=== PATIENT | female | born 1955 | race Caucasian/White ===

== ENCOUNTER 2016-05-07 02:03 | Inpatient (IN) | payer OTHER ==
[2016-05-04 09:15] VITALS: BP 140/80
[2016-05-04 10:01] LABS: BASO # 0.1 10*3/uL (0.0-0.1); BASO % 0.5 % (0.0-1.0); EOS # 0.1 10*3/uL (0.0-0.4); EOS % 0.9 % (1.0-4.0); HEMATOCRIT 38.7 % (37.0-47.0); HEMOGLOBIN 12.4 g/dl (12.0-16.0); IG # 0.1 10*3/uL (0.0-0.1); LYMPH # 1.6 10*3/uL (1.3-4.4); LYMPH % 13.3 % (27.0-41.0); MEAN CELL VOLUME 77.7 fl (81.0-99.0); MEAN CORPUSCULAR HGB 24.9 pg (27.0-31.0); MONO # 0.6 10*3/uL (0.1-1.0); NEUT # 9.4 10*3/uL (2.3-7.9); NEUT % 79.9 % (47.0-73.0); PLATELET COUNT AUTOMATED 378 10*3/uL (130-400); RED BLOOD COUNT 4.98 10*6/uL (4.10-5.10); RED CELL DISTRI WIDTH 17.4 % (0-14.5); WHITE BLOOD COUNT 11.8 10*3/uL (4.8-10.8)
[2016-05-04 10:23] LABS: BILIRUBIN NEGATIVE (NEGATIVE); BLOOD NEGATIVE (NEGATIVE); CLARITY CLOUDY (CLEAR); COLOR YELLOW (YELLOW); GLUCOSE NEGATIVE (NEGATIVE); KETONE NEGATIVE (NEGATIVE); LEUKO ESTERASE 1+ (NEGATIVE); NITRITE NEGATIVE (NEGATIVE); PH 6.5 (5.0-9.0); PROTEIN TRACE (NEGATIVE); SPECIFIC GRAVITY 1.025 (1.005-1.030)
[2016-05-04 10:38] LABS: CHLORIDE 102 mmol/L (98-107); POTASSIUM 4.1 mmol/L (3.5-5.1); SODIUM 135 mmol/L (136-145)
[2016-05-04 10:41] LABS: PROTHROMBIN TIME 10.4 SECONDS (9.0-12.4)
[2016-05-04 11:01] LABS: ALBUMIN 3.5 gm/dl (3.1-4.5); BACTERIA 3+; BILIRUBIN, DIRECT < 0.1 mg/dL (0.0-0.2); BILIRUBIN, TOTAL 0.4 mg/dl (0.2-1.0); BUN 9 mg/dl (7-24); CARBON DIOXIDE 20 mmol/L (21-32); EPITHELIAL CELLS 15-20; EST GLOM FILT AFRICAN AMERICAN > 60 ml/min; GLUCOSE 107 mg/dL (65-99); SGOT/AST 25 IU/L (3-35); SGPT/ALT 17 U/L (12-78); TOTAL PROTEIN 7.7 gm/dL (6.4-8.2)
[2016-05-04 11:02] LABS: CALCIUM OXALATE CRYSTALS TRACE
[2016-05-04 11:03] LABS: ALKALINE PHOSPHATASE 73 U/L (45-117)
[2016-05-07] VITALS (14 sets, daily range): BP systolic 125–181; BP diastolic 70–97
[~2016-05-07] VITALS: Ht 154.9 cm; Wt 62.4 kg
--- NOTE | ~2016-05-07 | CON ---
[place], [place] REPORT OF CONSULTATION NAME: ADITHYA WILLIS [facility] WITH [facility] #: [id number] UNIT #: [id number] ROOM: [facility] DOCTOR: DALILA MELENDREZ MD BIRTHDATE: [birth year] DOS: 05/09/2016 PULMONARY CONSULTATION EVALUATION AND MANAGEMENT CONSULTATION REQUESTED BY: Dr. Saucedo. REASON FOR CONSULTATION: To assess the patient for acute respiratory failure. HISTORY OF PRESENT ILLNESS: This is a 61-year-old white female who has been hospitalized since 05/07/2016. The patient has been admitted under the care of Dr. Saucedo for management of hiatal hernia. The patient had hiatal hernia surgery done with James fundoplication on 05/07/2016. The patient has been admitted to the hospital. The patient has been noted with progressive increased respiratory failure with hypoxia. The patient has been getting oxygen supplementation at this time with a venturi mask. The patient has been noted with coughing, which has not been noted with any sputum expectoration. The patient denies any symptoms of hemoptysis. The coughing has been noted without any sputum expectoration, shortness of breath was noted with wheezing as well. The patient has been complaining of some pain in the abdomen, most likely postsurgery which had been treated with IV pain medications. The patient has already had a CT scan of the chest, abdomen and pelvis done as well as a V/Q scan, which had been ordered by the primary care attending. The patient denies any symptoms of hemoptysis. REVIEW OF SYSTEMS: CONSTITUTIONAL: She does complain of symptoms of fatigue and tiredness without any fever or chills. EYES: Denies any burning, redness or tenderness. EARS, NOSE, THROAT SYMPTOMS: No sore throat, hoarseness, otalgia or postnasal drainage. CARDIOVASCULAR SYSTEM: Denies anginal pain, edema or pain of the lower extremities. GASTROINTESTINAL SYMPTOMS: Some abdominal pain was noted for this patient, but denies any nausea, vomiting, diarrhea, hematemesis, melena or hematochezia. GENITOURINARY: Denies dysuria, suprapubic pain or hematuria. SKIN: Denies any lesions or rashes. CENTRAL NERVOUS SYSTEM: Generalized weakness without symptoms of seizures, migraine headache or tingling sensations. Remaining systems were reviewed with the patient, they were noted all negative. The past medical history for the patient was noted with recent hospitalization as the patient had been treated in this hospital in April 2014. The patient remained in the hospital from ____ for the medical management of intractable vomiting, also noted with lactic acidosis at that time. PAST MEDICAL HISTORY: 1. History of hiatal hernia. 2. Anxiety and depression. 3. Chronic nicotine dependency. [place], [place] REPORT OF CONSULTATION NAME: ADITHYA WILLIS UNIT #: [id number] ROOM: [facility] DOCTOR: CINDY MELENDREZ MDM BIRTHDATE: [birth year] 4. Diverticulosis. 5. Peptic ulcer disease. 6. Arthritis. 7. Nonspecific colitis also described. PAST SURGICAL HISTORY: 1. Gastric surgery for this patient for removal of the bezoar. 2. Carpal tunnel repair. 3. Past EGD and colonoscopy. 4. Left rotator cuff surgery. 5. Tonsillectomy. 6. Teeth extraction. SOCIAL HISTORY: The patient stated that she is currently . She denies any history of alcohol use. Denies any illicit drugs use. She has 1 child. The smoking for the patient started as a teenager, was smoking 1 pack of cigarettes per day and stated that she was not smoking cigarettes a few days prior to admission to the hospital. FAMILY HISTORY: Mother 80 years old without any illnesses. The father is living, 80 years old with history of diabetes and parkinsonism. HOME MEDICATIONS: Listed prior to admission is use of Prozac, Neurontin, Prilosec, Zantac and Restoril. DRUG ALLERGIES: No known drug allergies. PHYSICAL EXAMINATION: GENERAL: This is a 61-year-old white female who has been noted currently with some distress at this time with tachypnea at rest, getting oxygen supplementation with the nasal cannula. Height for the patient recorded by the nursing staff at the time of admission was a height of 5 feet 1 inch, weight of 137 pounds, BMI 26.8. VITAL SIGNS: For the patient, which has been reviewed for this patient shows the temperature noted as normal, respiratory rate of 18-22, heart rate 91-112, blood pressure 137/62 to 140/76. Intake for the patient 900, output 1525 mL. Pulse oxygen saturation of the patient noted on venturi mask at this time as 91-92% saturation. HEENT: Examination of head was atraumatic. Eyes nonicterus. NECK: Supple. Oral mucosa was mildly dry. CARDIOVASCULAR SYSTEM: S1, S2 is audible. LUNGS: Noted crackles in the lungs, more on the left than the right side with moderate expiratory wheezing noted in the lungs bilaterally. ABDOMEN: Noted with some superficial tenderness. Bowel sounds present. EXTREMITIES: Show no edema, clubbing, or cyanosis. NEUROLOGIC: Cranial nerves 2-12 intact. No focal deficits. SKIN: No lesions or rashes. MUSCULOSKELETAL: No acute deformities. LABORATORY DATA: CBC that was done for the patient on 05/04/2016 as an [place], [place] REPORT OF CONSULTATION NAME: ADITHYA WILLIS UNIT #: [id number] ROOM: [facility] [birth year] outpatient, WBC count 11.8, hemoglobin, hematocrit and platelet count were normal. Outpatient chest x-ray of the patient on 05/07/2016, was noted without any acute pulmonary abnormalities. INR for patient on 05/04/2016 as an outpatient normal. BMP of the patient as an outpatient on 05/04/2016 was noted as sodium 135, CO2 of 20, remaining CMP was normal. CBC on 05/08/2016 for this patient, hemoglobin 10.6, hematocrit 34.0, platelet count was normal. CMP of the patient on 05/08/2016, glucose 107, remaining CMP was normal except albumin mildly decreased at 2.6 and total protein was also noted to be mildly decreased. CMP of the patient that was done today shows glucose of 122, BUN and creatinine was normal, albumin 2.7, AST 85. CBC this morning, WBC count of 16.1, hemoglobin 10.4, hematocrit 34.8, platelet count 257,000. Chest x-ray which was done on 05/07/2016 for the patient was with pulmonary venous congestion noted with evidence of infiltration with some atelectasis in the left lower lobe as well with possibility of pneumonia would be considered. CT scan of the chest which was done for the patient without contrast shows infiltration, which has been noted involving almost all of the subsegments of the left lung. Small right lower lobe infiltration of the patient was also noted with associated infiltration. Sequelae of the upper abdominal surgery of the patient was described as [id number] haziness described surrounding the proximal stomach within the lesser sac favored reflecting the mesenteric edema. There was no focal collection for this patient noted. The abdominal organ vascularity cannot be assessed correctly because of the lack of the IV contrast use. The V/Q scan for the patient was also completed today, which shows low probability of pulmonary embolism. Another chest x-ray of the patient which was done on 05/09/2016 shows increased infiltration for the patient, which is noted to be progressive for this patient in the left lung. I had also ordered the blood gases of the patient, as assessed for the patient shows pH of 7.30, pCO2 of 61, pO2 of 66.8 on 40% oxygen supplementation. IMPRESSION: 1. The patient with acute hypoxic respiratory failure after recent surgery for this patient with possibility of aspiration to be considered and interval development of pneumonia with areas of atelectasis with acute exacerbation of chronic obstructive pulmonary disease concomitantly as well as a result. The aspiration organism to be considered for community-acquired infection is the patient's Gram-positive organism in the differential diagnosis. 2. Status post James fundoplication for the patient as well noted with repair of the hiatal hernia. PLAN OF TREATMENT: The patient has been ordered BiPAP with setting of 16/10 for this patient for the next 3 hours with reassessment of the arterial blood gases to make further changes in the medical management. She was also started on IV Solu-Medrol. The bronchodilators have been started for this patient previously q.6 hours by the primary care attending were changed every 4 hours. She was also started on antibiotics orally and intravenously for coverage of the Gram-positive organisms. Monitor respiratory status closely in case of further worsening of the respiratory status and in spite of the current treatment, the patient might require intubation and mechanical ventilation if the respiratory failure progresses. The respiratory failure noted is acute hypercapnic and hypoxic in nature. The other previous pain medications are to be continued [place], [place] REPORT OF CONSULTATION NAME: ADITHYA WILLIS Cathryn UNIT #: [id number] ROOM: [facility] DOCTOR: DALILA MELENDREZ MD BIRTHDATE: [birth year] including continuation of DVT prophylaxis. The diagnosis of pulmonary embolism was noted low in the clinical assessment and is already sufficiently excluded with the V/Q scan for this patient, no further assessment will be necessary. Thank you for allowing me to participate in the care of this patient. DALILA ROCA MD CM:CONSTR:REPORT OF CONSULTATION 1516 05/11/16 0931 interface
--- NOTE | ~2016-05-07 | O ---
[place], [place] OPERATIVE NOTE NAME: ADITHYA WILLIS [facility] #: [id number] UNIT #: [id number] ROOM: 412 DOCTOR: DANE CHRISTIE MD BIRTHDATE: [birth year] DOS: 05/07/2016 PREOPERATIVE DIAGNOSIS: Hiatal hernia. POSTOPERATIVE DIAGNOSIS: Hiatal hernia. PROCEDURE: Hiatal hernia repair with James fundoplication. SURGEON: Dane Christie MD FURNITURE ASSEMBLY SUPERVISOR: MS3. ANESTHESIA: GET. INDICATIONS: This is a 61-year-old lady with a history of a symptomatic hiatal hernia with gastroesophageal reflux disease, who is here for the above-mentioned procedure. The procedure and its complications were explained to the patient in detail. Complications that were discussed included but were not limited to bleeding, infection, hematoma/seroma/abscess formation, prolonged postoperative pain, damage to the underlying vital structures, recurrence, and incisional hernia formation. She agreed to proceed. DESCRIPTION OF PROCEDURE: After identifying the patient, the patient was brought to the operating suite and laid in the supine position. After induction of general anesthesia, a Valente catheter was placed and the parts were then painted and draped in the usual sterile fashion. A time-out procedure was called. An incision in the upper abdomen was made in the midline. The skin and the subcutaneous tissue were incised in the line of the incision. The fascia was incised and the peritoneum was opened. A Bookwalter retractor was placed after the left triangular ligament was incised. The hernia was reduced in its entirety and the hernial sac itself was dissected away from the gastroesophageal region. The retroesophageal space was cleared and a [place] drain was passed in order to get good retraction. The remnants of the hernial sac were then excised and a good segment of the esophagus was obtained intraabdominally and it was ensured that the entire stomach was now in the abdominal cavity. At this point, two edges of the crura were approximated with the help of 0 silk in an interrupted fashion until adequate closure was obtained. Thereafter, the short gastric vessels were taken down with the help of LigaSure device and the fundus of the stomach was then passed under the esophagus and a fundoplication was performed with the help of 0 silk in an interrupted fashion as well. This was all done after a 50-Indonesian bougie was placed in order to get an adequate approximation and an approximation which was not too tight. Thereafter, the NG-tube was passed and it was confirmed to be placed in the stomach. Hemostasis was achieved and confirmed. Saline was used for irrigation. Thereafter, the fascia was approximated with the help of looped PDS in a running fashion. The skin edges were approximated with the help of susannah. Thereafter, the edges were approximated after the edges were infiltrated with 1% plain lidocaine. A dressing was placed. The patient tolerated the procedure well. An EGD was performed postoperatively by me and it showed that there was no obvious injury, ulceration, bleeding in this lumen of the stomach and lumen of the esophagus was [place], [place] OPERATIVE NOTE NAME: ADITHYA WILLIS UNIT #: [id number] ROOM: [facility] DOCTOR: DANE CHRISTIE MD BIRTHDATE: [birth year] not compromised. The patient was extubated uneventfully and brought back to the recovery room in a stable fashion. Dr. Dane Christie, the attending surgeon, was present throughout the operating case. Dane Christie MD CM:OPRECORD:OPERATIVE NOTE [id number] DANE CHRISTIE MD 05/07/16 1123 interface
--- NOTE | ~2016-05-07 | PR ---
[place], [place] PROGRESS NOTE NAME: ADITHYA WILLIS [facility] #: [id number] UNIT #: [id number] ROOM: [facility] DOCTOR: ABELINO HAINES MD,DALILA BIRTHDATE: [birth year] DOS: 05/10/2016 SUBJECTIVE: The patient was seen and examined on 05/10/2016. She has been noted to be quite comfortable at this time. Transferred to intensive care unit for further medical management including chronic severe hypercapnia and hypoxic respiratory failure. The patient has been responding to current treatment. She has expectorated a moderate amount of sputum this morning as well. The culture of the sputum for this patient has been sent to the lab. She had not been noted with symptoms of chest pain or any abdominal pain. Shortness of breath has been noted, better. OBJECTIVE: VITAL SIGNS: Normal temperature 99 degrees Fahrenheit, respiratory rate 24-21, heart rate 88-89, blood pressure 150/80 to 154/76. Intake is 150, output 2100 mL, negative mL. Pulse oxygen saturation is 3 liters, nasal cannula 93% saturation recorded. HEENT: Showed no new change. NECK: Supple. CARDIOVASCULAR: S1, S2 audible. LUNGS: Examination of the lungs for this patient noted with crackles of the lungs, noted mostly in the left side. There was no wheezing. ABDOMEN: Soft, nontender. EXTREMITIES: Show no edema. LABORATORY DATA: Arterial blood gas this morning for the patient showed a pH of 7.38, PCO2 of 47.9, PO2 of 114, on oxygen supplementation, nasal cannula. The arterial blood gas of the patient that was done yesterday for this patient after use of the BiPAP, the patient had 40% pH of 7.29, PCO2 of 63, PO2 of 82.6. Chest x-ray that was done this morning for the patient was reviewed as well, it shows infiltration for the patient noted to be decreased; however, significant infiltration is still noted in the left lingula and the left lower lobe. IMPRESSION: The patient with acute hypercapnic and hypoxic respiratory failure with chronic obstructive pulmonary disease exacerbation as well as the possibility of aspiration pneumonia for the patient with gram-positive organism, currently responding to treatment effectively. Reduction of pulmonary infiltration noted. Overall, the patient has been noted with improvement in the respiratory status. The wheezing was also noted to be much better. PLAN OF TREATMENT: Continue the current plan of management, antibiotics, bronchodilators, oxygen supplementation. Monitor respiratory status including culture results. Use of the BiPAP intermittently during the daytime and continuing at nighttime is still advised. Start reduction of the Solu-Medrol for the patient from tomorrow morning. Other supportive plan and management to be continued. Usual care. [place], [place] PROGRESS NOTE [id number] #: [id number] ROOM: [facility] DOCTOR: DALILA MELENDREZ MD BIRTHDATE: [birth year] DALILA ROCA MD CM:PNTRANS [id number] DALILA HAINES MD 05/11/16 0244 interface
--- NOTE | ~2016-05-07 | PR ---
[place], [place] PROGRESS NOTE NAME: ADITHYA WILLIS UNIT #: [id number] ROOM: 502 DOCTOR: ABELINO HAINES MD,DALILA BIRTHDATE: [birth year] DOS: 05/11/2016 PULMONARY PROGRESS NOTE SUBJECTIVE: She has been showing progressive reduction of the respiratory complaints at this time. This morning she has been using oxygen supplementation nasal cannula. She has not been noted with symptoms of chest pain, nausea, vomiting. BiPAP has been also used the patient intermittently. She has been resting, eating her food which has been advanced to a normal diet this morning with the breakfast. OBJECTIVE: VITAL SIGNS: Shows a normal temperature, respiratory rate of 14, heart rate of 73, blood pressure 124/67 this morning recorded, pulse oxygen saturation 98% saturation noted on nasal cannula and 97% to 99 on 35% oxygen with the BiPAP. HEENT: Showed no new change. NECK: Supple. CARDIOVASCULAR SYSTEM: S1, S2 audible. LUNGS: Noted scattered crackles of the lungs was noted. ABDOMEN: Soft and nontender. EXTREMITIES: Shows no edema. LABORATORY DATA: Culture of the sputum of yesterday of the patient was still pending at this time. Final results were not available as yet. The chest x-ray of the patient shows PICC line noted in place. The patient was noted with pulmonary infiltration with evidence of superimposed pulmonary venous congestion. IMPRESSION: 1. Resolving acute aspiration pneumonia, gram-positive organisms with improving acute hypoxic respiratory failure and hypercapnic respiratory failure as well. 2. Acute exacerbation of chronic obstructive pulmonary disease, improving as well. PLAN OF TREATMENT: Dose of Solu-Medrol has been decreased to 40 mg today. The patient could be transferred to another floor. Continue current antibiotic. The patient is on doxycycline oral use. One dose of Lasix will be given intravenously. Supportive care, other therapy, plan of management as well. Potential discharge in the morning would be considered for the patient based on the improvement in the cardiorespiratory status. BMP will be done in the morning to assess the BUN and creatinine and the potassium because of the use of Lasix. Another chest x-ray will be repeated in the morning as well. [place], [place] PROGRESS NOTE NAME: ADITHYA WILLIS UNIT #: [id number] ROOM: [facility] DOCTOR: DALILA MELENDREZ MD BIRTHDATE: [birth year] DALILA ROCA MD CM:PNTRANS [id number] DALILA HAINES MD 05/11/16 2328 interface
--- NOTE | ~2016-05-07 | PR ---
[place], [place] PROGRESS NOTE NAME: ADITHYA WILLIS UNIT #: [id number] ROOM: 502 DOCTOR: DALILA MELENDREZ MD BIRTHDATE: [birth year] DOS: 05/12/2016 PULMONARY FOLLOWUP SUBJECTIVE: She has been noted with much further improvement in the respiratory symptom. Denies symptoms of chest pain or any abdominal pain. The coughing has been improving. OBJECTIVE: VITAL SIGNS: The patient, which have been recorded, shows a normal temperature, respiratory rate 18, heart rate of 64. Blood pressure 126/82. Intake is 1000, output was not clearly documented, pulse oxygen 94% on room air at rest. HEENT: Showed no acute change. NECK: Supple. CARDIOVASCULAR: S1, S2 audible. LUNGS: Noted without any crackles or wheezing on the right side, basilar crackles noted in the left lower lung. ABDOMEN: Soft and nontender. LABORATORY DATA: The potassium level noted as 2.8 today. IMPRESSION: 1. The patient with progressive resolution of acute exacerbation of chronic obstructive pulmonary disease with resolving acute pneumonia. The chest x-ray also noted reduction of pulmonary infiltration. 2. Hypokalemia secondary to diuretics. PLAN OF TREATMENT: Supplementation of potassium has been ordered for the patient orally. Other previous treatment plan and management as well. Usual care. All other supportive plan of therapy and management. Three doses of potassium will be given orally for this patient today with repeat potassium level will be done later part of the afternoon. Potential discharge for patient could be considered for this patient after the potassium if it is noted normal. [place], [place] PROGRESS NOTE NAME: ADITHYA WILLIS UNIT #: [id number] ROOM: [facility] DOCTOR: DALILA MELENDREZ MD BIRTHDATE: [birth year] DALILA ROCA MD CM:PNTRANS [phone] DALILA HAINES MD 05/12/16 1109 interface
[~2016-05-07 02:03] MED LIST: ACETAMINOPHEN-H1 TA2 PO; ALBUTEROL0.09 MG/A2 IH; ALPRAZOLAM0.25 M2 PO; ATARAX,VISTARIL50 MG PO; ATIVAN1 MG PO; BENTYL10 MG PO; CELEXA40 MG PO; CIPRO500 MG PO; CITALOPRAM HYDR40 MG PO; CORDROL20 MG PO; Carafate1 GM PO; D-1000 185 MG-11 TAB PO; FLAGYL500 MG PO; FLEXERIL10 MG PO; GOOD NEIGHBOR100 M6 PO; HYDROCODONE BIT1 T11 PO; K-Dur 20MEQ20 MEQ PO; LEVAQUIN750 MG PO; LOMOTIL 0.025 M1 TA1 PO; METRONIDAZOLE500 M1 PO; MOTRIN800 MG PO; NAPROSYN500 MG PO; NATURE'S BLEND F1 MG PO; NEURONTIN300 MG PO; NEURONTIN600 MG PO; NICOTINE T21 MG/24 H T; OXYCODONE5 M1 PO; PANTOPRAZOLE SO40 MG PO; PERCOCET 325 MG1 TA2 PO; PHENERGAN25 M3 PO; PRILOSEC20 M1 PO; PRILOSEC40 MG PO; PROZAC20 MG PO; Percocet 325 MG1 TAB PO; Phenergan25 MG PO; RESTORIL15 MG PO; RESTORIL30 M1 PO; ROBAXIN750 MG PO; THERA1 TAB PO; TYLENOL WITH CO1 TAB PO; VISTARIL25 M1 PO; VISTARIL25 MG PO; XANAX0.25 MG PO; XANAX2 M1 PO; ZANTAC 150150 MG PO; ZOFRAN ODT4 MG SL; ZOFRAN4 MG PO
[2016-05-08] VITALS: BP 143/69
[2016-05-08 06:32] LABS: BASO % 0.2 % (0.0-1.0); EOS # 0.1 10*3/uL (0.0-0.4); EOS % 0.9 % (1.0-4.0); HEMOGLOBIN 10.6 g/dl (12.0-16.0); LYMPH # 1.9 10*3/uL (1.3-4.4); LYMPH % 18.1 % (27.0-41.0); MEAN CELL VOLUME 81.1 fl (81.0-99.0); MEAN CORPUSCULAR HGB 25.3 pg (27.0-31.0); MEAN CORPUSCULAR HGB CONC 31.2 g/dl (33.0-37.0); MEAN PLATELET VOLUME 9.4 fl (9.6-12.3); MONO # 0.6 10*3/uL (0.1-1.0); MONO % 6.1 % (3.0-9.0); NEUT # 7.7 10*3/uL (2.3-7.9); NEUT % 74.3 % (47.0-73.0); PLATELET COUNT AUTOMATED 285 10*3/uL (130-400); RED BLOOD COUNT 4.19 10*6/uL (4.10-5.10); RED CELL DISTRI WIDTH 18.1 % (0-14.5); WHITE BLOOD COUNT 10.4 10*3/uL (4.8-10.8)
[2016-05-08 06:46] LABS: ALBUMIN 2.6 gm/dl (3.1-4.5); ALKALINE PHOSPHATASE 63 U/L (45-117); BILIRUBIN, TOTAL 0.3 mg/dl (0.2-1.0); BUN 10 mg/dl (7-24); CARBON DIOXIDE 24 mmol/L (21-32); CHLORIDE 108 mmol/L (98-107); EST GLOM FILT AFRICAN AMERICAN > 60 ml/min; GLUCOSE 107 mg/dL (65-99); POTASSIUM 3.9 mmol/L (3.5-5.1); SGOT/AST 66 IU/L (3-35); SGPT/ALT 36 U/L (12-78); SODIUM 142 mmol/L (136-145); TOTAL PROTEIN 6.1 gm/dL (6.4-8.2)
[2016-05-08 08:00] VITALS: BP 140/80
[2016-05-08 12:00] VITALS: BP 128/72
[2016-05-08 16:00] VITALS: BP 135/64
[2016-05-08 20:00] VITALS: BP 140/60
[2016-05-09] VITALS: BP 137/62
[2016-05-09 07:27] LABS: CHLORIDE 107 mmol/L (98-107); POTASSIUM 3.9 mmol/L (3.5-5.1); SODIUM 142 mmol/L (136-145)
[2016-05-09 07:34] LABS: BASO % 0.2 % (0.0-1.0); EOS % 0.1 % (1.0-4.0); HEMATOCRIT 34.8 % (37.0-47.0); HEMOGLOBIN 10.4 g/dl (12.0-16.0); IG # 0.1 10*3/uL (0.0-0.1); LYMPH # 0.8 10*3/uL (1.3-4.4); LYMPH % 4.7 % (27.0-41.0); MEAN CORPUSCULAR HGB 25.4 pg (27.0-31.0); MEAN CORPUSCULAR HGB CONC 29.9 g/dl (33.0-37.0); MEAN PLATELET VOLUME 9.5 fl (9.6-12.3); MONO # 0.8 10*3/uL (0.1-1.0); MONO % 4.7 % (3.0-9.0); NEUT # 14.5 10*3/uL (2.3-7.9); NEUT % 89.7 % (47.0-73.0); PLATELET COUNT AUTOMATED 257 10*3/uL (130-400); RED BLOOD COUNT 4.09 10*6/uL (4.10-5.10); WHITE BLOOD COUNT 16.1 10*3/uL (4.8-10.8)
[2016-05-09 07:36] LABS: ALBUMIN 2.7 gm/dl (3.1-4.5); ALKALINE PHOSPHATASE 68 U/L (45-117); BILIRUBIN, TOTAL 0.3 mg/dl (0.2-1.0); BUN 10 mg/dl (7-24); CARBON DIOXIDE 24 mmol/L (21-32); EST GLOM FILT AFRICAN AMERICAN > 60 ml/min; GLUCOSE 122 mg/dL (65-99); SGOT/AST 85 IU/L (3-35); SGPT/ALT 34 U/L (12-78); TOTAL PROTEIN 6.8 gm/dL (6.4-8.2)
[2016-05-09 07:38] LABS: MEAN CELL VOLUME 85.1 fl (81.0-99.0)
[2016-05-09 08:00] VITALS: BP 140/76
[2016-05-09 12:00] VITALS: BP 149/80
[2016-05-09 14:05] LABS: ABG BASE EXCESS 2.5 mmol/L (-2.0-2.0); ABG CO2 CONTENT 31.5 mmol/L (23-27); ABG HCO3 29.6 mmol/l (22-26); ABG TEMPERATURE 98.2 F (98.0-99.0); ARTERIAL BLOOD GAS PH 7.301 (7.35-7.45); ARTERIAL BLOOD GAS PO2 66.8 mmHg (80-90)
[2016-05-09 16:00] VITALS: BP 111/62
[2016-05-09 18:40] LABS: ABG BASE EXCESS 2.9 mmol/L (-2.0-2.0); ABG CO2 CONTENT 32.1 mmol/L (23-27); ABG HCO3 30.2 mmol/l (22-26); ABG TEMPERATURE 97.9 F (98.0-99.0); ARTERIAL BLOOD GAS PH 7.298 (7.35-7.45); ARTERIAL BLOOD GAS PO2 82.6 mmHg (80-90)
[2016-05-09 20:00] VITALS: BP 124/68
[2016-05-10] VITALS (7 sets, daily range): BP systolic 123–158; BP diastolic 71–82
[2016-05-10 06:00] LABS: HEMATOCRIT 33.1 % (37.0-47.0); MEAN CORPUSCULAR HGB 25.1 pg (27.0-31.0); MEAN CORPUSCULAR HGB CONC 30.2 g/dl (33.0-37.0); MEAN PLATELET VOLUME 9.8 fl (9.6-12.3); PLATELET COUNT AUTOMATED 261 10*3/uL (130-400); RED BLOOD COUNT 3.99 10*6/uL (4.10-5.10); RED CELL DISTRI WIDTH 17.9 % (0-14.5); WHITE BLOOD COUNT 8.6 10*3/uL (4.8-10.8)
[2016-05-10 06:20] LABS: ALBUMIN 2.8 gm/dl (3.1-4.5); ALKALINE PHOSPHATASE 65 U/L (45-117); BILIRUBIN, TOTAL 0.3 mg/dl (0.2-1.0); BUN 19 mg/dl (7-24); CARBON DIOXIDE 29 mmol/L (21-32); CHLORIDE 103 mmol/L (98-107); EST GLOM FILT AFRICAN AMERICAN > 60 ml/min; GLUCOSE 161 mg/dL (65-99); POTASSIUM 3.9 mmol/L (3.5-5.1); SGOT/AST 63 IU/L (3-35); SGPT/ALT 32 U/L (12-78); SODIUM 142 mmol/L (136-145); TOTAL PROTEIN 7.6 gm/dL (6.4-8.2)
[2016-05-10 07:00] LABS: LYMPHOCYTE # 0.6 10*3/uL (1.3-4.4); MONOCYTE # 0.1 10*3/uL (0.1-1.0); NEUTROPHIL # 7.9 10*3/uL (2.3-7.9); NEUTROPHILS 92 % (47-73); PLATELET SUFFICIENCY NORMAL (NORMAL); TOTAL CELLS COUNTED 100 #CELLS
[2016-05-10 10:05] LABS: ABG BASE EXCESS 3.1 mmol/L (-2.0-2.0); ABG CO2 CONTENT 29.7 mmol/L (23-27); ABG HCO3 28.3 mmol/l (22-26); ARTERIAL BLOOD GAS PH 7.387 (7.35-7.45)
[2016-05-11] VITALS: BP 135/71
[2016-05-11 04:00] VITALS: BP 124/67
[2016-05-11 06:57] LABS: BASO % 0.1 % (0.0-1.0); HEMATOCRIT 28.9 % (37.0-47.0); IG # 0.1 10*3/uL (0.0-0.1); LYMPH # 0.7 10*3/uL (1.3-4.4); MEAN CELL VOLUME 81.4 fl (81.0-99.0); MEAN CORPUSCULAR HGB 25.4 pg (27.0-31.0); MEAN CORPUSCULAR HGB CONC 31.1 g/dl (33.0-37.0); MEAN PLATELET VOLUME 9.4 fl (9.6-12.3); MONO # 0.5 10*3/uL (0.1-1.0); MONO % 4.3 % (3.0-9.0); NEUT # 9.9 10*3/uL (2.3-7.9); NEUT % 88.6 % (47.0-73.0); PLATELET COUNT AUTOMATED 253 10*3/uL (130-400); RED BLOOD COUNT 3.55 10*6/uL (4.10-5.10); RED CELL DISTRI WIDTH 17.9 % (0-14.5); WHITE BLOOD COUNT 11.2 10*3/uL (4.8-10.8)
[2016-05-11 07:13] LABS: ALBUMIN 2.5 gm/dl (3.1-4.5); ALKALINE PHOSPHATASE 55 U/L (45-117); BILIRUBIN, TOTAL 0.3 mg/dl (0.2-1.0); BUN 20 mg/dl (7-24); CARBON DIOXIDE 30 mmol/L (21-32); CHLORIDE 102 mmol/L (98-107); EST GLOM FILT AFRICAN AMERICAN > 60 ml/min; GLUCOSE 149 mg/dL (65-99); POTASSIUM 3.6 mmol/L (3.5-5.1); SGOT/AST 31 IU/L (3-35); SGPT/ALT 29 U/L (12-78); SODIUM 142 mmol/L (136-145)
[2016-05-11 08:00] VITALS: BP 126/58
[2016-05-11 16:00] VITALS: BP 111/53
[2016-05-11 20:49] VITALS: BP 116/60
[2016-05-12 07:14] LABS: BUN 19 mg/dl (7-24); CARBON DIOXIDE 28 mmol/L (21-32); CHLORIDE 104 mmol/L (98-107); EST GLOM FILT AFRICAN AMERICAN > 60 ml/min; GLUCOSE 94 mg/dL (65-99); POTASSIUM 2.8 mmol/L (3.5-5.1); SODIUM 142 mmol/L (136-145)
[2016-05-12 08:00] VITALS: BP 126/82
[2016-05-12] MEDS ORDERED: Percocet 325 MG1 TAB PO (13:40)
[2016-05-12] MEDS ORDERED: DOXYCYCLINE MO100 M1 PO (13:40)
[2016-05-12] MEDS ORDERED: PREDNISONE10 MG PO (13:42)
== END 2016-05-12 15:53 | disposition home or self-care (01) | DRG 326 ==
LOC: SDC 02:03 → 4E 07:02 → SDC 07:30 → 4E 08:15 → 5E 08:15 → ICCU 08:15 → SDC 09:30 → ICCU 05-09 18:52 → 5E 05-11 14:37
PROVIDERS: Internal Medicine Critical Care Medicine; Surgery
DX: K44.9 Diaphragmatic hernia without obstruction or gangrene (principal); J69.0 Pneumonitis due to inhalation of food and vomit; J96.21 Acute and chronic respiratory failure with hypoxia; J96.22 Acute and chronic respiratory failure with hypercapnia; J44.1 Chronic obstructive pulmonary disease with (acute) exacerbation; J44.0 Chronic obstructive pulmonary disease with (acute) lower respiratory infection; E44.0 Moderate protein-calorie malnutrition; K29.70 Gastritis, unspecified, without bleeding; K21.9 Gastro-esophageal reflux disease without esophagitis; F41.9 Anxiety disorder, unspecified; E87.6 Hypokalemia; T50.2X5A Adverse effect of carbonic-anhydrase inhibitors, benzothiadiazides and other diuretics, initial encounter; F32.9 Major depressive disorder, single episode, unspecified; M19.90 Unspecified osteoarthritis, unspecified site; F17.210 Nicotine dependence, cigarettes, uncomplicated; Z83.3 Family history of diabetes mellitus; Z82.0 Family history of epilepsy and other diseases of the nervous system; Z79.899 Other long term (current) drug therapy; Z68.26 Body mass index [BMI] 26.0-26.9, adult

== ENCOUNTER 2016-05-15 13:31 | Inpatient (IN) | payer OTHER ==
[~2016-05-15] VITALS: Ht 154.9 cm; Wt 55.1 kg
[2016-05-15] VITALS (12 sets, daily range): BP systolic 125–168; BP diastolic 66–91
--- NOTE | ~2016-05-15 | CON ---
[place], [place] REPORT OF CONSULTATION NAME: ADITHYA WILLIS UNIT #: [id number] ROOM: 526 DOCTOR: PAXTON STOCKTON MD BIRTHDATE: [birth year] DOS: 05/17/2016 GASTROENDOSCOPIC REPORT HISTORY OF PRESENT ILLNESS: The patient a 61-year-old who has presented status post hiatal hernia repair, status post and addressed operative gomez. She has been on clear liquid and she has been tolerating clear liquid. She had bowel movements. REVIEW OF SYSTEMS: No hematemesis, no hematochezia, no shortness of breath, no chest pain today postop. Pain of the abdomen with retention sutures. PHYSICAL EXAMINATION: VITAL SIGNS: Stable. HEENT: Benign. NECK: Supple, no thyromegaly. CHEST: Symmetric anatomy, decreased air entry in general. HEART: Normal sinus rhythm. ABDOMEN: sutures are in place. No leaking, no seroma is noticed. Bowel sounds present. EXTREMITIES: No cyanosis. No pedal edema. NEUROLOGIC: Alert, oriented to time, place and person. LABORATORY DATA: Labs and records reviewed. CBC: H and H of 9 and 31. White blood cell of 10, platelet count is 295. Chest x-ray poorly positioned right cephalic PICC otherwise normal single image of the chest without acute findings. IMPRESSION: Postop hiatal hernia repair, recovery in progress, antibiotics, clear liquid, supportive management. PAXTON STOCKTON MD CM:CONSTR:REPORT OF CONSULTATION 1046 05/17/16 4055 interface
--- NOTE | ~2016-05-15 | PROC NOTE ---
[place], [place] PROCEDURE NOTE NAME: ADITHYA WILLIS [facility] #: [id number] UNIT #: [id number] ROOM: 526 DOCTOR: FLAQUITA AHUJA BIRTHDATE: [birth year] DOS: 05/20/2016 MODIFIED BARIUM SWALLOW LOCATION: [facility], room 526, bed #1. DOCTOR: Dr. Saucedo. RADIOLOGIST: Dr. John. BACKGROUND INFORMATION: The patient, a 61-year-old female was seen for modified barium swallow. This patient is status post fundoplication and hiatal hernia repair with dysphagia. Further medical history includes hiatal hernia, anxiety, depression, pancreatitis, GERD, and ethanol abuse. The patient reports that since her surgery in early April, she has been having difficulty swallowing solids, especially bread with a feeling that it is sticking. She states that at times she tries to take a drink, which has not been helpful, but she said eventually with time, the foods seems to go down. She currently receives a soft diet and thin liquids. For today's assessment, she was alert and able to follow all commands. Respiratory status was within normal limits. Oral peripheral examination revealed presence of several bottom teeth only. Lingual, labial, and buccal skills were within normal limits in terms of strength, range of motion, and coordination. The patient was able to volitionally swallow, volitional cough was weak. METHODS AND MATERIALS USED FOR THE EXAM: The patient was positioned in the lateral plane and examination was viewed under fluoroscopy. The patient was presented with a variety of consistencies to assess swallowing skills including applesauce mixed with barium presented in half teaspoon amounts, barium-coated bread presented in bite size piece and thin liquid barium taken by cup. The patient was given the cup and instructed to swallow in her normal sip size amount. ORAL PHASE: The oral phase was unremarkable with all consistencies given. The patient achieved adequate labial seal around cup and spoon with no anterior loss. Bolus formation and transit were adequate. Mastication was slow, but functional with solid consistency. Tongue to palate contact within normal limits. Tongue retraction within normal limits. Velar functioning was within normal limits with no nasal regurgitation displayed. PHARYNGEAL PHASE: The pharyngeal swallow occurred within a timely manner. During the swallow, laryngeal elevation and epiglottic function were within normal limits with no penetration or aspiration occurring with any consistency. There was no residue in the vallecula or pyriform post swallow. ESOPHAGEAL PHASE: This phase of the swallow was not formally assessed during this examination. [place], [place] PROCEDURE NOTE NAME: ADITHYA WILLIS UNIT #: [id number] ROOM: 526 DOCTOR: FLAQUITA AHUJA BIRTHDATE: [birth year] IMPRESSIONS AND RECOMMENDATIONS: Based upon assessment results, this 61-year-old patient displayed safe oral and pharyngeal swallowing skills for puree, solid and thin liquid consistencies. The patient reported that bread has been difficult due to a feeling of globus post swallow. She was assessed with bread and demonstrated no oral or pharyngeal difficulty. Following the exam, she stated that she felt like the bread was stuck and pointed to her upper sternal area; due to this, she may benefit from a barium swallow to further assess the esophageal phase. No diet changes are recommended at this time. Recommended that the patient use safe swallow strategies with meals, such as small bites and sips, chewing thoroughly and alternating liquids and solids. The patient verbalized understanding of all information provided. No followup treatment is recommended at this time. The patient's nurse was also educated on results and recommendations and verbalized understanding. Thank you very much for this referral. Should you have any questions regarding this patient, please contact the speech pathologist at [phone]. FLAQUITA AHUJA CM:PROCNOTE:PROCEDURE NOTE [id number] FLAQUITA AHUJA
--- NOTE | ~2016-05-15 | DS ---
[place], [place] DISCHARGE SUMMARY NAME: ADITHYA WILLIS [facility] #: [id number] UNIT #: [id number] ROOM: 526 DOCTOR: PAXTON STOCKTON MD BIRTHDATE: [birth year] DOS: 05/15/2016 The 61-year-old patient who was presented with status post James fundoplication, apparently the patient has proceeded with regular diet and sensation of a protrusion of the fundoplication epigastrium after Dr. Saucedo has assessed her. PAST MEDICAL HISTORY: Associated back pain, hiatal hernia, diverticulosis, degenerative joint disease, renal insufficiency, peptic ulcer disease. PAST SURGICAL HISTORY: Carpal tunnel, gastric surgery, rotator cuff, tonsillectomy. SOCIAL HISTORY: Alcohol consumption. FAMILY HISTORY: Noncontributory. ALLERGIES: No known medication. MEDICATIONS: Medication list has been reviewed. REVIEW OF SYSTEMS: Cannot be obtained from her, relied on old record. PHYSICAL EXAMINATION: GENERAL: Intubated patient. HEENT: Intubated device in place. RESPIRATORY: Under respirator assisted breath. HEART: On monitor, appears normal sinus rhythm. ABDOMEN: Open by Dr. Saucedo. IMPRESSION: Intraoperative endoscopy. PLAN: As commented on the operative report. [place], [place] DISCHARGE SUMMARY NAME: ADITHYA WILLIS UNIT #: [id number] ROOM: 526 DOCTOR: PAXTON STOCKTON MD BIRTHDATE: [birth year] PAXTON STOCKTON MD CM:DISCHARG 1630 [id number] PAXTON STOCKTON MD 05/15/16 2200 interface
--- NOTE | ~2016-05-15 | O ---
[place], [place] OPERATIVE NOTE [id number] UN[facility] #: [id number] ROOM: 526 DOCTOR: MAHIN PRUITT,PAXTON BIRTHDATE: [birth year] DOS: 05/15/2016 HISTORY OF PRESENT ILLNESS: This is a 61-year-old patient who was presented with chief complaint of concerns about the adhesion of James fundoplication. She has come to the Emergency Room. Apparently, Dr. Saucedo has the patient in the operating room. I have been asked for endoscopic comment during the intraoperative event for assessment of adhesion fundoplication. PROCEDURE: Today's procedure part of investigation is panendoscopy. PREMEDICATION: By Anesthesia. SCOPE: Olympus XQ10 video. REPORT: After putting the patient in the left lateral position and after application of lubricant to the scope, the scope was introduced; thereafter, under direct visualization, I advanced through the length of esophagus into gastric pouch. Small hiatal hernia was noticed, evidence of wrap was noticed; however, there is sufficient food and debris in the gastric pouch to prevent detail assessment of the stomach. However, we were able to negotiate the scope in the duodenum and GI reflection of the scope was performed, cardia was identified. Debris and food was noticed. The patient extubated, tolerated the procedure well. IMPRESSION: Status post James fundoplication, retained food and debris in the gastric pouch, patent duodenum. PLAN AND DISCUSSION: Case has been discussed intraoperatively with Dr. Saucedo, and they are planning to close the abdomen since no acute distress was identified. Thank you very much indeed. PAXTON STOCKTON MD CM:OPRECORD:OPERATIVE NOTE 1630 24 PAXTON STOCKTON MD 05/15/161925 interface
--- NOTE | ~2016-05-15 | PR ---
[place], [place] PROGRESS NOTE NAME: ADITHYA WILLIS UNIT #: [id number] ROOM: 526 DOCTOR: NARCISO POTTS MD BIRTHDATE: [birth year] DOS: 05/18/2016 REASON FOR VISIT: Ventricular tachycardia, nonsustained. HISTORY OF PRESENT ILLNESS: The patient is feeling better. No further arrhythmias. Denies any chest pain, palpitations, dizziness. Her abdominal discomfort is much better. She had fundoplication in the earlier part of the April and then had a wound dehiscence, underwent surgery for wound dehiscence. Denies any fever and chills. No palpitations. No PND, no orthopnea. REVIEW OF SYSTEMS: Review of the 8 systems negative except as mentioned above. PHYSICAL EXAMINATION: VITAL SIGNS: Blood pressure 100/50, pulse 81, respiratory rate 20. GENERAL: Alert, comfortable, in no acute distress. HEENT: Pupils are round and equal. No jaundice. Tongue was moist and pharynx was clear. NECK: Supple. No distended neck veins. No carotid bruit. CHEST: Nontender. LUNGS: Clear to auscultation bilaterally. HEART: Regular rhythm. No S3. ABDOMEN: Bowel sounds normal. EXTREMITIES: Showed no edema. Distal pulses are palpable. SKIN: Warm and dry. No cyanosis, no clubbing. NEUROLOGIC: The patient is alert, oriented. No focal neurologic deficit. IMPRESSION: 1. Nonsustained ventricular tachycardia, asymptomatic, no recurrence. Her potassium and magnesium levels are normal. 2. Postoperative anemia. 3. History of tobacco use. 4. History of peptic ulcer disease. 5. Status post surgery of abdominal wound dehiscence with history of recent fundoplication. RECOMMENDATIONS: 1. ____We will check a 2D echo for LV function. 2. Continue current medications. 3. Possible discharge in the next 24-48 hours and we will see her as an outpatient in our office and consider outpatient stress test. 4. Risk factor modification to quit smoking was discussed. [place], [place] PROGRESS NOTE NAME: ADITHYA WILLIS UNIT #: [id number] ROOM: 526 DOCTOR: NARCISO POTTS MD BIRTHDATE: [birth year] NARCISO POTTS MD CM:PNTRANS 1135 36 NARCISO POTTS MD 05/19/161636 interface
--- NOTE | ~2016-05-15 | CON ---
[place], [place] REPORT OF CONSULTATION NAME: ADITHYA WILLIS UNIT #: [id number] ROOM: 526 DOCTOR: NARCISO POTTS MD BIRTHDATE: [birth year] DOS: 05/17/2016 CARDIOLOGY CONSULTATION REASON FOR CONSULTATION: Nonsustained ventricular tachycardia. CLINICAL HISTORY: The patient is a 61-year-old patient who was admitted for abdominal wound dehiscence and underwent surgical repair and she noted to have a 10 beat nonsustained V-tach last night and she was asymptomatic and Cardiology consult for further recommendations. She has no prior history of CAD, hypertension, diabetes. She had a fundoplication on 05/07/2016 and she was admitted for wound dehiscence and underwent surgery by Dr. Saucedo. She denies any chest pressure palpitation, no edema, no orthopnea, no fever and chills. Her abdominal pain is much better. At home, she has no palpitations, dizziness. No edema, no orthopnea, no fever, no cough, no hemoptysis. REVIEW OF SYSTEMS: Review of the 8 systems negative except as mentioned above. PAST MEDICAL HISTORY: 1. History of hiatal hernia, status post surgery. 2. Chronic back pain. 3. Colitis. 4. Depression. 5. Peptic ulcer disease. 6. Vitamin D deficiency. PAST SURGICAL HISTORY: 1. Status post fundoplication 05/07/2016. 2. History of carpal tunnel surgery. 3. Multiple endoscopies. 4. Rotator cuff surgery. 5. Tonsillectomy. ALLERGIES: The patient has no known drug allergies. SOCIAL HISTORY: The patient does smoke and use occasional alcohol, but denies any illicit drug abuse. FAMILY HISTORY: Father living, has diabetes and Parkinson's. Mother is living and no significant coronary artery disease. CURRENT MEDICATIONS: Reviewed. PHYSICAL EXAMINATION: VITAL SIGNS: Blood pressure 106/52, pulse 72, respirations 16. GENERAL: Alert, comfortable, in no acute distress. HEAD AND NECK: Pupils are round and equal. No jaundice. Tongue was moist and pharynx was clear. NECK: Supple, no distended neck veins, no carotid bruit. CHEST: Symmetrical, nontender. [place], [place] REPORT OF CONSULTATION NAME: ADITHYA WILLIS UNIT #: [id number] ROOM: 526 DOCTOR: DELROY PRUITT,NARCISO BIRTHDATE: [birth year] LUNGS: Clear to auscultation bilaterally. HEART: Regular rhythm, no S3, no palpable thrills. ABDOMEN: Bowel sounds normal. EXTREMITIES: Showed no edema. Distal pulses are palpable. SKIN: Warm and dry. No cyanosis, no clubbing. NEUROLOGIC: The patient is alert, oriented. No focal neurologic deficit. RECTAL: Deferred. GENITOURINARY: Deferred. REVIEW OF THE DIAGNOSTIC TESTS: Her labs and rhythm strips reviewed. Potassium is 4.2, magnesium 2.2. IMPRESSION: 1. Nonsustained ventricular tachycardia, asymptomatic. 2. Status post abdominal wound dehiscence status post surgery with history of recent fundoplication. 3. Anemia, postoperative hemoglobin 9.6. 4. History of tobacco use. 5. History of peptic ulcer disease. RECOMMENDATIONS: 1. She is currently asymptomatic and her potassium and mag levels are normal. Check 2D echo for LV function and valvular function. Continue to monitor heart rate and blood pressures. 2. If the 2D echo is unremarkable, then we will schedule for outpatient stress test when she is clinically more stable. Further recommendations based on her echo findings. 3. The patient was counseled to quit smoking. Thank you, Dr. Gar for asking us to evaluate this patient and we will follow the case along with you. CHACHAVEZ POTTS MD CM:CONSTR:REPORT OF CONSULTATION 1452 05/18/16 0302 interface
--- NOTE | ~2016-05-15 | CON ---
[place], [place] REPORT OF CONSULTATION [id number] UN[facility] #: [id number] ROOM: 526 DOCTOR: EDDA QUIJANO MD BIRTHDATE: [birth year] DOS: REQUESTING PHYSICIAN: Dr. Gar. INDICATION: V-tach occurred on the . ASSESSMENT: 1. Current admission for wound dehiscence. 2. Recent hernia surgery. 3. Short 2 runs of nonsustained VT that appears to be asymptomatic. 4. Active tobacco abuse. 5. Depression. 6. Severe hypokalemia. 7. Anxiety. 8. Vitamin D deficiency. 9. Anemia. 10. Elevated cardiac enzymes. 11. Severe bilateral lung infiltrate on CT scan of the chest. 12. Hypoxia on O2. PLAN: 1. Cycle cardiac enzymes. 2. Proceed with echocardiogram. 3. Enteric coated aspirin 81 mg if okay with Surgery. 4. Lopressor 12.5 mg b.i.d. 5. Ischemic workup will be considered later on. 6. Transfer patient to a monitor bed. 7. Check ABG and I will consider transferring to Intensive Care Unit pending the results. 8. Blood culture and antibiotic per primary team. 9. Keep potassium over 4 and magnesium over 2 (both labs were sent). HISTORY AND PHYSICAL: The patient is a pleasant 61-year-old female unknown to our practice, was referred by Dr. Gar for further evaluation, a short run of nonsustained VT that occurred on the . The patient from the cardiac point of view completely asymptomatic, she never had any complaint of chest pain, chest pressure, heaviness or tightness. Never had any symptomatic palpitation or associated dizziness, lightheadedness, or near syncope. She is reporting significant hypoxemia and currently on 40% facial mask. CT scan of the chest was done today, which was showing extensive infiltrates, bilateral. ABG was ordered and still pending. Prior to this presentation, the patient had been quite active, functional and never had any cardiac complaint or cardiac history. No PND, orthopnea or pedal edema. Never had any racing heartbeats or dizziness, lightheadedness or near syncope. No fever, no chills, no night sweats prior to this presentation. This is a readmission for a wound dehiscence. There is a significant noncompliance history on patient behalf in terms of sitting up or mobilization. [place], [place] REPORT OF CONSULTATION NAME: [facility] WILLIS [facility] [id number] UNIT #: [id number] ROOM: 526 DOCTOR: EDDA QUIJANO MD BIRTHDATE: [birth year] The patient denies any current fever, chills or night sweats; there is significant decrease in appetite. The patient during exam did exhibit significant tendency for chills. PAST MEDICAL HISTORY: As detailed in my assessment. SOCIAL HISTORY: The patient continued to smoke, has been doing since her adulthood. No heavy alcohol or illicit drug abuse. FAMILY HISTORY: There is no early family history of heart disease. CURRENT MEDICATIONS: Ioversol, heparin, Levaquin, potassium, oxycodone, doxycycline, fentanyl, vitamin D, Neurontin, , Prozac, Zofran, Tylenol. ALLERGIES: The patient has no known drug allergies. REVIEW OF SYSTEMS: Currently, the patient denies any headache, diplopia, or blurry vision. The patient admits to chills, but no fever, no night sweats. Significant decrease in appetite. Significant abdominal pain at the site of surgery. No reported bright blood per rectum. Admits to joint pain and muscular pain. Admits to generalized anxiety and depression. No polyuria, no polydipsia, no skin rash. Review of all other systems has been negative. PHYSICAL EXAMINATION: GENERAL: The patient is alert and oriented x 3. She is in moderate distress due to the pain on facial mask slightly short of breath. VITAL SIGNS: Blood pressure 136/64, heart rate 87, respiratory rate of 20, temperature 98, a T-max of 99.3. HEENT: Extraocular muscles intact. Pupils equal, round, reactive to light. Conjunctivae: No pallor. Throat: No petechiae. NECK: Good upstroke, no bruit. HEART: S1, S2 with holosystolic murmur in the left upper sternal border. CHEST AND BACK: Not examined. LUNGS: Decreased air movement, fine rhonchi could be heard throughout the lungs, especially at the base. No madison wheezing. ABDOMEN: Distended, tender. Very limited exam. EXTREMITIES: Lower extremities: There is no edema. Faint distal pulses. NEUROLOGIC: Grossly nonfocal. SKIN: No significant rash. LABORATORY DATA: White count 17.9, hemoglobin 9.4. There is a left shift, 89%. Potassium was 3.3, currently 3.5. Creatinine 0.5, GFR more than 60%. AST 36, alkaline phosphatase 122, albumin 2.4. [place], [place] REPORT OF CONSULTATION NAME: ADITHYA WILLIS UNIT #: [id number] ROOM: 526 DOCTOR: EDDA QUIJANO MD BIRTHDATE: [birth year] EDDA QUIJANO MD CM:CONSTR:REPORT OF CONSULTATION 1155 05/24/16 1714 interface
--- NOTE | ~2016-05-15 | PR ---
[place], [place] PROGRESS NOTE NAME: ADITHYA WILLIS [facility] #: [id number] UNIT #: [id number] ROOM: 526 DOCTOR: SARAVANAN DEL RIO MD BIRTHDATE: [birth year] DOS: 05/25/2016 CARDIOLOGY FOLLOWUP SUBJECTIVE: The patient was seen at her bedside for wide complex tachycardia. The patient is a 61-year-old woman who presented to the hospital initially, status post James fundoplication. She did have an abdominal fascial wound dehiscence, which required repair. She remains in the hospital for management of that. We were asked to see her because she had short runs of nonsustained ventricular tachycardia. Cardiac biomarkers were negative; however, she was noted to have hypokalemia. She has required replacement on several occasions. An echocardiogram was done by Dr. Mariano on May 18, 2016, this demonstrated normal left ventricular size and function with an ejection fraction between 65 and 70%. She had trace TR and trace MR. No other abnormalities were noted. Her current problems include worsening respiratory failure. A chest x-ray done on May 23, showed new bibasilar infiltrates consistent with pneumonia. This is confirmed by a CT scan done of the chest on May 24, 2016. The patient's white count remains elevated at 11,900; however, she is afebrile. PHYSICAL EXAMINATION: GENERAL: When I entered the room, the patient was lying flat in bed. She is breathing with a venti mask and does appear to be somewhat uncomfortable. VITAL SIGNS: Pulse is 65 and regular, blood pressure is 124/62. She is afebrile. She weighs 55.1 kilograms with a body mass index of 22.9. NECK: Supple. She has no jugular distention. CHEST: Has decreased breath sounds bilaterally. HEART: Has a regular rhythm with an S4 gallop. EXTREMITIES: Showed no edema. LABORATORY DATA: Electrolytes this morning show sodium 137, potassium 3.3, chloride 102, CO2 23, BUN 50, creatinine 0.61. Potassium is being replaced. She has normal left ventricular function and no complaints of chest pain. Review of monitor strips do not show any prolonged arrhythmias. For now, we will continue to observe her intermittently. Once she has recovered, we could consider an ischemia workup, but there is no hurry for us to complete that at this time. We will continue to follow her intermittently and we thank the hospitalist physicians for asking our advice regarding her care. [place], [place] PROGRESS NOTE NAME: ADITHYA WILLIS UNIT #: [id number] ROOM: 526 DOCTOR: SARAVANAN DEL RIO MD BIRTHDATE: [birth year] SARAVANAN DEL RIO MD CM:PNTRANS 1159 08 SARAVANAN DEL RIO MD 05/25/162308 interface
--- NOTE | ~2016-05-15 | CON ---
[place], [place] REPORT OF CONSULTATION [id number] UNIT #: [id number] ROOM: 526 DOCTOR: PAXTON STOCKTON MD BIRTHDATE: [birth year] DOS: 05/16/2016 HISTORY OF PRESENT ILLNESS: A 61-year-old patient who has presented with chief complaint of initially with what was considered to be dehiscence of her fundoplication what she describes that she noticed a ____ of the site and emesis and unableness to swallow, apparently. She contacts Dr. Friedman of General Surgery and patient was explored and during the operation I was asked for endoscopic assessment of the gastric pouch, which was found to have a hiatal sac as well as retained food. Postoperatively, she is doing well today her white blood cell was 16, H and H of 11 and 36. Her INR is 1.0. Urinalysis is unremarkable. Comprehensive metabolic panel, electrolytes balanced, magnesium 2.2. TSH of 5.6 elevated, troponin was normal. REVIEW OF SYSTEMS: No hematemesis, no hematochezia. No chest pain, no shortness of breath, still postop pain. PHYSICAL EXAMINATION: VITAL SIGNS: Stable. HEENT: Within normal limits. NECK: Supple, no thyromegaly. CHEST: Symmetric anatomy, equal expansion. HEART: Normal sinus rhythm, no gallop, no murmur. ABDOMEN: Soft. No hepato-organomegaly postop. EXTREMITIES: No cyanosis. No pedal edema. NEUROLOGIC: Alert, oriented to time, place and person. IMPRESSION: Repair abdominal fascial wound dehiscence status post James fundoplication. PLAN AND DISCUSSION: I recommend the patient to remain on liquid diet, so she gets adjusted to new status of her repair and follow up with Dr. Saucedo in the office as far as the wound management is concerned and clinical reassessment. PAXTON STOCKTON MD CM:CONSTR:REPORT OF CONSULTATION 1648 05/18/16 1057 interface
--- NOTE | ~2016-05-15 | O ---
[place], [place] OPERATIVE NOTE NAME: ADITHYA WILLIS [facility] #: [id number] UNIT #: [id number] ROOM: 526 DOCTOR: DANE CHRISTIE MD BIRTHDATE: [birth year] DOS: 05/15/2016 PREOPERATIVE DIAGNOSIS: Abdominal fascial wound dehiscence. POSTOPERATIVE DIAGNOSIS: Abdominal fascial wound dehiscence. PROCEDURE: Repair of abdominal fascial wound dehiscence. SURGEON: Dane Christie M.D. OIL WELL CABLE TOOL DRILLER: MS3. ANESTHESIA: General with endotracheal intubation. INDICATIONS: This is a 61-year-old lady who underwent open hiatal hernia repair with a James fundoplication on 05/07/2016, who came into Emergency Room with signs and symptoms of abdominal fascial dehiscence. She was taken emergently to the operating room for repair. The procedure and its complications were explained to the patient in detail preoperatively. Complications that were discussed included but were not limited to, bleeding, infection, damage to underlying vital structures and recurrence. She agreed to proceed. DESCRIPTION OF PROCEDURE: After identifying the patient, the patient was brought to the operating suite and laid in the supine position. After induction of general anesthesia, the parts were painted and draped in the usual sterile fashion. A time-out procedure was called. The susannah were removed and there was found to be a complete disruption of the fascial approximation because of a break in the suture (looped PDS) and there was omentum which was sticking out in lower aspect of the wound. The entire suture line was removed and the fascial edges were freshened. At this point, the stomach and the gastroesophageal junction as well as the repair site was visualized and it was found to be intact. The entire stomach was in the abdominal cavity and there was no evidence of recurrence of the hiatal hernia. The wrap was intact as well. At this point, I requested Dr. Camargo from Gastroenterology to step in to do an EGD, which was performed by him and this was within normal and this note will be dictated by him in a separate note. After his procedure was done, saline was used for irrigation and 4 retention sutures were placed to the fascia and the skin and this was taken with the help of #5 Ethibond. At this point, the fascial edges were approximated with the help of looped PDS in a running fashion and the skin was then approximated with the help of susannah. Over the staple closure, the Ethibond was tied together with intervening red rubber catheter bridges. Dressing was placed. The patient tolerated the procedure well and was extubated and brought back to the recovery room in stable fashion. There were no complications. Dr. Dane Christie, the attending surgeon, was present throughout the operating case. [place], [place] OPERATIVE NOTE NAME: ADITHYA WILLIS [facility] [id number] UNIT #: [id number] ROOM: 526 DOCTOR: DANE CHRISTIE MD BIRTHDATE: [birth year] Dane Christie MD CM:OPRECORD:OPERATIVE NOTE [id number] DANE CHRISTIE MD 05/15/161924 interface
[~2016-05-15 13:31] MED LIST changes: +DOXYCYCLINE MO100 M1 PO; +PREDNISONE10 MG PO
[2016-05-15 14:40] LABS: HEMATOCRIT 37.4 % (37.0-47.0); HEMOGLOBIN 11.9 g/dl (12.0-16.0); MEAN CELL VOLUME 79.2 fl (81.0-99.0); MEAN CORPUSCULAR HGB 25.2 pg (27.0-31.0); MEAN CORPUSCULAR HGB CONC 31.8 g/dl (33.0-37.0); PLATELET COUNT AUTOMATED 395 10*3/uL (130-400); RED BLOOD COUNT 4.72 10*6/uL (4.10-5.10); RED CELL DISTRI WIDTH 18.4 % (0-14.5); WHITE BLOOD COUNT 13.1 10*3/uL (4.8-10.8)
[2016-05-15 14:48] LABS: PROTHROMBIN TIME 10.9 SECONDS (9.0-12.4)
[2016-05-15 14:56] LABS: ALBUMIN 3.2 gm/dl (3.1-4.5); ALKALINE PHOSPHATASE 57 U/L (45-117); BILIRUBIN, TOTAL 0.2 mg/dl (0.2-1.0); BUN 27 mg/dl (7-24); CARBON DIOXIDE 18 mmol/L (21-32); CHLORIDE 106 mmol/L (98-107); EST GLOM FILT AFRICAN AMERICAN > 60 ml/min; GLUCOSE 163 mg/dL (65-99); POTASSIUM 4.1 mmol/L (3.5-5.1); SGOT/AST 16 IU/L (3-35); SGPT/ALT 26 U/L (12-78); SODIUM 138 mmol/L (136-145); TOTAL PROTEIN 7.2 gm/dL (6.4-8.2)
[2016-05-15 14:57] LABS: C-REACTIVE PROTEIN < 0.29 MG/DL (0-0.3)
[2016-05-15 14:59] LABS: EOSINOPHIL # 0.1 10*3/uL (0-0.4); EOSINOPHILS 1 % (1-4); LYMPHOCYTE # 1.6 10*3/uL (1.3-4.4); METAMYELOCYTES 1 % (0-0); MONOCYTE # 0.3 10*3/uL (0.1-1.0); NEUTROPHILS 84 % (47-73); TOTAL CELLS COUNTED 100 #CELLS
[2016-05-15 15:00] LABS: PLATELET SUFFICIENCY NORMAL (NORMAL); POLYCHROMASIA SLIGHT
[2016-05-15 15:01] LABS: MICROCYTOSIS SLIGHT; OVALOCYTES FEW
[2016-05-15] MEDS ORDERED: VISTARIL50 MG PO (15:38)
[2016-05-15] MEDS ORDERED: PERCOCET 325 MG1 TA5 PO (15:39)
[2016-05-16] VITALS: BP 159/77
[2016-05-16 06:49] LABS: HEMATOCRIT 36.9 % (37.0-47.0); HEMOGLOBIN 11.3 g/dl (12.0-16.0); MEAN CORPUSCULAR HGB 25.4 pg (27.0-31.0); MEAN CORPUSCULAR HGB CONC 30.6 g/dl (33.0-37.0); MEAN PLATELET VOLUME 9.4 fl (9.6-12.3); PLATELET COUNT AUTOMATED 436 10*3/uL (130-400); RED BLOOD COUNT 4.45 10*6/uL (4.10-5.10); RED CELL DISTRI WIDTH 18.5 % (0-14.5); WHITE BLOOD COUNT 16.2 10*3/uL (4.8-10.8)
[2016-05-16 06:53] LABS: MEAN CELL VOLUME 82.9 fl (81.0-99.0)
[2016-05-16 07:10] LABS: ALBUMIN 3.1 gm/dl (3.1-4.5); BILIRUBIN, TOTAL 0.4 mg/dl (0.2-1.0); BUN 19 mg/dl (7-24); CARBON DIOXIDE 22 mmol/L (21-32); CHLORIDE 110 mmol/L (98-107); EST GLOM FILT AFRICAN AMERICAN > 60 ml/min; GLUCOSE 95 mg/dL (65-99); MAGNESIUM 2.2 mg/dL (1.5-2.1); PHOSPHOROUS 3.6 mg/dL (2.5-4.9); POTASSIUM 4.2 mmol/L (3.5-5.1); SGPT/ALT 24 U/L (12-78); SODIUM 143 mmol/L (136-145)
[2016-05-16 07:14] LABS: BILIRUBIN NEGATIVE (NEGATIVE); BLOOD NEGATIVE (NEGATIVE); CLARITY CLEAR (CLEAR); COLOR YELLOW (YELLOW); GLUCOSE NEGATIVE (NEGATIVE); KETONE NEGATIVE (NEGATIVE); LEUKO ESTERASE NEGATIVE (NEGATIVE); NITRITE NEGATIVE (NEGATIVE); PH 5.5 (5.0-9.0); PROTEIN TRACE (NEGATIVE); SPECIFIC GRAVITY 1.025 (1.005-1.030); UROBILINOGEN 0.2 E.U./dl (0.2-1.0)
[2016-05-16 07:15] LABS: PROTHROMBIN TIME 10.6 SECONDS (9.0-12.4)
[2016-05-16 07:16] LABS: ALKALINE PHOSPHATASE 54 U/L (45-117); EOSINOPHIL # 0.2 10*3/uL (0-0.4); EOSINOPHILS 1 % (1-4); LYMPHOCYTE # 4.2 10*3/uL (1.3-4.4); MONOCYTE # 0.6 10*3/uL (0.1-1.0); MYELOCYTES 1 % (0-0); NEUTROPHILS 68 % (47-73); POLYCHROMASIA SLIGHT; SGOT/AST 21 IU/L (3-35); TOTAL CELLS COUNTED 100 #CELLS; TOTAL PROTEIN 6.9 gm/dL (6.4-8.2)
[2016-05-16 07:17] LABS: PLATELET SUFFICIENCY HIGH (NORMAL); TOXIC GRANULATION SLIGHT
[2016-05-16 07:21] LABS: BACTERIA TRACE; URINE REFLEX COMMENT NO (NO)
[2016-05-16 08:00] VITALS: BP 130/64
[2016-05-16 12:00] VITALS: BP 127/67
[2016-05-16 16:00] VITALS: BP 126/60
[2016-05-16 20:00] VITALS: BP 127/51
[2016-05-17] VITALS: BP 126/61
[2016-05-17 06:46] LABS: BASO % 0.1 % (0.0-1.0); EOS # 0.1 10*3/uL (0.0-0.4); EOS % 0.9 % (1.0-4.0); HEMATOCRIT 31.8 % (37.0-47.0); HEMOGLOBIN 9.6 g/dl (12.0-16.0); IG # 0.1 10*3/uL (0.0-0.1); LYMPH # 1.5 10*3/uL (1.3-4.4); LYMPH % 13.9 % (27.0-41.0); MEAN CORPUSCULAR HGB 25.1 pg (27.0-31.0); MEAN CORPUSCULAR HGB CONC 30.2 g/dl (33.0-37.0); MEAN PLATELET VOLUME 9.1 fl (9.6-12.3); MONO # 0.8 10*3/uL (0.1-1.0); MONO % 7.2 % (3.0-9.0); NEUT % 76.6 % (47.0-73.0); PLATELET COUNT AUTOMATED 294 10*3/uL (130-400); RED BLOOD COUNT 3.83 10*6/uL (4.10-5.10); RED CELL DISTRI WIDTH 18.2 % (0-14.5); WHITE BLOOD COUNT 10.4 10*3/uL (4.8-10.8)
[2016-05-17 08:00] VITALS: BP 129/74
[2016-05-17 12:00] VITALS: BP 144/88
[2016-05-17 16:00] VITALS: BP 122/70
[2016-05-17 20:00] VITALS: BP 103/90; BP 118/72
[2016-05-18] VITALS: BP 114/65
[2016-05-18 08:00] VITALS: BP 127/65
[2016-05-18 12:00] VITALS: BP 100/50
[2016-05-18 16:00] VITALS: BP 120/60
[2016-05-18 20:00] VITALS: BP 118/63
[2016-05-19] VITALS: BP 117/73
[2016-05-19 08:00] VITALS: BP 124/54
[2016-05-19 12:00] VITALS: BP 124/80
[2016-05-19 16:00] VITALS: BP 125/64
[2016-05-19 20:00] VITALS: BP 128/76
[2016-05-20] VITALS: BP 117/55
[2016-05-20 08:00] VITALS: BP 126/71
[2016-05-20 12:00] VITALS: BP 111/56
[2016-05-20 16:00] VITALS: BP 123/46
[2016-05-20 20:00] VITALS: BP 128/62
[2016-05-21] VITALS: BP 109/48
[2016-05-21 08:00] VITALS: BP 108/50
[2016-05-21 12:00] VITALS: BP 124/61
[2016-05-21 16:00] VITALS: BP 111/71
[2016-05-21 20:00] VITALS: BP 117/58
[2016-05-22] VITALS: BP 113/67
[2016-05-22 08:00] VITALS: BP 108/50
[2016-05-22 12:00] VITALS: BP 130/60
[2016-05-22 16:00] VITALS: BP 122/59
[2016-05-22 20:00] VITALS: BP 120/61
[2016-05-23] VITALS: BP 118/52
[2016-05-23 05:00] VITALS: BP 112/56
[2016-05-23 05:56] LABS: BASO % 0.2 % (0.0-1.0); EOS # 0.1 10*3/uL (0.0-0.4); EOS % 0.4 % (1.0-4.0); HEMATOCRIT 29.7 % (37.0-47.0); HEMOGLOBIN 9.4 g/dl (12.0-16.0); IG # 0.1 10*3/uL (0.0-0.1); LYMPH # 0.9 10*3/uL (1.3-4.4); LYMPH % 4.7 % (27.0-41.0); MEAN CELL VOLUME 81.8 fl (81.0-99.0); MEAN CORPUSCULAR HGB 25.9 pg (27.0-31.0); MEAN CORPUSCULAR HGB CONC 31.6 g/dl (33.0-37.0); MEAN PLATELET VOLUME 9.6 fl (9.6-12.3); MONO # 0.8 10*3/uL (0.1-1.0); MONO % 4.3 % (3.0-9.0); NEUT # 16.5 10*3/uL (2.3-7.9); NEUT % 89.7 % (47.0-73.0); PLATELET COUNT AUTOMATED 334 10*3/uL (130-400); RED BLOOD COUNT 3.63 10*6/uL (4.10-5.10); WHITE BLOOD COUNT 18.4 10*3/uL (4.8-10.8)
[2016-05-23 05:59] LABS: ALBUMIN 2.8 gm/dl (3.1-4.5); ALKALINE PHOSPHATASE 96 U/L (45-117); BILIRUBIN, TOTAL 0.6 mg/dl (0.2-1.0); BUN 7 mg/dl (7-24); CARBON DIOXIDE 25 mmol/L (21-32); CHLORIDE 96 mmol/L (98-107); EST GLOM FILT AFRICAN AMERICAN > 60 ml/min; GLUCOSE 132 mg/dL (65-99); POTASSIUM 3.3 mmol/L (3.5-5.1); SGOT/AST 41 IU/L (3-35); SGPT/ALT 19 U/L (12-78); SODIUM 133 mmol/L (136-145)
[2016-05-23 08:00] VITALS: BP 118/56
[2016-05-23 12:00] VITALS: BP 126/89
[2016-05-23 16:00] VITALS: BP 126/67
[2016-05-23 20:00] VITALS: BP 118/72
[2016-05-24] VITALS: BP 120/63
[2016-05-24 06:46] LABS: HEMATOCRIT 29.9 % (37.0-47.0); HEMOGLOBIN 9.4 g/dl (12.0-16.0); MEAN CORPUSCULAR HGB 25.5 pg (27.0-31.0); MEAN CORPUSCULAR HGB CONC 31.4 g/dl (33.0-37.0); MEAN PLATELET VOLUME 9.6 fl (9.6-12.3); PLATELET COUNT AUTOMATED 331 10*3/uL (130-400); RED BLOOD COUNT 3.69 10*6/uL (4.10-5.10); RED CELL DISTRI WIDTH 17.9 % (0-14.5); WHITE BLOOD COUNT 17.9 10*3/uL (4.8-10.8)
[2016-05-24 07:04] LABS: ALBUMIN 2.4 gm/dl (3.1-4.5); ALKALINE PHOSPHATASE 122 U/L (45-117); BILIRUBIN, TOTAL 0.6 mg/dl (0.2-1.0); BUN 10 mg/dl (7-24); CARBON DIOXIDE 24 mmol/L (21-32); CHLORIDE 99 mmol/L (98-107); EST GLOM FILT AFRICAN AMERICAN > 60 ml/min; GLUCOSE 122 mg/dL (65-99); POTASSIUM 3.5 mmol/L (3.5-5.1); SGOT/AST 36 IU/L (3-35); SGPT/ALT 17 U/L (12-78); SODIUM 136 mmol/L (136-145)
[2016-05-24 07:07] LABS: BASOPHIL # 0.2 10*3/uL (0-0.1); BASOPHILS 1 % (0-1); LYMPHOCYTE # 0.4 10*3/uL (1.3-4.4); METAMYELOCYTES 1 % (0-0); MONOCYTE # 0.5 10*3/uL (0.1-1.0); NEUTROPHIL # 16.6 10*3/uL (2.3-7.9); NEUTROPHILS 93 % (47-73); TOTAL CELLS COUNTED 100 #CELLS
[2016-05-24 07:08] LABS: PLATELET SUFFICIENCY NORMAL (NORMAL)
[2016-05-24 08:00] VITALS: BP 136/64
[2016-05-24 12:00] VITALS: BP 104/66
[2016-05-24 12:19] LABS: ABG BASE EXCESS -0.1 mmol/L (-2.0-2.0); ABG CO2 CONTENT 23.6 mmol/L (23-27); ABG HCO3 22.7 mmol/l (22-26); ABG TEMPERATURE 97.9 F (98.0-99.0); ARTERIAL BLOOD GAS PH 7.477 (7.35-7.45)
[2016-05-24 13:22] LABS: CKMB 1.1 ng/ml (0.5-3.6); CPK 38 U/L (26-192); MAGNESIUM 1.9 mg/dL (1.5-2.1)
[2016-05-24 13:26] LABS: TROPONIN I < 0.015 ng/ml (<0.045)
[2016-05-24 16:00] VITALS: BP 107/50
[2016-05-24 20:00] VITALS: BP 120/63
[2016-05-25] VITALS: BP 103/56
[2016-05-25 07:09] LABS: BASO % 0.2 % (0.0-1.0); EOS # 0.1 10*3/uL (0.0-0.4); EOS % 0.9 % (1.0-4.0); HEMATOCRIT 29.5 % (37.0-47.0); HEMOGLOBIN 9.2 g/dl (12.0-16.0); IG # 0.1 10*3/uL (0.0-0.1); LYMPH # 0.7 10*3/uL (1.3-4.4); LYMPH % 5.5 % (27.0-41.0); MEAN CELL VOLUME 80.2 fl (81.0-99.0); MEAN CORPUSCULAR HGB CONC 31.2 g/dl (33.0-37.0); MONO # 0.6 10*3/uL (0.1-1.0); MONO % 5.3 % (3.0-9.0); NEUT # 10.5 10*3/uL (2.3-7.9); NEUT % 87.7 % (47.0-73.0); PLATELET COUNT AUTOMATED 350 10*3/uL (130-400); RED BLOOD COUNT 3.68 10*6/uL (4.10-5.10); RED CELL DISTRI WIDTH 18.2 % (0-14.5); WHITE BLOOD COUNT 11.9 10*3/uL (4.8-10.8)
[2016-05-25 07:23] LABS: BUN 15 mg/dl (7-24); CARBON DIOXIDE 23 mmol/L (21-32); CHLORIDE 102 mmol/L (98-107); EST GLOM FILT AFRICAN AMERICAN > 60 ml/min; GLUCOSE 135 mg/dL (65-99); POTASSIUM 3.3 mmol/L (3.5-5.1); SODIUM 137 mmol/L (136-145)
[2016-05-25 08:00] VITALS: BP 124/62
[2016-05-25 12:00] VITALS: BP 118/60; BP 144/50
[2016-05-25 16:00] VITALS: BP 106/48
[2016-05-25 20:00] VITALS: BP 121/55
[2016-05-26] VITALS: BP 117/58
[2016-05-26 08:00] VITALS: BP 152/76
[2016-05-26 09:52] LABS: ALBUMIN 2.3 gm/dl (3.1-4.5); ALKALINE PHOSPHATASE 88 U/L (45-117); BILIRUBIN, TOTAL 0.4 mg/dl (0.2-1.0); BUN 18 mg/dl (7-24); CARBON DIOXIDE 24 mmol/L (21-32); CHLORIDE 101 mmol/L (98-107); EST GLOM FILT AFRICAN AMERICAN > 60 ml/min; GLUCOSE 124 mg/dL (65-99); POTASSIUM 3.6 mmol/L (3.5-5.1); SGOT/AST 37 IU/L (3-35); SGPT/ALT 24 U/L (12-78); SODIUM 136 mmol/L (136-145); TOTAL PROTEIN 6.9 gm/dL (6.4-8.2)
[2016-05-26 12:00] VITALS: BP 159/69
[2016-05-26 16:00] VITALS: BP 146/76
[2016-05-26 20:00] VITALS: BP 150/65
[2016-05-27] VITALS: BP 143/73
[2016-05-27 07:23] LABS: BASO % 0.4 % (0.0-1.0); EOS # 0.3 10*3/uL (0.0-0.4); EOS % 3.2 % (1.0-4.0); HEMATOCRIT 30.6 % (37.0-47.0); HEMOGLOBIN 9.8 g/dl (12.0-16.0); LYMPH # 0.9 10*3/uL (1.3-4.4); LYMPH % 12.1 % (27.0-41.0); MEAN CELL VOLUME 78.1 fl (81.0-99.0); MEAN PLATELET VOLUME 9.4 fl (9.6-12.3); MONO # 0.6 10*3/uL (0.1-1.0); NEUT # 5.9 10*3/uL (2.3-7.9); NEUT % 75.9 % (47.0-73.0); PLATELET COUNT AUTOMATED 333 10*3/uL (130-400); RED BLOOD COUNT 3.92 10*6/uL (4.10-5.10); RED CELL DISTRI WIDTH 17.9 % (0-14.5); WHITE BLOOD COUNT 7.8 10*3/uL (4.8-10.8)
[2016-05-27 07:34] LABS: BUN 9 mg/dl (7-24); CARBON DIOXIDE 23 mmol/L (21-32); CHLORIDE 96 mmol/L (98-107); EST GLOM FILT AFRICAN AMERICAN > 60 ml/min; GLUCOSE 101 mg/dL (65-99); POTASSIUM 3.3 mmol/L (3.5-5.1); SODIUM 132 mmol/L (136-145)
[2016-05-27 08:00] VITALS: BP 156/80
[2016-05-27 12:00] VITALS: BP 129/87
[2016-05-27 16:00] VITALS: BP 138/73
[2016-05-27 20:00] VITALS: BP 134/74
[2016-05-28] VITALS: BP 114/80
[2016-05-28 06:02] LABS: HEMATOCRIT 35.6 % (37.0-47.0); HEMOGLOBIN 11.3 g/dl (12.0-16.0); MEAN CELL VOLUME 76.9 fl (81.0-99.0); MEAN CORPUSCULAR HGB 24.4 pg (27.0-31.0); MEAN CORPUSCULAR HGB CONC 31.7 g/dl (33.0-37.0); MEAN PLATELET VOLUME 8.8 fl (9.6-12.3); PLATELET COUNT AUTOMATED 401 10*3/uL (130-400); RED BLOOD COUNT 4.63 10*6/uL (4.10-5.10); RED CELL DISTRI WIDTH 17.6 % (0-14.5); WHITE BLOOD COUNT 8.5 10*3/uL (4.8-10.8)
[2016-05-28 06:36] LABS: BUN 13 mg/dl (7-24); CARBON DIOXIDE 23 mmol/L (21-32); CHLORIDE 94 mmol/L (98-107); EST GLOM FILT AFRICAN AMERICAN > 60 ml/min; GLUCOSE 179 mg/dL (65-99); POTASSIUM 3.3 mmol/L (3.5-5.1); SODIUM 129 mmol/L (136-145)
[2016-05-28 06:41] LABS: BASOPHIL # 0.2 10*3/uL (0-0.1); BASOPHILS 2 % (0-1); EOSINOPHIL # 0.2 10*3/uL (0-0.4); EOSINOPHILS 2 % (1-4); LYMPHOCYTE # 1.5 10*3/uL (1.3-4.4); METAMYELOCYTES 1 % (0-0); MONOCYTE # 0.9 10*3/uL (0.1-1.0); NEUTROPHIL # 5.7 10*3/uL (2.3-7.9); NEUTROPHILS 67 % (47-73); TOTAL CELLS COUNTED 100 #CELLS
[2016-05-28 06:42] LABS: HYPOCHROMIA SLIGHT; PLATELET SUFFICIENCY NORMAL (NORMAL)
[2016-05-28 08:00] VITALS: BP 134/78
[2016-05-28 12:00] VITALS: BP 112/63
[2016-05-28] MEDS ORDERED: OXYCODONE HCL5 MG PO (12:02)
[2016-05-28] MEDS ORDERED: LOPRESSOR25 MG PO (12:02)
[2016-05-28] MEDS ORDERED: DOCUSATE S100 MG/10 PO (12:02)
[2016-05-28] MEDS ORDERED: LEVOFLOXAC750 MG/150 IV (13:45)
== END 2016-05-28 15:09 | disposition other institution (70) | DRG 907 ==
LOC: ED 13:31 → 5E 14:22 → EDHOLD 14:22 → 5E 14:41
PROVIDERS: Emergency Medicine; Internal Medicine; Internal Medicine Cardiovascular Disease; Internal Medicine Hospice and Palliative Medicine; Surgery
PROC: 0WQF0ZZ Repair Abdominal Wall, Open Approach (ICD-10-PCS; principal; 2016-05-15)
PROC: 0DJ08ZZ Inspection of Upper Intestinal Tract, Via Natural or Artificial Opening Endoscopic (ICD-10-PCS; 2016-05-15)
PROC: BD11YZZ Fluoroscopy of Esophagus using Other Contrast (ICD-10-PCS; 2016-05-20)
DX: T81.31XA Disruption of external operation (surgical) wound, not elsewhere classified, initial encounter (principal); R65.11 Systemic inflammatory response syndrome (SIRS) of non-infectious origin with acute organ dysfunction; J96.01 Acute respiratory failure with hypoxia; I47.2 Ventricular tachycardia; J18.9 Pneumonia, unspecified organism; E43 Unspecified severe protein-calorie malnutrition; G89.18 Other acute postprocedural pain; E83.41 Hypermagnesemia; F32.9 Major depressive disorder, single episode, unspecified; D47.3 Essential (hemorrhagic) thrombocythemia; M54.9 Dorsalgia, unspecified; F41.1 Generalized anxiety disorder; F17.210 Nicotine dependence, cigarettes, uncomplicated; D64.9 Anemia, unspecified; E55.9 Vitamin D deficiency, unspecified; R25.1 Tremor, unspecified; G89.29 Other chronic pain; M54.2 Cervicalgia; K57.90 Diverticulosis of intestine, part unspecified, without perforation or abscess without bleeding; Y83.8 Other surgical procedures as the cause of abnormal reaction of the patient, or of later complication, without mention of misadventure at the time of the procedure; K44.9 Diaphragmatic hernia without obstruction or gangrene; E87.6 Hypokalemia; Z87.11 Personal history of peptic ulcer disease; Z71.6 Tobacco abuse counseling; Z68.22 Body mass index [BMI] 22.0-22.9, adult; Y92.89 Other specified places as the place of occurrence of the external cause; Z83.3 Family history of diabetes mellitus; Z82.0 Family history of epilepsy and other diseases of the nervous system

== ENCOUNTER 2016-10-16 11:25 | Emergency (ER) | payer OTHER ==
[~2016-10-16] VITALS: Ht 154.9 cm; Wt 54.4 kg
[2016-10-16 11:25] VITALS: BP 110/75
[~2016-10-16 11:25] MED LIST changes: +DOCUSATE S100 MG/10 PO; +LEVOFLOXAC750 MG/150 IV; +LOPRESSOR25 MG PO; +OXYCODONE HCL5 MG PO; +PERCOCET 325 MG1 TA5 PO; +VISTARIL50 MG PO
[2016-10-16 12:07] VITALS: BP 108/64
[2016-10-16 12:10] LABS: BASO # 0.1 10*3/uL (0.0-0.1); BASO % 0.4 % (0.0-1.0); EOS # 0.1 10*3/uL (0.0-0.4); EOS % 0.8 % (1.0-4.0); HEMATOCRIT 40.4 % (37.0-47.0); HEMOGLOBIN 13.1 g/dl (12.0-16.0); IG # 0.1 10*3/uL (0.0-0.1); LYMPH # 1.8 10*3/uL (1.3-4.4); LYMPH % 12.5 % (27.0-41.0); MEAN CELL VOLUME 86.3 fl (81.0-99.0); MEAN CORPUSCULAR HGB CONC 32.4 g/dl (33.0-37.0); MEAN PLATELET VOLUME 9.7 fl (9.6-12.3); MONO # 1.1 10*3/uL (0.1-1.0); MONO % 7.8 % (3.0-9.0); NEUT # 11.3 10*3/uL (2.3-7.9); PLATELET COUNT AUTOMATED 377 10*3/uL (130-400); RED BLOOD COUNT 4.68 10*6/uL (4.10-5.10); RED CELL DISTRI WIDTH 17.4 % (0-14.5); WHITE BLOOD COUNT 14.4 10*3/uL (4.8-10.8)
[2016-10-16 12:24] LABS: ALBUMIN 3.6 gm/dl (3.1-4.5); ALKALINE PHOSPHATASE 99 U/L (45-117); BILIRUBIN, TOTAL 0.5 mg/dl (0.2-1.0); BUN 18 mg/dl (7-24); CARBON DIOXIDE 26 mmol/L (21-32); CHLORIDE 95 mmol/L (98-107); EST GLOM FILT AFRICAN AMERICAN > 60 ml/min; GLUCOSE 102 mg/dL (65-99); POTASSIUM 3.2 mmol/L (3.5-5.1); SGOT/AST 70 IU/L (3-35); SGPT/ALT 21 U/L (12-78); SODIUM 133 mmol/L (136-145); TOTAL PROTEIN 7.8 gm/dL (6.4-8.2)
[2016-10-16 13:25] VITALS: BP 100/64
[2016-10-16 15:04] LABS: BILIRUBIN NEGATIVE (NEGATIVE); BLOOD NEGATIVE (NEGATIVE); CLARITY CLEAR (CLEAR); COLOR YELLOW (YELLOW); GLUCOSE NEGATIVE (NEGATIVE); KETONE NEGATIVE (NEGATIVE); LEUKO ESTERASE NEGATIVE (NEGATIVE); NITRITE NEGATIVE (NEGATIVE); PH 6.5 (5.0-9.0); PROTEIN TRACE (NEGATIVE); SPECIFIC GRAVITY <= 1.005 (1.005-1.030); UROBILINOGEN 0.2 E.U./dl (0.2-1.0)
[2016-10-16 15:16] LABS: URINE REFLEX COMMENT NO (NO); WBC 0-2 wbc/hpf (0-5)
== END 2016-10-16 23:33 | disposition admitted as inpatient to this hospital (09) ==
LOC: ED 11:25 → EDHOLD 15:38 → ED 15:38 → 5E 15:52 → EDHOLD 15:52 → 5E 15:52 → ED 23:33
PROVIDERS: Nurse Practitioner Family
DX: R10.31 Right lower quadrant pain (principal); R10.32 Left lower quadrant pain; E87.6 Hypokalemia; E87.1 Hypo-osmolality and hyponatremia; D47.3 Essential (hemorrhagic) thrombocythemia; F17.200 Nicotine dependence, unspecified, uncomplicated

== ENCOUNTER → 2016-12-10 | Outpatient (CLI) | payer OTHER ==
[2016-12-11 14:10] LABS: t-TRANSGLUTAMINASE (tTG) IGA <2 U/mL (0-3); t-TRANSGLUTAMINASE (tTG) IgG <2 U/mL (0-5)
[2016-12-11 16:08] LABS: ENDOMYSIAL ANTIBODY IgA Negative (Negative)
== END | disposition home or self-care (01) ==
LOC: LAB 11:38
PROVIDERS: Internal Medicine Gastroenterology
DX: R19.7 Diarrhea, unspecified (principal)

== ENCOUNTER 2017-03-02 08:20 | Emergency (ER) | payer MEDICARE, MEDICAID ==
[~2017-03-02] VITALS: Ht 154.9 cm; Wt 57.2 kg
[2017-03-02] MEDS ORDERED: NEURONTIN300 MG PO (10:25)
== END 2017-03-02 10:38 | disposition home or self-care (01) ==
LOC: ED 08:20
DX: S40.011A Contusion of right shoulder, initial encounter (principal); F17.200 Nicotine dependence, unspecified, uncomplicated; Z79.899 Other long term (current) drug therapy; X58.XXXA Exposure to other specified factors, initial encounter; Y93.89 Activity, other specified; Y92.89 Other specified places as the place of occurrence of the external cause; Y99.8 Other external cause status

== ENCOUNTER 2017-07-05 19:28 | Emergency (ER) | payer MEDICARE, MEDICAID ==
[~2017-07-05] VITALS: Ht 154.9 cm; Wt 56.2 kg
[2017-07-05] MEDS ORDERED: DICYCLOMINE HCL10 MG PO (19:35)
[2017-07-05] MEDS ORDERED: SERTRALINE HYD100 MG PO (19:35)
[2017-07-05] MEDS ORDERED: BUPROPION HCL150 M1 PO (19:36)
[2017-07-05 21:32] LABS: BASO # 0.1 10*3/uL (0.0-0.1); BASO % 0.4 % (0.0-1.0); EOS # 0.1 10*3/uL (0.0-0.4); EOS % 0.5 % (1.0-4.0); HEMATOCRIT 44.4 % (37.0-47.0); HEMOGLOBIN 15.1 g/dl (12.0-16.0); LYMPH # 2.5 10*3/uL (1.3-4.4); LYMPH % 16.7 % (27.0-41.0); MEAN CELL VOLUME 83.5 fl (81.0-99.0); MEAN CORPUSCULAR HGB 28.4 pg (27.0-31.0); MEAN PLATELET VOLUME 9.6 fl (9.6-12.3); MONO # 0.9 10*3/uL (0.1-1.0); MONO % 6.3 % (3.0-9.0); NEUT # 11.2 10*3/uL (2.3-7.9); NEUT % 75.2 % (47.0-73.0); PLATELET COUNT AUTOMATED 312 10*3/uL (130-400); RED BLOOD COUNT 5.32 10*6/uL (4.10-5.10); WHITE BLOOD COUNT 14.9 10*3/uL (4.8-10.8)
[2017-07-05 21:46] LABS: ALBUMIN 4.2 gm/dl (3.1-4.5); ALKALINE PHOSPHATASE 79 U/L (45-117); BUN 24 mg/dl (7-24); CHLORIDE 94 mmol/L (98-107); CREATININE 0.99 mg/dL (0.55-1.02); LIPASE 108 U/L (73-393); POTASSIUM 2.9 mmol/L (3.5-5.1); SGOT/AST 281 IU/L (3-35); SGPT/ALT 55 U/L (12-78); SODIUM 132 mmol/L (136-145); TOTAL PROTEIN 8.9 gm/dL (6.4-8.2)
[2017-07-05 21:48] LABS: TROPONIN I < 0.015 ng/ml (<0.045)
[2017-07-05 22:16] LABS: BILIRUBIN 1+ (NEGATIVE); BLOOD 2+ (NEGATIVE); CLARITY SL CLOUDY (CLEAR); COLOR YELLOW (YELLOW); GLUCOSE NEGATIVE (NEGATIVE); KETONE 1+ (NEGATIVE); LEUKO ESTERASE TRACE (NEGATIVE); NITRITE NEGATIVE (NEGATIVE); UROBILINOGEN 0.2 E.U./dl (0.2-1.0)
[2017-07-05 22:22] LABS: BACTERIA 2+
[2017-07-05] MEDS ORDERED: CIPRO500 MG PO (23:28)
[2017-07-05] MEDS ORDERED: ZOFRAN ODT4 MG SL (23:28)
== END 2017-07-05 23:48 | disposition home or self-care (01) ==
LOC: ED 19:28
PROVIDERS: Physician Assistant
DX: R11.2 Nausea with vomiting, unspecified (principal); R42 Dizziness and giddiness; R10.31 Right lower quadrant pain; R10.32 Left lower quadrant pain; F17.200 Nicotine dependence, unspecified, uncomplicated; Z79.899 Other long term (current) drug therapy

== ENCOUNTER → 2017-08-25 | Outpatient (CLI) | payer MEDICARE, MEDICAID ==
[~2017-08-25] MED LIST changes: +BUPROPION HCL150 M1 PO; +DICYCLOMINE HCL10 MG PO; +HYOSCYAMINE0.125 M2 PO; +K-TAB10 MEQ PO; +SERTRALINE HYD100 MG PO
== END | disposition home or self-care (01) ==
LOC: MAMMO 09:38
DX: Z12.31 Encounter for screening mammogram for malignant neoplasm of breast (principal); R10.2 Pelvic and perineal pain

== ENCOUNTER 2017-09-03 13:19 | Inpatient (IN) | payer MEDICARE, MEDICAID ==
[~2017-09-03] VITALS: Ht 154.9 cm; Wt 59.1 kg
--- NOTE | ~2017-09-03 | WRIGHTHP ---
[place], [place] PATIENT HISTORY AND PHYSICAL EXAM NAME: ADITHYA WILLIS [facility] #: [id number] UNIT #: [id number] ROOM: 407 DOCTOR: SKYLAR WANG MD BIRTHDATE: [birth year] DOS: 09/03/2017 HISTORY OF PRESENT ILLNESS: The patient is 62 years old, not known to me. The patient was admitted yesterday by Dr. Jay. The patient of Dr. Tabor, who presents with complaints of abdominal pain, which is chronic. The patient states that she has been treated with Bentyl, had an endoscopy about a year ago, sees Dr. Camargo. Denies having any chest pains or palpitations, not have any fever or chills, has chronic nausea, but does not have any diarrhea. The patient, because of abdominal pain and nausea, was not eating very well. When she arrived at the Emergency Room, she was found to have acute kidney injury and hypokalemia and was admitted. The patient denies having any fever, any chills, any chest pains or palpitations. PAST MEDICAL HISTORY: Significant for: 1. Last hospitalization in 04/2016 for abdominal pain, thought to be related to following wound dehiscence after James fundoplication. 2. Moderate cigarette smoker. 3. Chronic pain. 4. Major depression. MEDICATIONS: Medications, she is on, are gabapentin 600 t.i.d., omeprazole 40 daily, Bentyl 10 b.i.d., Wellbutrin 150 b.i.d., Zoloft 150 at bedtime, Restoril 15 at bedtime, gabapentin 600 q.i.d. SOCIAL HISTORY: Smoker of about half a pack of cigarettes a day. Denies using any alcohol. PHYSICAL EXAMINATION: GENERAL: She is awake and alert and oriented. VITAL SIGNS: Graphic trend shows that she is afebrile, blood pressure is 112/46, pulse of 70, respirations 18, temperature 98.3. LUNGS: Clear. HEART: Regular. ABDOMEN: Soft, some diffuse tenderness present. EXTREMITIES: Without any edema. ASSESSMENT AND PLAN: 1. Abdominal pain. We will rule out gallbladder dysfunction with a HIDA scan and ultrasound of the abdomen. 2. Chronic gastritis, already on proton pump inhibitors. Dr. Camargo has been consulted. 3. Hypokalemia with acute kidney injury. IV fluids were given. Potassium supplementation was given in the ER. Routine labs are pending today. 4. Chronic pain, already on multiple meds, are being continued. [place], [place] PATIENT HISTORY AND PHYSICAL EXAM [facility]: [facility] [id number] UNIT #: [id number] ROOM: [facility] DOCTOR: SKYLAR WANG MD BIRTHDATE: [birth year] SKYLAR WANG MD CM:HISPHYS:PATIENT HISTORY AND PHYSICAL EXAMINATION 9 01 SKYLAR WANG MD 09/04/17 1700 interface
--- NOTE | ~2017-09-03 | PR ---
[place], [place] PROGRESS NOTE [id number] UNIT #: [id number] ROOM: 407 DOCTOR: SKYLAR WANG MD BIRTHDATE: [birth year] DOS: SUBJECTIVE: The patient feels much better, does not have any new complaints. OBJECTIVE EXAMINATION: GENERAL: The patient is awake and alert and oriented. VITAL SIGNS: Graphic trend shows a pressure of 98/66, pulse of 18, respirations, 73, temperature 98.2. LUNGS: Clear. HEART: Regular. ABDOMEN: Soft, nontender. EXTREMITIES: Without any edema. ASSESSMENT AND PLAN: 1. Acute kidney injury, resolved. 2. Hypokalemia. Supplementation given and the labs are normal. 3. Chronic abdominal pain. Ultrasound of the gallbladder was negative. Liver enzymes, amylase, lipase were all normal. The patient was placed on antispasmodic Levsin and seems to be working. I suggested a HIDA scan as an outpatient. SKYLAR WANG MD CM:PNTRANS [id number] SKYLAR WANG MD 09/06/17 0119 interface
--- NOTE | ~2017-09-03 | DS ---
[place], [place] DISCHARGE SUMMARY NAME: ADITHYA WILLIS [facility] #: [id number] UNIT #: [id number] ROOM: 407 DOCTOR: SKYLAR WANG MD BIRTHDATE: [birth year] DOS: 09/05/2017 HOSPITAL COURSE: The patient is 62 years old, patient of Dr. Tipton, comes in with complaints of abdominal pain. The patient states that she has had abdominal pain for quite some time. Endoscopy was done a year ago by Dr. Camargo and has been on Bentyl. Because of continued pain, nausea and inability to eat, she came into the ER and she was found to have acute kidney injury and significant hypokalemia with a potassium of 3.1 and a GFR of 35. The patient was admitted. IV fluids were ordered. The patient was started on IV Protonix, Bentyl and potassium supplementation and the rest of the home meds were continued. The patient improved after Levsin was started. Amylase and lipase was normal. Liver enzymes are normal. Ultrasound of the gallbladder was negative. The patient is to have a HIDA scan, but unfortunately we were unable to do that during the weekend here, so she is advised to get it done as an outpatient. The patient this morning is stable and is not having any complaints at all. She ate a good meal and is not having any nausea and abdominal pain, so the plan is to discharge and follow with Dr. Tipton. Her medications remain the same as in admission. The only new prescription given was potassium 10 mEq daily for 10 days and Levsin 0.125 twice a day. SKYLAR WANG MD CM:DISCHARG [id number] SKYLAR WANG MD 09/05/17 1511 interface
[~2017-09-03 13:19] MED LIST changes: -HYOSCYAMINE0.125 M2 PO; -K-TAB10 MEQ PO
[2017-09-03 13:26] VITALS: BP 98/77
[2017-09-03 13:40] LABS: BASO # 0.1 10*3/uL (0.0-0.1); BASO % 0.4 % (0.0-1.0); EOS % 0.2 % (1.0-4.0); HEMATOCRIT 43.7 % (37.0-47.0); HEMOGLOBIN 14.5 g/dl (12.0-16.0); LYMPH # 1.6 10*3/uL (1.3-4.4); LYMPH % 12.5 % (27.0-41.0); MEAN CELL VOLUME 85.4 fl (81.0-99.0); MEAN CORPUSCULAR HGB 28.3 pg (27.0-31.0); MEAN CORPUSCULAR HGB CONC 33.2 g/dl (33.0-37.0); MEAN PLATELET VOLUME 9.3 fl (9.6-12.3); MONO # 0.9 10*3/uL (0.1-1.0); MONO % 7.4 % (3.0-9.0); NEUT # 9.8 10*3/uL (2.3-7.9); NEUT % 79.2 % (47.0-73.0); PLATELET COUNT AUTOMATED 282 10*3/uL (130-400); RED BLOOD COUNT 5.12 10*6/uL (4.10-5.10); RED CELL DISTRI WIDTH 15.5 % (0-14.5); WHITE BLOOD COUNT 12.4 10*3/uL (4.8-10.8)
[2017-09-03 13:55] LABS: ALBUMIN 4.2 gm/dl (3.1-4.5); CREATININE 1.51 mg/dL (0.55-1.02); POTASSIUM 3.1 mmol/L (3.5-5.1); TOTAL PROTEIN 8.8 gm/dL (6.4-8.2)
[2017-09-03 17:06] LABS: BILIRUBIN NEGATIVE (NEGATIVE); BLOOD 3+ (NEGATIVE); CLARITY CLEAR (CLEAR); COLOR YELLOW (YELLOW); GLUCOSE NEGATIVE (NEGATIVE); KETONE NEGATIVE (NEGATIVE); LEUKO ESTERASE NEGATIVE (NEGATIVE); NITRITE NEGATIVE (NEGATIVE); SPECIFIC GRAVITY 1.025 (1.005-1.030)
[2017-09-03 17:15] LABS: MUCOUS TRACE
[2017-09-03 17:40] VITALS: BP 123/84
[2017-09-03 18:00] VITALS: BP 123/84
[2017-09-03 20:00] VITALS: BP 111/53
[2017-09-04] VITALS: BP 112/46; BP 99/55
[2017-09-04 07:13] LABS: BASO # 0.1 10*3/uL (0.0-0.1); BASO % 0.7 % (0.0-1.0); EOS # 0.1 10*3/uL (0.0-0.4); EOS % 1.7 % (1.0-4.0); LYMPH # 1.9 10*3/uL (1.3-4.4); LYMPH % 26.9 % (27.0-41.0); MEAN CORPUSCULAR HGB 28.3 pg (27.0-31.0); MEAN CORPUSCULAR HGB CONC 31.5 g/dl (33.0-37.0); MEAN PLATELET VOLUME 9.7 fl (9.6-12.3); MONO # 0.6 10*3/uL (0.1-1.0); MONO % 9.2 % (3.0-9.0); NEUT # 4.2 10*3/uL (2.3-7.9); NEUT % 61.1 % (47.0-73.0); RED BLOOD COUNT 4.07 10*6/uL (4.10-5.10); RED CELL DISTRI WIDTH 15.5 % (0-14.5); WHITE BLOOD COUNT 6.9 10*3/uL (4.8-10.8)
[2017-09-04 07:18] LABS: HEMATOCRIT 36.5 % (37.0-47.0); HEMOGLOBIN 11.5 g/dl (12.0-16.0); MEAN CELL VOLUME 89.7 fl (81.0-99.0); PLATELET COUNT AUTOMATED 171 10*3/uL (130-400)
[2017-09-04 07:23] LABS: BUN 20 mg/dl (7-24); CHLORIDE 104 mmol/L (98-107); CREATININE 0.96 mg/dL (0.55-1.02); POTASSIUM 3.2 mmol/L (3.5-5.1); SODIUM 140 mmol/L (136-145)
[2017-09-04 08:00] VITALS: BP 106/64; BP 138/82
[2017-09-04 08:07] LABS: ALBUMIN 3.1 gm/dl (3.1-4.5); TOTAL PROTEIN 6.7 gm/dL (6.4-8.2)
[2017-09-04 08:09] LABS: BILIRUBIN, DIRECT 0.2 mg/dL (0.0-0.2)
[2017-09-04 12:00] VITALS: BP 102/60
[2017-09-04 14:00] VITALS: BP 102/60
[2017-09-04 20:00] VITALS: BP 99/55
[2017-09-05] VITALS: BP 130/61; BP 98/66
[2017-09-05 06:42] LABS: BASO % 0.6 % (0.0-1.0); EOS # 0.1 10*3/uL (0.0-0.4); EOS % 1.8 % (1.0-4.0); HEMATOCRIT 34.3 % (37.0-47.0); HEMOGLOBIN 10.5 g/dl (12.0-16.0); LYMPH # 1.3 10*3/uL (1.3-4.4); LYMPH % 19.7 % (27.0-41.0); MEAN CELL VOLUME 91.7 fl (81.0-99.0); MEAN CORPUSCULAR HGB 28.1 pg (27.0-31.0); MEAN CORPUSCULAR HGB CONC 30.6 g/dl (33.0-37.0); MEAN PLATELET VOLUME 9.9 fl (9.6-12.3); MONO # 0.5 10*3/uL (0.1-1.0); MONO % 7.2 % (3.0-9.0); NEUT # 4.7 10*3/uL (2.3-7.9); NEUT % 70.4 % (47.0-73.0); PLATELET COUNT AUTOMATED 150 10*3/uL (130-400); RED BLOOD COUNT 3.74 10*6/uL (4.10-5.10); RED CELL DISTRI WIDTH 15.1 % (0-14.5); WHITE BLOOD COUNT 6.7 10*3/uL (4.8-10.8)
[2017-09-05 06:55] LABS: BUN 21 mg/dl (7-24); CHLORIDE 115 mmol/L (98-107); CREATININE 0.94 mg/dL (0.55-1.02); POTASSIUM 3.9 mmol/L (3.5-5.1); SODIUM 147 mmol/L (136-145)
[2017-09-05] MEDS ORDERED: HYOSCYAMINE0.125 M2 PO (07:25)
[2017-09-05] MEDS ORDERED: K-TAB10 MEQ PO (07:25)
== END 2017-09-05 08:45 | disposition home or self-care (01) | DRG 640 ==
LOC: ED 13:19 → EDHOLD 17:22 → 4E 17:22
PROVIDERS: Internal Medicine; Internal Medicine Gastroenterology; Nurse Practitioner Family
DX: E87.6 Hypokalemia (principal); N17.0 Acute kidney failure with tubular necrosis; R65.10 Systemic inflammatory response syndrome (SIRS) of non-infectious origin without acute organ dysfunction; G89.29 Other chronic pain; M54.9 Dorsalgia, unspecified; M54.2 Cervicalgia; K29.50 Unspecified chronic gastritis without bleeding; R10.9 Unspecified abdominal pain; Z66 Do not resuscitate; F17.210 Nicotine dependence, cigarettes, uncomplicated; F32.9 Major depressive disorder, single episode, unspecified; Z51.5 Encounter for palliative care; F41.1 Generalized anxiety disorder; Z87.11 Personal history of peptic ulcer disease; Z83.3 Family history of diabetes mellitus; Z82.0 Family history of epilepsy and other diseases of the nervous system; Z82.3 Family history of stroke; Z82.49 Family history of ischemic heart disease and other diseases of the circulatory system

== ENCOUNTER 2018-02-01 08:57 | Inpatient (IN) | payer MEDICARE, MEDICAID ==
[2018-02-01] VITALS (7 sets, daily range): BP systolic 165–188; BP diastolic 84–116
[~2018-02-01] VITALS: Ht 154.9 cm; Wt 61.0 kg
--- NOTE | ~2018-02-01 | O ---
[place], [place] OPERATIVE NOTE [id number] UNIT #: [id number] ROOM: 515 DOCTOR: MAHIN PRUITTPAXTON BIRTHDATE: [birth year] DOS: 02/02/2018 HISTORY OF PRESENT ILLNESS: This is a 62-year-old patient who presented with chief complaint of epigastric distress, nausea, vomiting and eventually she had hematemesis and apparently she is carrying a history of nicotine and alcohol dependency and she is reluctant about presenting the history. She has been, however, on omeprazole 40 mg daily and still she has been symptomatic. PROCEDURE: Today's procedure part of investigation is panendoscopy plus biopsy. PREMEDICATION: Propofol. SCOPE: Olympus forward-viewing gastroscope Q10 video. REPORT: After putting the patient in left lateral position and application of lubricant to the scope, the scope was introduced. Thereafter, under direct visualization, I advanced the length of esophagus without difficulty. Esophagus cervicothoracic distally carefully examined. There is distal esophageal ulceration secondary to reflux, there is a small ulceration at distal esophagus at 3 o'clock position signifying presence of Leslie-Mars insult. Gastric pouch was entered. A 5 cm hiatal hernia with incomplete James fundoplication repair was noticed. Gastric pouch was entered. Gastritis seen along the mid antrum area, there is evidence of previous ulcerations and healing or suturing in this area, which has formation at the previous scar or ulceration or bleeding site. Antrum was approached. Gastritis was seen. Pyloric , which is a little bit angulated was entered and patency of duodenal bulb, second and third part was assured. There was no obstruction. The patient extubated after antral biopsy and after GI reflexion of the scope to confirm large hiatal hernia as well as incomplete James fundoplication. Distal esophageal ulcers were photographed. There was no evidence of esophageal varicosity. The patient extubated, tolerated the procedure well. IMPRESSION: Distal esophageal ulceration, small bowel Leslie-Mars tear evidenced, hiatal hernia, incomplete James fundoplication repair, gastritis. PLAN AND DISCUSSION: The etiology for her nausea, vomiting could be multifactorial and among which is Nicotine and alcohol and the other hand, she is at the present time of active UTI with greater than 100,000 bacteria on board As far as abdominal pain is concerned abdominal pain is concerned. The patient with a history of diverticulosis and her pain is chronic in that area and I have reviewed her CT scan, there is no evidence of pathology reported in liver and spleen and pancreas, gallbladder was reported to be benign. PLAN AND DISCUSSION: We are going to be going to continue with PPI 40 mg as well as sucralfate 1 gram 2 hours before meals and at bedtime antireflux measures with elevation of the head of the bed about 10 inches. Gaviscon as antacid of choice that she can use 1 at bedtime and 1 p.r.n. for breakthrough dyspepsia to stop smoking to abstain from alcoholic beverages and to have followup routinely with GI office and with us and antibiotic management for UTI and if she continues with her dyspepsia and reflux issues, I would consider [place], [place] OPERATIVE NOTE NAME: ADITHYA WILLIS UNIT #: [id number] ROOM: [facility] DOCTOR: PAXTON STOCKTON MD BIRTHDATE: [birth year] prokinetic in her case of 5 mg Reglan daily to be instituted an hour before her dinner at times and clinical reassessment. Her LFTs were reviewed, which is benign. Her lipase was benign and her urine was heavy gram-negative bacilli. Cultures are pending. Clinical reassessment. PAXTON STOCKTON MD CM:OPRECORD:OPERATIVE NOTE [phone] PAXTON STOCKTON MD 02/02/18 1834 interface
--- NOTE | ~2018-02-01 | PR ---
[place], [place] PROGRESS NOTE NAME: ADITHYA WILLIS [facility] #: [id number] UNIT #: [id number] ROOM: 515 DOCTOR: SKYLAR WANG MD BIRTHDATE: [birth year] DOS: SUBJECTIVE: The patient is doing better, does not have any new complaints. She still has some minimal abdominal discomfort. OBJECTIVE: VITAL SIGNS: Graphic trend shows a pressure 98/59, pulse of 67, respirations 18, temperature 98.4. LUNGS: Clear. HEART: Regular. ABDOMEN: Soft, some diffuse tenderness. EXTREMITIES: Without any edema. LABORATORY DATA: Potassium is 2.8. White cell count is normal at 6.5, hemoglobin 11.8. ASSESSMENT AND PLAN: 1. The patient with coffee-ground emesis. Endoscopy showing Leslie-Mars tear and gastritis. The patient is placed on medications. Appreciate Dr. Camargo's input. 2. Hypokalemia. Supplementation will be ordered. 3. Urine culture showing heavy gram-negative bacteria. Awaiting sensitivities. We will add Rocephin. SKYLAR WANG MD CM:PNTRANS [id number] SKYLAR WANG MD 02/03/18 1444 interface
--- NOTE | ~2018-02-01 | PR ---
[place], [place] PROGRESS NOTE NAME: ADITHYA WILLIS [facility] #: [id number] UNIT #: [id number] ROOM: 515 DOCTOR: SKYLAR WANG MD BIRTHDATE: [birth year] DOS: SUBJECTIVE: The patient is doing fine without any complaints. Her nausea and emesis and abdominal pain are much improved. OBJECTIVE: VITAL SIGNS: Graphic trend shows a pressure of 115/61, pulse of 85, respirations 18, temperature 97.4. LUNGS: Clear. HEART: Regular. ABDOMEN: Soft, nontender. EXTREMITIES: Without any edema. ASSESSMENT AND PLAN: 1. Severe hypokalemia, supplemented, this morning levels were normal. 2. Acute gastritis, alcoholic with coffee-ground emesis, status post endoscopy, stable. The plan is to discharge her to home today. Followup with the PCP. SKYLAR WANG MD CM:PNTRANS [id number] SKYLAR WANG MD 02/04/18 1745 interface
--- NOTE | ~2018-02-01 | DS ---
[place], [place] DISCHARGE SUMMARY NAME: ADITHYA WILLIS [facility] #: [id number] UNIT #: [id number] ROOM: 515 DOCTOR: SKYLAR WANG MD BIRTHDATE: [birth year] DOS: 02/04/2018 DIAGNOSES: 1. Alcoholic gastritis. 2. Chronic pain. 3. Chronic diverticulosis without any evidence of acute infection. 4. Major depression. 5. History of alcoholism, has been dry for 20 years and then she had a beer before the admission when she came in with coffee-ground emesis. 6. Moderate cigarette smoker. 7. History of James fundoplication. MEDICATIONS: She is going to be on are the same as home meds. The only change made was Protonix, was started 40 mg twice a day. Ceftin 250 twice a day for 5 days. HOSPITAL COURSE: This patient is 62 years old, known to me from a previous admission, comes in with complaints of abdominal pain and coffee-ground emesis. She had some beer before she got admitted. After admission, the patient was started on IV fluids. Urine culture was sent and it grew Klebsiella pneumoniae for which she was placed on Ceftin. The patient was taken for endoscopy because of continued pain. Endoscopy showed gastritis. Please review Dr. Camargo's notes for further detail. The patient has continued to improve without any new problems. Potassium level was extremely low at 2.8. IV potassium was given. This morning labs are okay. The patient is stable and the plan is to discharge her to home today to follow up as an outpatient. SKYLAR WANG MD CM:DISCHARG [id number] SKYLAR WANG MD 02/04/18 1353 interface
--- NOTE | ~2018-02-01 | WRIGHTHP ---
[place], [place] PATIENT HISTORY AND PHYSICAL EXAM NAME: ADITHYA WILLIS [facility] #: [id number] UNIT #: [id number] ROOM: 515 DOCTOR: SKYLAR WANG MD BIRTHDATE: [birth year] DOS: HISTORY OF PRESENT ILLNESS: This patient is 62 years old. The patient comes in with nausea and emesis, while in the Emergency Room, she had a large coffee-ground emesis and was admitted. She denies having any fever or chills, does not have any chest pains or palpitations. The patient states that she avoids taking Motrin, but she has had chronic pain and Tylenol has not been working very well, she had occasionally taken some Motrin. She also had a beer 2 days ago, which she has avoided and been dry for about 20 years. She has history of alcoholism. PAST MEDICAL HISTORY: Significant for 1. History of alcoholism. 2. Chronic pain. 3. Moderate cigarette smoker. 4. Major depression. 5. History of wound dehiscence for James fundoplication. MEDICATIONS: That she is currently on are Wellbutrin 150 b.i.d., Bentyl 10 b.i.d., gabapentin 600 q.i.d., omeprazole 40 daily, sertraline 50 at bedtime, temazepam 15 at bedtime. SOCIAL HISTORY: Smoker. She has avoided alcohol for 20 years, but had a beer 2 days ago because of pain. PHYSICAL EXAMINATION: VITAL SIGNS: Graphic trend shows a pressure of 113/68, pulse of 102, respirations 18, temperature 98.9. LUNGS: Clear. HEART: Regular. ABDOMEN: Obese, soft, some diffuse tenderness present. EXTREMITIES: Without any edema. LABORATORY DATA: Amylase and lipase were normal. CT of the abdomen and pelvis was unremarkable. ASSESSMENT AND PLAN: 1. The patient with most likely alcoholic gastritis causing coffee-ground emesis. Dr. Camargo has been consulted. IV Protonix ordered and IV fluids have been ordered. Keep n.p.o. and should have an endoscopy today. 2. Chronic abdominal pain of unknown etiology. The patient is on multiple medications from her PCP, which are being continued. 3. Elevated white cell count, possibly stress effect. We will repeat a CBC. Urinalysis showed 4+ bacteria. Urine culture will be sent. [place], [place] PATIENT HISTORY AND PHYSICAL EXAM NAME: ADITHYA WILLIS UNIT #: [id number] ROOM: [facility] DOCTOR: SKYLAR WANG MD BIRTHDATE: [birth year] SKYLAR WANG MD CM:HISPHYS:PATIENT HISTORY AND PHYSICAL EXAMINATION 1 7 SKYLAR WANG MD 02/02/18926 interface
--- NOTE | ~2018-02-01 | CON ---
[place], [place] REPORT OF CONSULTATION NAME: ADITHYA WILLIS [facility] #: [id number] UNIT #: [id number] ROOM: 515 DOCTOR: MAHIN PRUITTBRANDINAMAYA BIRTHDATE: [birth year] DOS: 02/02/2018 GASTROENDOSCOPIC CONSULTATION REPORT HISTORY OF PRESENT ILLNESS: This is a 62-year-old patient, who has presented with multiple medical problems, among which has nausea, vomiting, and eventually hematemesis and that is why ____ involved. The patient also has been complaining of nonspecific abdominal pain that had to be investigated. Initially, her white blood cell was 18,000 with H and H of 15 and 46, neutrophils of 89. INR was 1.0. Comprehensive metabolic panel: BUN and creatinine are 14 and 1.48. GFR was 44. Potassium was 3.1. Electrolytes otherwise balanced. Lipase was normal. Alcohol level was normal. Urinalysis showed cloudy urine, 4+ bacteria. CT scan of the abdomen and pelvis was done, no acute process, no obstruction, herniated bowel loops or any inflammatory process, non-colonic diverticulosis without diverticulitis on board. Amylase and lipase was reassessed, which was unremarkable. PAST MEDICAL HISTORY: Nicotine dependency, history of alcoholism; however, she tries to deny chronic pain syndrome, major depression. PAST SURGICAL HISTORY: Status post James fundoplication, carpal tunnel repair, history of gastric bezoar removal, rotator cuff repair, tonsillectomy, and teeth extractions. MEDICATIONS: Medication list reviewed. Devoid of antiplatelets and anticoagulants. ALLERGIES: No known medication. SOCIAL HISTORY: She is a smoker and alcohol consumer. FAMILY HISTORY: Noncontributory except diabetes and parkinsonism in family members. REVIEW OF SYSTEMS: HEENT: In general, she denies double vision, blurred vision. RESPIRATORY: She denies acute shortness of breath. CARDIOVASCULAR: She denies acute chest pain except subxiphoid distress and nausea. DIGESTIVE SYSTEM: No hematochezia, hematemesis finally after numerous emesis. PHYSICAL EXAMINATION: VITAL SIGNS: Stable and nontoxic patient otherwise physically. HEENT: Within normal limits. NECK: Supple. No thyromegaly. No cervical lymphadenopathy. CHEST: Symmetric anatomy, equal expansion, and COPD pattern. No wheezes anteriorly. HEART: Normal sinus rhythm. No gallop. No murmur. ABDOMEN: Nonspecific tenderness in lower abdomen bilaterally. Bowel sounds present. [place], [place] REPORT OF CONSULTATION NAME: ADITHYA WILLIS UNIT #: [id number] ROOM: [facility] DOCTOR: PAXTON STOCKTON MD BIRTHDATE: [birth year] EXTREMITIES: There is no evidence of pedal edema or ulcerations. NEUROLOGIC: She is fully alert, oriented to time, place, and person. IMPRESSION: Nausea and vomiting, most likely secondary to urinary tract infection as underlying problem. Leukocytosis of 18,000, multifactorial, ____ only sepsis also could be secondary to recurrent emesis, which is a stimulating; white blood cell elevation and other adjunctive diagnoses are diverticulosis chronically is known and other issues that there has been a history of gastric bezoar and concern is if she has gastroparesis as a result leading to nausea with delayed gastric emptying. PLAN AND DISCUSSION: Other adjunctive diagnoses as outlined above. She is status post James fundoplication. As far as surgeries on the stomach concerned, on the other hand, I see that in her medication list she is on dicyclomine twice a day. She is carrying some element of irregular bowel habits with dominance on episodes of diarrhea most often. The patient is already on omeprazole 40 mg daily, which is reducing the chance of her having peptic ulcer disease and otherwise as dictated in past medical and surgical history, we are going to proceed with panendoscopy. Thank you very much indeed. PAXTON STOCKTON MD CM:CONSTR:REPORT OF CONSULTATION 1703 02/03/18 0433 interface
[~2018-02-01 08:57] MED LIST changes: +HYOSCYAMINE0.125 M2 PO; +K-TAB10 MEQ PO
[2018-02-01 09:42] LABS: BASO # 0.1 10*3/uL (0.0-0.1); BASO % 0.4 % (0.0-1.0); EOS % 0.1 % (1.0-4.0); HEMATOCRIT 46.8 % (37.0-47.0); HEMOGLOBIN 15.6 g/dl (12.0-16.0); LYMPH # 1.1 10*3/uL (1.3-4.4); LYMPH % 5.9 % (27.0-41.0); MEAN CELL VOLUME 86.8 fl (81.0-99.0); MEAN CORPUSCULAR HGB 28.9 pg (27.0-31.0); MEAN CORPUSCULAR HGB CONC 33.3 g/dl (33.0-37.0); MEAN PLATELET VOLUME 9.8 fl (9.6-12.3); MONO # 0.6 10*3/uL (0.1-1.0); MONO % 3.4 % (3.0-9.0); NEUT # 16.9 10*3/uL (2.3-7.9); NEUT % 89.7 % (47.0-73.0); PLATELET COUNT AUTOMATED 332 10*3/uL (130-400); RED BLOOD COUNT 5.39 10*6/uL (4.10-5.10); RED CELL DISTRI WIDTH 14.5 % (0-14.5); WHITE BLOOD COUNT 18.8 10*3/uL (4.8-10.8)
[2018-02-01 09:48] LABS: INTERNATIONAL NORM RATIO 1.1 (2.0-3.5)
[2018-02-01 09:59] LABS: ALBUMIN 4.4 gm/dl (3.1-4.5); ALKALINE PHOSPHATASE 82 U/L (45-117); BUN 14 mg/dl (7-24); CHLORIDE 98 mmol/L (98-107); CREATININE 1.48 mg/dL (0.55-1.02); LIPASE 53 U/L (73-393); POTASSIUM 3.1 mmol/L (3.5-5.1); SGOT/AST 16 IU/L (3-35); SGPT/ALT 18 U/L (12-78); SODIUM 139 mmol/L (136-145); TOTAL PROTEIN 8.6 gm/dL (6.4-8.2)
[2018-02-01 10:00] LABS: ETHYL ALCOHOL < 3.0 mg/dl (<3)
[2018-02-01 11:17] LABS: BILIRUBIN NEGATIVE (NEGATIVE); BLOOD NEGATIVE (NEGATIVE); CLARITY CLOUDY (CLEAR); COLOR YELLOW (YELLOW); GLUCOSE NEGATIVE (NEGATIVE); KETONE 1+ (NEGATIVE); LEUKO ESTERASE TRACE (NEGATIVE); NITRITE NEGATIVE (NEGATIVE); UROBILINOGEN 0.2 E.U./dl (0.2-1.0)
[2018-02-01 11:25] LABS: BACTERIA 4+; WBC 16-20 wbc/hpf (0-5)
--- NOTE | 2018-02-01 13:45 | NUR ---
PATIENT NOTED TO HAVE TRES RED STOOL IN BED [place], UNABLE TO COLLECT SAMPLE BECAUSE SPECIMEN WAS CONTAMINATED WITH URINE. DR YOST CALLED AND MADE AWARE. WILL CONINUE TO MONITOR.
[2018-02-01] MEDS ORDERED: NICODERM CQ1 EAC1 T (13:57)
--- NOTE | 2018-02-01 15:04 | NUR ---
PATIENT REQUESTING MEDICATION FOR NAUSEA. ZOFRAN ADMINISTERED PRESCRIBED. WILL MONITOR FOR EFFECTIVENESS.
[2018-02-01 15:06] LABS: LIPASE 74 U/L (73-393)
--- NOTE | 2018-02-01 15:37 | NUR ---
DR STOCKTON CALLED FOR NEW CONSULT- NEW ORDERS RECEIVED- NPO AFTER MIDNIGHT FOR EGD TOMORROW.
--- NOTE | 2018-02-01 16:04 | NUR ---
PATIENT STATES THAT NAUSEA IS A LITTLE BETTER AFTER RECEIVING ZOFRAN BUT SHE STILL DOES NOT WANT TO EAT OR DRINK ANYTHING AT THIS TIME. WILL CONTINUE TO MONITOR.
--- NOTE | 2018-02-01 17:30 | NUR ---
PATIENT REQUESTING MEDICATION FOR NAUSEA. PROTONIX ADMINISTERED PRESCRIBED. WILL MONITOR FOR EFFECTIVENESS.
--- NOTE | 2018-02-01 18:00 | NUR ---
PATIENT STATES THAT NAUSEA IS SOMEWHAT BETTER AFTER RECEIVING THE PROTONIX. WILL CONTINUE TO MONITOR.
--- NOTE | 2018-02-01 20:16 | NUR ---
DR WANG CALLED WITH PATIENT INCREASED BP 180/100- NEW ORDERS RECEIVED- CLONIDINE 0.3 MG PATCH Q WEEK. WILL CONTINUE TO MONITOR.
--- NOTE | 2018-02-01 23:57 | NUR ---
PATIENT IS SLEEPING WITH EASY AND REGULAR RESPERS ON ROOM AIR. AROUSES EASILY FOR ASSESSMENT. ASSESSMENT IS COMPLETE WITH NO C/O OR S/S OF DISTRESS NOTED. BED IS LOW AND LOCKED WITH CALL LIGHT IN REACH. SEE SHIFT ASSESSMENT.
[2018-02-02] VITALS (9 sets, daily range): BP systolic 106–180; BP diastolic 68–94
--- NOTE | 2018-02-02 09:00 | NUR ---
[employer] Worker in to talk to patient. Patient states lives at home alone with her family checking in on her. There are 20 steps in the home. Physician: Dr. Jorge Tipton Pharmacy: [facility] Home health services: none Patient's level of ADLs: INDEPENDENT Patient has working utilities: yes DME: none Follow-up physician's appointment after d/c: she prefers to make her own follow up appt after discharge Does patient want to access PORTAL?: no Discharge plan discussed with patient. She lives at home alone with her family checking in on her. She is independent in her ADLs and ambulation. Discussed home health care services and she denies any home needs at this time. When medically stable she will be discharged to home. JAGJIT DURON
--- NOTE | 2018-02-02 17:41 | NUR ---
PATIENT CURRENTLY OFF FLOOR FOR SURGERY.
--- NOTE | 2018-02-02 19:24 | NUR ---
CALLED DR WANG ABOUT PATIENT'S BLOOD PRESSURE. ORDERED CLONIDINE 0.1MG.
--- NOTE | 2018-02-02 19:56 | NUR ---
PATIENT IS AAOX3 RESTING IN BED WITH EASY AND REGULAR RESPERS ON ROOM AIR. ASSESSMENT IS COMPLETE PATIENT IS C/O ABDOMINAL PAIN AND NAUSEA AT THIS TIME. BED IS LOW AND LOCKED WITH CALL LIGHT IN REACH. SEE SHIFT ASSESSMENT.
--- NOTE | 2018-02-02 21:52 | NUR ---
2200 MEDICATIONS GIVEN AT THIS TIME, WHILE ADMINISTERING MEDICATIONS PATIENT DROPPED MED CUP ON FLOOR AFTER TAKING BENTYL AND RESTORIL. ZOLOFT, NEURONTIN, AND CARAFTE WASTED IN PIXIS AND PATIENT PROVIDED MEDS. PATIENT TOLERATED WELL, CALL LIGHT IS WITHIN REACH.
[2018-02-03] VITALS: BP 150/76
[2018-02-03 07:03] LABS: BASO % 0.6 % (0.0-1.0); EOS # 0.1 10*3/uL (0.0-0.4); EOS % 1.1 % (1.0-4.0); LYMPH # 1.5 10*3/uL (1.3-4.4); LYMPH % 23.6 % (27.0-41.0); MEAN CORPUSCULAR HGB 28.7 pg (27.0-31.0); MEAN CORPUSCULAR HGB CONC 31.9 g/dl (33.0-37.0); MONO # 0.5 10*3/uL (0.1-1.0); MONO % 6.9 % (3.0-9.0); NEUT # 4.4 10*3/uL (2.3-7.9); NEUT % 67.6 % (47.0-73.0); RED BLOOD COUNT 4.11 10*6/uL (4.10-5.10); RED CELL DISTRI WIDTH 13.8 % (0-14.5); WHITE BLOOD COUNT 6.5 10*3/uL (4.8-10.8)
[2018-02-03 07:04] LABS: HEMOGLOBIN 11.8 g/dl (12.0-16.0); PLATELET COUNT AUTOMATED 183 10*3/uL (130-400)
[2018-02-03 07:34] LABS: BUN 16 mg/dl (7-24); CHLORIDE 105 mmol/L (98-107); CREATININE 0.86 mg/dL (0.55-1.02); POTASSIUM 2.8 mmol/L (3.5-5.1); SODIUM 138 mmol/L (136-145)
[2018-02-03 08:00] VITALS: BP 98/59
--- NOTE | 2018-02-03 09:00 | NUR ---
Scaffold Erector in to see patient. No new needs or request at this time. She denies any home needs. Dr. Hays would like to keep one more day as her potassium is low and will be supplemented. When medically stable she will be discharged to home.
[2018-02-03 12:00] VITALS: BP 124/71
[2018-02-03 16:00] VITALS: BP 99/53
--- NOTE | 2018-02-03 17:15 | NUR ---
TYLENOL FOR GENERALIZED DISCOMFORTS AND ZOFRAN FOR NAUSEA
--- NOTE | 2018-02-03 18:04 | NUR ---
TYLENOL AND ZOFRAN ARE EFFECTIVE
[2018-02-03 20:00] VITALS: BP 100/57
[2018-02-04] VITALS: BP 109/48
[2018-02-04 06:46] LABS: BUN 13 mg/dl (7-24); CHLORIDE 113 mmol/L (98-107); POTASSIUM 3.6 mmol/L (3.5-5.1); SODIUM 142 mmol/L (136-145)
[2018-02-04 08:00] VITALS: BP 115/61
[2018-02-04] MEDS ORDERED: DICYCLOMINE HCL10 MG PO (09:14)
[2018-02-04] MEDS ORDERED: PROTONIX40 MG PO (09:14)
[2018-02-04] MEDS ORDERED: CEFUROXIME AXE250 MG PO (09:18)
--- NOTE | 2018-02-04 10:18 | NUR ---
Discharge instructions reviewed with patient/family. Patient receptive and verbalizes understanding. Follow-up care arranged WITH PRIMARY CARE PHYSICIAN. Written instructions given PATIENT. HEPLOCK REMOVED, DISCHARGE SUMMARY AND CLOTHING CHECKLIST COMPLETED. PATIENT TAKEN OFF THE FLOOR VIA WHEELCHAIR. TALYA BHANDARI
== END 2018-02-04 10:18 | disposition home or self-care (01) | DRG 689 ==
LOC: ED 08:57 → EDHOLD 12:17 → 5E 12:17
PROVIDERS: Nurse Practitioner Family; ADMIT Internal Medicine
PROC: 0DB68ZX Excision of Stomach, Via Natural or Artificial Opening Endoscopic, Diagnostic (ICD-10-PCS; principal; 2018-02-02)
DX: N39.0 Urinary tract infection, site not specified (principal); K29.21 Alcoholic gastritis with bleeding; K22.6 Gastro-esophageal laceration-hemorrhage syndrome; K22.11 Ulcer of esophagus with bleeding; K57.90 Diverticulosis of intestine, part unspecified, without perforation or abscess without bleeding; K44.9 Diaphragmatic hernia without obstruction or gangrene; B96.1 Klebsiella pneumoniae [K. pneumoniae] as the cause of diseases classified elsewhere; F17.210 Nicotine dependence, cigarettes, uncomplicated; F32.9 Major depressive disorder, single episode, unspecified; F10.20 Alcohol dependence, uncomplicated; G89.29 Other chronic pain; E87.6 Hypokalemia; Z83.3 Family history of diabetes mellitus; Z82.0 Family history of epilepsy and other diseases of the nervous system; Z82.49 Family history of ischemic heart disease and other diseases of the circulatory system; Z86.73 Personal history of transient ischemic attack (TIA), and cerebral infarction without residual deficits; Z79.899 Other long term (current) drug therapy

== ENCOUNTER 2018-10-07 10:23 | Inpatient (IN) | payer MEDICARE, MEDICAID ==
[2018-10-07] VITALS (7 sets, daily range): BP systolic 108–129; BP diastolic 56–74
[~2018-10-07] VITALS: Ht 154.9 cm; Wt 60.8 kg
--- NOTE | ~2018-10-07 | EKG ---
[place], [place] ELECTROCARDIOGRAM REPORT NAME: ADITHYA WILLIS UNIT #: [id number] ROOM: 412 DOCTOR: MARKEL DRAFT REPORT BIRTHDATE: [birth year] [facility] Test Date: 2018-10-07 Test Time: 10:52:38 Pat Name: ADITHYA WILLIS Department: Room: [facility] Gender: F Senior Project Accountant: Cha Vásquez : 1955 Requested By: PANDA FUNEZ Order Number: [id number] Reading MD: Riddhi Peralta MD Measurements Intervals [place] Rate: 86 P: 44 DE: 148 QRS: 27 QRSD: 94 T: 29 QT: 398 QTc: 476 Interpretive Statements Sinus rhythm No previous ECG available for comparison Electronically Signed On 10-07-2018 13:03:16 PDT by Riddhi Peralta MD CM:EKGRPT:ELECTROCARDIOGRAM REPORT [id number] PANDA JEAN BAPTISTE DRAFT REPORT PANDA FUNEZ MD
--- NOTE | ~2018-10-07 | PR ---
[place], [place] PROGRESS NOTE NAME: ADITHYA WILLIS [facility] #: [id number] UNIT #: [id number] ROOM: 412 DOCTOR: EMMA REINOSO MD BIRTHDATE: [birth year] DOS: 10/11/2018 SUBJECTIVE: The patient is chronically sick, pains are somewhat better. OBJECTIVE: VITAL SIGNS: Blood pressure 118/66, heart rate of 83 beats per minute, breathing 16-20 times per minute, temperature 98.2 degrees Fahrenheit. GENERAL APPEARANCE: The patient is alert and oriented x 3, in no visible distress. HEENT AND NECK: Exam within normal limits. CARDIOVASCULAR SYSTEM: Heart rate is regular in rate and rhythm. S1 and S2 normally audible. LUNGS: Clear to auscultation. ABDOMEN: Soft, nontender. No obvious organomegaly. Bowel sounds are present. EXTREMITIES: Without significant cyanosis or edema. IMPRESSION: 1. The patient's Parkinson-like tremors improved with Sinemet and they came back after discontinuing the medication and the improvement is about 50% according to the patient, so I will keep her on Sinemet for Parkinson's disease. 2. Urinary tract infection with Klebsiella pneumoniae, sensitive to ceftriaxone that the patient is getting. 3. Acute kidney failure. BUN and creatinine continues to improve. Creatinine was 1.36 today, getting closer to baseline. The patient had vasomotor type acute kidney failure from vomiting and dehydration. 4. Chronic primary insomnia, treated with temazepam. 5. Acute hyponatremia from nausea and vomiting, resolved. 6. Elevated lipase levels and suspected acute pancreatitis, improved with hydration. Abdominal pains have also resolved. EMMA REINOSO MD CM:PNTRANS [phone] EMMA REINOSO MD 10/12/18 0641 interface
--- NOTE | ~2018-10-07 | DS ---
[place], [place] DISCHARGE SUMMARY NAME: ADITHYA WILLIS [facility] #: [id number] UNIT #: [id number] ROOM: 412 DOCTOR: EMMA REINOSO MD BIRTHDATE: [birth year] DOS: 10/12/2018 DISCHARGE DIAGNOSES: 1. Acute pancreatitis with elevation of lipase, resolved. 2. Parkinson's disease, started on treatment with Sinemet. 3. Urinary tract infection with Klebsiella pneumoniae. 4. Acute kidney failure, vasomotor type. 5. Chronic primary insomnia. 6. Acute hyponatremia. 7. History of alcoholism. 8. History of colonic diverticulosis. 9. Major depression, recurrent, mild. 10. Nicotine smoke dependence, 1 pack of cigarettes a day. 11. James fundoplication. HOSPITAL COURSE: 1. The patient presented with acute diarrhea, nausea and vomiting, dehydration, vasomotor type, acute kidney failure and was treated with hydration and normal saline. The patient was hypokalemic, hyponatremic and her electrolytes returned to normal with treatment. 2. Parkinson's disease with tremors, resolved with Sinemet and they return when Sinemet stopped. The patient is being sent home on Sinemet to follow up with her PCP with this new diagnosis. 3. Acute hyponatremia, resolved with hydration and with resolution of diarrhea. 4. Vasomotor type, acute kidney failure from nausea, dehydration. Serum electrolytes are normal now prior to discharge. 5. Elevated lipase levels, although CAT scan did not show any significant pancreatitis, but the patient was initially kept n.p.o. and they hydrated and her lipase levels were improving and abdominal pains also resolved. 6. Chronic primary insomnia, treated with temazepam. 7. Elevation of BUN and creatinine with acute vasomotor type kidney failure from dehydration from nausea and vomiting. BUN and creatinine were followed and they improved with treatment with hydration. LABORATORY DATA: No leukocytosis. Hemoglobin 11. BUN and creatinine 17 and 1.26. Normal sodium and potassium now. Urine cultures grew Klebsiella pneumoniae, which was appropriately treated with ceftriaxone. DISCHARGE MANAGEMENT: Sinemet 10/100 mg 3 times a day, bupropion 300 mg daily, omeprazole 40 mg a day, Zoloft 150 mg a day, gabapentin 800 mg q.i.d., temazepam 30 mg at bedtime p.r.n. Follow up with PCP within a week of discharge. [place], [place] DISCHARGE SUMMARY NAME: ADITHYA WILLIS UNIT #: [id number] ROOM: 412 DOCTOR: EMMA REINOSO MD BIRTHDATE: [birth year] EMMA REINOSO MD CM:IRA [id number] EMMA REINOSO MD 10/12/18 2253 interface
--- NOTE | ~2018-10-07 | CON ---
[place], [place] REPORT OF CONSULTATION [id number] UNIT #: [id number] ROOM: 412 DOCTOR: PAXTON STOCKTON MD BIRTHDATE: [birth year] DOS: 10/07/2018 GASTROENDOSCOPIC REPORT HISTORY OF PRESENT ILLNESS: This is a 63-year-old patient, who has presented with chief complaint of epigastric pain, loss of coordination in ambulation. The patient has been admitted for definitive evaluation. A panel of blood work shows H and H of 12 and 36 and white blood cell of 8.5. INR is 1.0. Comprehensive metabolic panel: BUN and creatinine is 81 and 5.4. GFR of 10. Lactic acid was normal. CT scan of the abdomen and pelvis was done, no inflammatory process, no acute pathology in the abdomen defined, [id number] diverticulosis without complication, there is no bowel pathology, moderate size hiatal hernia, main organs are otherwise within normal limits. Pancreas normal. Her electrolytes were reviewed. Sodium of 130 and potassium of 3.3. Liver function tests normal, lipase of 850 noticed. PAST MEDICAL HISTORY: Associated with atypical abdominal pain, epigastric pain secondary to hiatal hernia, diverticulosis, depression, electrolyte imbalance, renal failure, and history of peptic ulcer disease. PAST SURGICAL HISTORY: James fundoplication, carpal tunnel, tonsillectomy, teeth extraction, and right rotator cuff repair. MEDICATIONS: Medication list reviewed. SOCIAL HISTORY: Nicotine dependence, history of alcohol abuse. FAMILY HISTORY: Noncontributory. REVIEW OF SYSTEMS: HEENT: In general, denies double vision, blurred vision. RESPIRATORY: Denies shortness of breath. CARDIOVASCULAR: Denies acute chest pain. DIGESTIVE SYSTEM: Epigastric pain, pancreatitis. PHYSICAL EXAMINATION: VITAL SIGNS: Stable. HEENT: Within normal limits. NECK: Supple. No thyromegaly. No cervical lymphadenopathy. CHEST: Symmetric anatomy, equal expansion. No wheeze, no rhonchi. HEART: Normal sinus rhythm, no gallop, and no murmur. ABDOMEN: Soft. No hepato-organomegaly. Bowel sounds present. EXTREMITIES: Benign. NEUROLOGICAL: She is alert and oriented to time, place, and person. IMPRESSION: Epigastric distress, elevated lipase, and no acute evidence of pancreatitis based on CT scan of the abdomen. PLAN AND DISCUSSION: Correction of electrolytes, hypokalemia correction, and renal management. The patient may need Nephrology consult based on improvement [place], [place] REPORT OF CONSULTATION NAME: ADITHYA WILLIS UNIT #: [id number] ROOM: 412 DOCTOR: MAHIN PRUITT,PAXTON BIRTHDATE: [birth year] or correction of BUN and creatinine. As far as lipase, this is not of acute concern, may be contribution of old alcoholism and is going to resolve spontaneously with hydration. PAXTON STOCKTON MD CM:CONSTR:REPORT OF CONSULTATION 08 10/19/18 1559 interface
--- NOTE | ~2018-10-07 | WRIGHTHP ---
[place], [place] PATIENT HISTORY AND PHYSICAL EXAM NAME: ADITHYA WILLIS [facility] #: [id number] UNIT #: [id number] ROOM: 412 DOCTOR: EMMA REINOSO MD BIRTHDATE: [birth year] DOS: HISTORY OF PRESENT ILLNESS: The patient is a 63-year-old female with a past medical history of; 1. Alcoholism. 2. History of alcoholic gastritis. 3. History of colonic diverticulosis. 4. Major depression, recurrent, mild. 5. History of nicotine smoke dependence, 1 pack of cigarettes a day. 6. History of James fundoplication. The patient presented with recurrent nausea and vomiting, some diarrhea for a few days to the Emergency Department, had significant upper abdominal pains with elevated lipase levels. The patient was diagnosed as having acute pancreatitis with nausea, vomiting, dehydration and vasomotor type, acute kidney failure. The patient is very weak and having difficulty in walking, loss of appetite. The patient was also found to be hypokalemic and hyponatremic and recommended for admission for the management. After admission, the patient still has no appetite and I have kept her n.p.o. and her lipase level is still elevated. She is being hydrated with normal saline and BUN and creatinine is improving. No chest pain, some shortness of breath, no other GI or urinary symptoms. REVIEW OF SYSTEMS: RESPIRATORY: The patient smokes cigarettes and is complaining of some shortness of breath. GASTROINTESTINAL: The patient has nausea, vomiting, diarrhea. CARDIOVASCULAR SYSTEM: No chest pains or palpitations. FAMILY HISTORY: Noncontributory. HOME MEDICATIONS: Bupropion, omeprazole, Zoloft, gabapentin, temazepam. LABORATORY DATA: Urine cultures growing heavy gram-negative bacilli. BUN and creatinine elevated to [address] of the abdomen and pelvis without contrast showing no acute abnormality. IMPRESSION: 1. Urinary tract infection with urine cultures growing gram-negative bacilli with recurrent nausea, vomiting, dehydration and is being treated with hydration with normal saline, now being treated with IV ceftriaxone and the patient is starting to improve. 2. Nausea, vomiting and dehydration resulting from urinary tract infection, improving with treatment with antibiotic. 3. Acute vasomotor type kidney failure from nausea, vomiting and dehydration, being treated with hydration and normal saline. 4. Acute hyponatremia and hypokalemia from nausea and vomiting, resolved with hydration and giving her potassium supplements. 5. Ambulatory dysfunction and generalized weakness from acute dehydration and vomiting, improving with treatment. 6. Suspected acute pancreatitis, although no significant finding on CT scan of [place], [place] PATIENT HISTORY AND PHYSICAL EXAM [id number] UNIT #: [id number] ROOM: [facility] DOCTOR: EMMA REINOSO MD BIRTHDATE: [birth year] the abdomen with elevation of lipase, which is being monitored. The patient hydrated and kept n.p.o. I will allow diet as tolerated now. 7. Major depression, recurrent, mild, treated with bupropion. 8. Gastroesophageal reflux disease and esophagitis and history of James fundoplication. The patient is on omeprazole, asymptomatic. 9. Chronic primary insomnia, treated with temazepam. EMMA REINOSO MD CM:HISPHYS:PATIENT HISTORY AND PHYSICAL EXAMINATION 55 13 EMMA REINOSO MD 10/08/18 171 interface
--- NOTE | ~2018-10-07 | PR ---
[place], [place] PROGRESS NOTE NAME: ADITHYA WILLIS UNIT #: [id number] ROOM: 412 DOCTOR: ARLETH PRUITTEMMA Villagomez BIRTHDATE: [birth year] DOS: 10/09/2018 SUBJECTIVE: The patient is starting to feel better, but she is complaining of tremors, which she had for a while and she has not been evaluated for Parkinson's disease, which was in her parents and she would like to be checked. OBJECTIVE: VITAL SIGNS: Blood pressure 118/68, heart rate of 77 beats per minute, breathing 18 times per minute, temperature 98 degrees Fahrenheit. GENERAL APPEARANCE: The patient is alert and oriented x 3, in no visible distress. The patient does have slow tremors of her hands and even her neck. HEENT AND NECK: Exam within normal limits. CARDIOVASCULAR SYSTEM: Heart rate is regular in rate and rhythm. S1 and S2 normally audible. LUNGS: Clear to auscultation. ABDOMEN: Soft, nontender. No obvious organomegaly. Bowel sounds are present. EXTREMITIES: Without significant cyanosis or edema. IMPRESSION AND PLAN: 1. Urinary tract infection with Klebsiella pneumoniae, sensitive to ceftriaxone, which she is taking. 2. Nausea and vomiting from urinary tract infection have resolved with treatment with antibiotic. 3. Acute vasomotor type kidney failure with BUN and creatinine improved to 59 and 2.82 with hydration with normal saline. 4. Suspicion of Parkinson's disease to be checked with few doses of Sinemet. Nursing staff will let me know if her tremors improve with this treatment. 5. Acute hyponatremia from nausea and vomiting has resolved. Sodium levels are normal now at 144. 6. Ambulatory dysfunction and suspicion of Parkinson's disease. The patient to work with Physical Therapy. 7. Suspected acute pancreatitis with elevation of lipase, which I will repeat in the morning. Today's lipase level is improving at 697. No pancreatitis on CT of the abdomen. 8. Major depression, recurrent, mild, treated with bupropion. 9. Gastroesophageal reflux disease and esophagitis with history of James fundoplication. The patient treated with omeprazole, is asymptomatic. 10. Chronic primary insomnia, treated with temazepam. [place], [place] PROGRESS NOTE NAME: ADITHYA WILLIS UNIT #: [id number] ROOM: [facility] DOCTOR: EMMA REINOSO MD BIRTHDATE: [birth year] EMMA REINOSO MD CM:PNTRANS [phone] EMMA REINOSO MD 10/09/18 1821 interface
--- NOTE | ~2018-10-07 | PR ---
[place], [place] PROGRESS NOTE NAME: ADITHYA WILLIS [facility] #: [id number] UNIT #: [id number] ROOM: 412 DOCTOR: EMMA REINOSO MD BIRTHDATE: [birth year] DOS: 10/10/2018 SUBJECTIVE: The patient is feeling much better. She is n.p.o.. Her tremors have improved with Sinemet. OBJECTIVE: GENERAL APPEARANCE: The patient is alert and oriented x 3, in no visible distress. VITAL SIGNS: Blood pressure 150/86, heart rate of 86 beats per minute, breathing 18 times per minute, temperature 98 degrees Fahrenheit. HEENT AND NECK: Exam within normal limits. CARDIOVASCULAR SYSTEM: Heart rate is regular in rate and rhythm. S1 and S2 normally audible. LUNGS: Clear to auscultation. ABDOMEN: Soft, nontender. No obvious organomegaly. Bowel sounds are present. EXTREMITIES: Without significant cyanosis or edema. IMPRESSION: 1. The patient with Parkinson's like tremors, improved with Sinemet. I am discontinuing the medication to see if her symptoms come back. In that case, she is going to need the medication and she will get a diagnosis of Parkinson's. 2. Urinary tract infection with Klebsiella pneumoniae sensitive to ceftriaxone. The patient is getting treated. 3. Acute kidney failure. Creatinine continues to improve to 1.85. 4. Hypokalemia related to hydration. The patient is getting extra potassium supplements today. Nephrology consult obtained. 5. Chronic primary insomnia, treated with temazepam. 6. Major depression, recurrent, mild, treated with bupropion. 7. The patient had elevated lipase levels and suspected acute pancreatitis, improved with hydration. Upper abdominal pains have resolved. 8. Acute hyponatremia with nausea and vomiting has resolved. Sodium levels have been normal. EMMA REINOSO MD CM:PNTRANS [phone] EMMA REINOSO MD 10/11/18 0016 interface
--- NOTE | ~2018-10-07 | PR ---
[place], [place] PROGRESS NOTE NAME: ADITHYA WILLIS [facility] #: [id number] UNIT #: [id number] ROOM: 412 DOCTOR: MAHIN PRUITTPAXTON BIRTHDATE: [birth year] DOS: 10/12/2018 GASTROENDOSCOPIC PROGRESS REPORT HISTORY OF PRESENT ILLNESS: The patient has presented with chief complaint of abdominal pain, suspected for pancreatitis. Her lipase was elevated initially, subsequently hydration, clear liquid, and supportive means has dropped lipase to 360. Her initial lipase level was 850. Her panel of liver function test was done. Her triglyceride level was assessed at about 350 and we were not convinced that her hyperlipidemia to be entirely secondary to pancreatitis; however, this was checked and was doubled normal at 360+. Therefore, we have decided to start a Lopid of 600 mg on her to see if we can control and hyperlipidemia in view of the fact that the patient has not been an alcoholic by history except rare and in social settings. PAST MEDICAL HISTORY: Reviewed. PAST SURGICAL HISTORY: Associated with James fundoplication, rotator cuff, tonsillectomy, teeth extraction. All has been reviewed. The patient; however, history of alcohol and smoking in general has been on board. We understand and recognize contribution of old alcohol history and nicotine history into her pancreatitis and elevation of lipase. REVIEW OF SYSTEMS: HEENT: Denies double vision, blurred vision. RESPIRATORY: Denies acute shortness of breath. CARDIOVASCULAR: Acute chest pain. DIGESTIVE SYSTEM: No hematemesis, no hematochezia still complaining of gross abdominal pain, mild degree. PHYSICAL EXAMINATION: GENERAL: Otherwise, standing up. HEENT: Head normocephalic, nontraumatic. Mouth and buccal mucosa benign. NECK: Supple, no thyromegaly, no cervical lymphadenopathy. CHEST: Symmetric anatomy, equal expansion. LUNGS: No wheeze, no rhonchi. Decreased air entry bilaterally. HEART: Normal sinus rhythm, no gallop, no murmur. ABDOMEN: Soft. No hepato-organomegaly. Bowel sounds present. EXTREMITIES: No cyanosis, no pedal edema. NEUROLOGIC: Alert and oriented. IMPRESSION AND PLAN: Hyperlipidemia, subclinical pancreatitis, elevation of lipase greater than 800 at the time of admission with improvement, hypertriglyceridemia slight with a lipid of greater than 360. The patient with old history of alcohol present and history of smoking until recent for years, multi-contributory factors to hyperlipidemia and subclinical pancreatitis. CT scan of the abdomen and pelvis has been reviewed. The main organs including liver, spleen, pancreas, adrenal glands, all have been suboptimally evaluated with a noncontrasted CT. However, no acute pathology has been report. [place], [place] PROGRESS NOTE [id number] UNIT #: [id number] ROOM: 412 DOCTOR: PAXTON STOCKTON MD BIRTHDATE: [birth year] We will continue with supportive means. The patient advised to continue to abstain from smoking and alcohol and Lopid one a day to reduce hypertriglyceridemia and followup as outpatient. PAXTON STOCKTON MD CM:PNTRANS [id number] PAXTON STOCKTON MD 10/19/18 1546 interface
[~2018-10-07 10:23] MED LIST changes: +CEFUROXIME AXE250 MG PO; +NICODERM CQ1 EAC1 T; +PROTONIX40 MG PO
[2018-10-07 11:20] LABS: BASO % 0.4 % (0.0-1.0); EOS # 0.1 10*3/uL (0.0-0.4); EOS % 1.2 % (1.0-4.0); HEMATOCRIT 36.9 % (37.0-47.0); HEMOGLOBIN 12.2 g/dl (12.0-16.0); LYMPH # 0.7 10*3/uL (1.3-4.4); LYMPH % 7.7 % (27.0-41.0); MEAN CELL VOLUME 86.6 fl (81.0-99.0); MEAN CORPUSCULAR HGB 28.6 pg (27.0-31.0); MEAN CORPUSCULAR HGB CONC 33.1 g/dl (33.0-37.0); MONO # 1.1 10*3/uL (0.1-1.0); MONO % 12.6 % (3.0-9.0); NEUT # 6.6 10*3/uL (2.3-7.9); NEUT % 77.7 % (47.0-73.0); PLATELET COUNT AUTOMATED 199 10*3/uL (130-400); RED BLOOD COUNT 4.26 10*6/uL (4.10-5.10); RED CELL DISTRI WIDTH 14.6 % (0-14.5); WHITE BLOOD COUNT 8.5 10*3/uL (4.8-10.8)
[2018-10-07 11:33] LABS: ACT PARTIAL THROMBO TIME 23.4 SECONDS (20.0-32.1)
[2018-10-07 11:36] LABS: ALBUMIN 3.3 gm/dl (3.1-4.5); ALKALINE PHOSPHATASE 88 U/L (45-117); BUN 81 mg/dl (7-24); CHLORIDE 99 mmol/L (98-107); CREATININE 5.41 mg/dL (0.55-1.02); LIPASE 852 U/L (73-393); SGOT/AST 22 IU/L (3-35); SGPT/ALT 17 U/L (12-78); SODIUM 130 mmol/L (136-145)
[2018-10-07 11:38] LABS: POTASSIUM 3.3 mmol/L (3.5-5.1); TROPONIN I < 0.015 ng/ml (<0.045)
[2018-10-07 12:41] LABS: BILIRUBIN NEGATIVE (NEGATIVE); BLOOD TRACE-INTACT (NEGATIVE); CLARITY SL CLOUDY (CLEAR); COLOR YELLOW (YELLOW); GLUCOSE NEGATIVE (NEGATIVE); KETONE TRACE (NEGATIVE); LEUKO ESTERASE 2+ (NEGATIVE); NITRITE POSITIVE (NEGATIVE); PH 5.5 (5.0-9.0); SPECIFIC GRAVITY <= 1.005 (1.005-1.030); UROBILINOGEN 0.2 E.U./dl (0.2-1.0)
[2018-10-07 12:58] LABS: BACTERIA 4+; WBC 51-100 wbc/hpf (0-5)
--- NOTE | 2018-10-07 14:10 | NUR ---
RECCIEVED ROOM ASSIGNMENT
--- NOTE | 2018-10-07 14:35 | NUR ---
A 63, admitted to 4E, under the services of Dr. ARLETH PRUITT,EMMA Villagomez with a diagnosis of PANCREATITIS, HYPONATREMIA, KERVIN, HYPOKALEMIA. Chief complaint is ABD PAIN X1 WEEK, POOR APPETITE. Patient arrived via ambulatory from ER. Monitor applied. Initial assessment completed. Vital signs taken and recorded. DR. ARLETH PRUITT,EMMA Villagomez notified of admission to the unit. Orders received. See assessment for past medical history, medications and allergies. Patient and/or family oriented to unit. [facility] visitation policy reviewed. Clothing/patient valuable form completed. NETO CARRIZALES
[2018-10-07] MEDS ORDERED: OMEPRAZOLE40 MG PO (14:48)
[2018-10-07] MEDS ORDERED: GABAPENTIN800 MG PO (14:48)
[2018-10-07] MEDS ORDERED: ZANTAC 150150 MG PO (14:50)
--- NOTE | 2018-10-07 15:16 | NUR ---
PHYSICAL THERAPY Nursing screen received and chart reviewed. Patient reports history of falls and recently having more difficulty walking/getting around. Patient may benefit from skilled PT services to address deficits noted. Please order PT evaluation if/when appropriate. Thank you. Ailyn Villalta,PT,DPT.
--- NOTE | 2018-10-07 15:43 | NUR ---
DR STOCKTON MADE AWARE OF NEW CONSULT.
--- NOTE | 2018-10-07 17:11 | NUR ---
MEDICATED WITH DILAUDID PER PRN ORDER FOR COMPLAINTS OF ALL OVER ABD PAIN, RATES PAIN 8/10. WILL MONITOR FOR EFFECTIVENESS.
--- NOTE | 2018-10-07 20:55 | NUR ---
DR. STOCKTON HERE AND EXAMINED PT. ORDERS TO BE RECIEVED.
--- NOTE | 2018-10-07 21:52 | NUR ---
DILAUDID GIVEN PER ORDER FOR RIGHT SIDE ABD PAIN RATED 8/10. SEE MAR
--- NOTE | 2018-10-07 22:50 | NUR ---
DILAUDID EFFECTIVE FOR ABD PAIN PER PT.
[2018-10-08] VITALS: BP 120/77
--- NOTE | 2018-10-08 01:11 | NUR ---
SLEEPING NOT AWAKEND. NO ACUTE DISTRESS NOTED.
--- NOTE | 2018-10-08 03:37 | NUR ---
DILAUDID GIVEN PER ORDER FOR ABD PAIN RATED 9/10 PER PT. SEE MAR.
--- NOTE | 2018-10-08 05:27 | NUR ---
24 HR chart check completed.
[2018-10-08 06:29] LABS: CREATININE 4.04 mg/dL (0.55-1.02)
[2018-10-08 07:05] LABS: POTASSIUM 4.2 mmol/L (3.5-5.1)
--- NOTE | 2018-10-08 08:10 | NUR ---
Medicated with dilaudid iv per prn order for complaints of abdominal pain. States pain is all over abdomen but worse on rt side. Rates pain 8/10 states pain is sharp. States dilaudid is effective for pain.
[2018-10-08 08:41] VITALS: BP 92/60
--- NOTE | 2018-10-08 09:00 | NUR ---
States that dilaudid effective.
[2018-10-08 12:15] VITALS: BP 108/56
--- NOTE | 2018-10-08 12:23 | NUR ---
Medicated with dilaudid iv per prn order for complaints of abdominal pain. States pain is a 7/10. States pain is across entire abdomen but worse on rt upper and lower quads.
--- NOTE | 2018-10-08 13:15 | NUR ---
States that dilaudid effective.
[2018-10-08 14:24] VITALS: BP 104/58
[2018-10-08 16:18] VITALS: BP 102/58
--- NOTE | 2018-10-08 16:46 | NUR ---
Medicated with dilaudid iv per prn order for complaints of abdominal pain. States pain is 7/10. Pain is located same as prior. Denies nausea.
--- NOTE | 2018-10-08 17:21 | NUR ---
States dilaudid effective.
[2018-10-08 20:00] VITALS: BP 121/70
--- NOTE | 2018-10-08 21:55 | NUR ---
DILAUDID GIVEN PER ORDER FOR ABD PAIN RATED 8/10 SEE APR.
--- NOTE | 2018-10-08 22:55 | NUR ---
DILAUDID EFFECTIVE FOR ABD PAIN PER PT.
[2018-10-09] VITALS: BP 124/70
--- NOTE | 2018-10-09 03:01 | NUR ---
DILAUDID GIVEN PER ORDER FOR ABD PAIN RATED 8/10 SEE APR.
--- NOTE | 2018-10-09 03:44 | NUR ---
24 HR chart check completed.
--- NOTE | 2018-10-09 04:00 | NUR ---
DILAUDID EFFECTIVE PT. SLEEPING RESP EASY AND REG.
--- NOTE | 2018-10-09 05:28 | NUR ---
TREMORING OF HANDS AND UNSTEADINESS CONTINUES, PATIENT STATES "THIS IS NOT NORMAL FOR ME".
[2018-10-09 05:56] LABS: CREATININE 2.82 mg/dL (0.55-1.02); POTASSIUM 3.9 mmol/L (3.5-5.1)
[2018-10-09 06:19] LABS: BASO % 0.4 % (0.0-1.0); EOS # 0.1 10*3/uL (0.0-0.4); EOS % 1.9 % (1.0-4.0); HEMATOCRIT 33.8 % (37.0-47.0); HEMOGLOBIN 10.4 g/dl (12.0-16.0); LYMPH # 0.6 10*3/uL (1.3-4.4); LYMPH % 13.4 % (27.0-41.0); MEAN CORPUSCULAR HGB CONC 30.8 g/dl (33.0-37.0); MEAN PLATELET VOLUME 9.8 fl (9.6-12.3); MONO # 0.7 10*3/uL (0.1-1.0); MONO % 14.3 % (3.0-9.0); NEUT # 3.2 10*3/uL (2.3-7.9); NEUT % 67.4 % (47.0-73.0); PLATELET COUNT AUTOMATED 192 10*3/uL (130-400); RED BLOOD COUNT 3.72 10*6/uL (4.10-5.10); RED CELL DISTRI WIDTH 15.2 % (0-14.5); WHITE BLOOD COUNT 4.7 10*3/uL (4.8-10.8)
[2018-10-09 06:59] LABS: MEAN CELL VOLUME 90.9 fl (81.0-99.0)
[2018-10-09 08:00] VITALS: BP 118/68
--- NOTE | 2018-10-09 10:44 | NUR ---
MEDICATED WITH DILAUDID FOR C/O ABD PAIN RATED AT 7 OUT OF 10.
[2018-10-09 12:00] VITALS: BP 119/71
--- NOTE | 2018-10-09 13:25 | NUR ---
DILAUDID EARLIER WAS EFFECTIVE.
--- NOTE | 2018-10-09 13:58 | NUR ---
DR. WHYTE NOT AWARE OF CONSULT OUT OF TOWN TILL 10/10. DR. REINOSO AWARE.
[2018-10-09 16:00] VITALS: BP 122/60
--- NOTE | 2018-10-09 19:30 | NUR ---
ASSUMED CARE OF PATIENT AT THIS TIME. RECEIVED REPORT FROM TARA OLIVA RN. ASSESSMENT OF PATIENT COMPLETED. PATIENT RESTING IN BED ON SIDE. DISPLAYS NO S/S OF DISTRESS. DOES PRESENT WITH CRACKLES IN LUNGS SCATTERED, MORE SO IN HER RLL. DENIES ANY SHORTNESS OF BREATH. NO EDEMA NOTED. CALL LIGHT IS WITHIN REACH.
[2018-10-09 20:00] VITALS: BP 125/69
--- NOTE | 2018-10-09 21:11 | NUR ---
CALLED DR REINOSO ABOUT THE PATIENT HAVING CRACKLES IN HER LUNGS AND FLUIDS RUNNING. REQUESTED TO STOP FLUID INFUSION. RECEIVED ORDER.
--- NOTE | 2018-10-09 21:27 | NUR ---
PATIENT GIVEN MEDICATIONS. TAKEN WITHOUT ISSUE. NO S/S OF DISTRESS. CALL LIGHT WITHIN REACH. IV FLUIDS DISCONTINUED.
--- NOTE | 2018-10-09 23:00 | NUR ---
PT AWAKE IN BED. DENIES ANY NEEDS AT THIS TIME. WILL MONITOR. CALL LIGHT IN REACH. BED ALARM INTACT.
[2018-10-10] VITALS: BP 135/75
--- NOTE | 2018-10-10 00:32 | NUR ---
PO TYLENOL ADMINISTERED AT THIS TIME FOR C/O ABD PAIN RATED 8/10. PT STATES PAIN IS LOCALIZED TO RLQ. PO RESTORIL ALSO ADMINISTERED FOR C/O INSOMNIA. WILL MONITOR. CALL LIGHT LEFT IN REACH.
[2018-10-10 03:00] VITALS: BP 131/75
[2018-10-10 06:16] LABS: BASO % 0.4 % (0.0-1.0); EOS # 0.1 10*3/uL (0.0-0.4); EOS % 2.2 % (1.0-4.0); HEMOGLOBIN 10.2 g/dl (12.0-16.0); LYMPH # 0.8 10*3/uL (1.3-4.4); LYMPH % 16.8 % (27.0-41.0); MEAN CELL VOLUME 89.4 fl (81.0-99.0); MEAN CORPUSCULAR HGB 28.5 pg (27.0-31.0); MEAN CORPUSCULAR HGB CONC 31.9 g/dl (33.0-37.0); MEAN PLATELET VOLUME 9.7 fl (9.6-12.3); MONO # 0.5 10*3/uL (0.1-1.0); MONO % 10.8 % (3.0-9.0); NEUT # 3.1 10*3/uL (2.3-7.9); NEUT % 67.9 % (47.0-73.0); PLATELET COUNT AUTOMATED 189 10*3/uL (130-400); RED BLOOD COUNT 3.58 10*6/uL (4.10-5.10); RED CELL DISTRI WIDTH 14.7 % (0-14.5); WHITE BLOOD COUNT 4.6 10*3/uL (4.8-10.8)
[2018-10-10 06:44] LABS: CREATININE 1.85 mg/dL (0.55-1.02)
--- NOTE | 2018-10-10 07:31 | NUR ---
ATTEMPTED TO REACH REGARDING CONSULT. NO ANSWER. WILL ATTEMPT AGAIN. AM SHIFT RN AWARE CONSULT NEEDS TO BE CALLED.
[2018-10-10 08:00] VITALS: BP 150/86
--- NOTE | 2018-10-10 08:30 | NUR ---
DR. MCKINNEY NOTIFIED OF CONSULT. OBTAINED ORDER FOR 40MEQ K-DUR X 2 DOSES.
--- NOTE | 2018-10-10 09:00 | NUR ---
Assembly Line Machine Operator in to talk to patient. Patient states lives at home alone with her family checking in on her. There are 20 steps in the home. Physician: Dr. Jorge Tipton [facility] Home health services: none Patient's level of ADLs: INDEPENDENT Patient has working utilities: yes DME: none Follow-up physician's appointment after d/c: she prefers to make her own follow up appt after discharge Does patient want to access PORTAL?: no Discharge plan discussed with patient. She lives at home alone with her family checking in on her. She is independent in her ADLs and ambulation. Discussed home health care services and she denies any home needs at this time. When medically stable she will be discharged to home. Ex- will transport on discharge. JAGJIT DURON
--- NOTE | 2018-10-10 09:05 | NUR ---
MEDICATED WITH PRN IV DILAUDID FOR RT SIDE ABDOMINAL PAIN.
--- NOTE | 2018-10-10 09:42 | NUR ---
PHYSICAL THERAPY Physical therapy evaluation complete, 4E. Low complexity evaluation (95461) per chart review and evaluation. PT to progress with gait, LE strength, and balance via POC. Recommend discharge with home health PT at discharge. Thank you. Ailyn Villalta,PT,DPT.
--- NOTE | 2018-10-10 09:45 | NUR ---
PRN IV DILAUDID EFFECTIVE, PER PATIENT.
--- NOTE | 2018-10-10 11:09 | NUR ---
MEDICATED WITH PRN MILK OF MAGNESIA FOR CONSTIPATION.
[2018-10-10 12:00] VITALS: BP 150/86
--- NOTE | 2018-10-10 12:59 | NUR ---
mEDICATED FOR c/o pain to abdomen scale 5/10.
--- NOTE | 2018-10-10 13:47 | NUR ---
PRN IV DILAUDID EFFECTIVE, PER PATIENT.
[2018-10-10 16:00] VITALS: BP 118/81
--- NOTE | 2018-10-10 17:48 | NUR ---
MEDICATED WITH PRN IV DILAUDID FOR RLQ ABDOMINAL PAIN.
--- NOTE | 2018-10-10 18:27 | NUR ---
PRN IV DILAUDID EFFECTIVE, PER PATIENT.
[2018-10-10 20:00] VITALS: BP 136/67
[2018-10-11] VITALS: BP 132/76
[2018-10-11 00:20] LABS: URINE CREATININE RANDOM 48.8 mg/dL
--- NOTE | 2018-10-11 03:35 | NUR ---
PT ASLEEP IN BED. RESPIRATIONS EASY. NO S/S OF DISTRESS NOTED. WILL MONITOR. CALL LIGHT IN REACH.
[2018-10-11 06:57] LABS: BASO % 0.5 % (0.0-1.0); EOS # 0.2 10*3/uL (0.0-0.4); EOS % 2.5 % (1.0-4.0); HEMATOCRIT 34.9 % (37.0-47.0); HEMOGLOBIN 11.1 g/dl (12.0-16.0); LYMPH # 0.9 10*3/uL (1.3-4.4); LYMPH % 14.3 % (27.0-41.0); MEAN CELL VOLUME 88.4 fl (81.0-99.0); MEAN CORPUSCULAR HGB 28.1 pg (27.0-31.0); MEAN CORPUSCULAR HGB CONC 31.8 g/dl (33.0-37.0); MEAN PLATELET VOLUME 9.2 fl (9.6-12.3); MONO # 0.7 10*3/uL (0.1-1.0); MONO % 11.3 % (3.0-9.0); NEUT # 4.3 10*3/uL (2.3-7.9); NEUT % 68.4 % (47.0-73.0); PLATELET COUNT AUTOMATED 227 10*3/uL (130-400); RED BLOOD COUNT 3.95 10*6/uL (4.10-5.10); RED CELL DISTRI WIDTH 14.6 % (0-14.5); WHITE BLOOD COUNT 6.3 10*3/uL (4.8-10.8)
[2018-10-11 07:31] LABS: CHLORIDE 112 mmol/L (98-107); LIPASE 667 U/L (73-393); POTASSIUM 3.6 mmol/L (3.5-5.1); SODIUM 141 mmol/L (136-145)
[2018-10-11 07:39] LABS: ALKALINE PHOSPHATASE 78 U/L (45-117); BILIRUBIN, DIRECT < 0.1 mg/dL (0.0-0.2); CREATININE 1.36 mg/dL (0.55-1.02); SGOT/AST 10 IU/L (3-35); SGPT/ALT 12 U/L (12-78); TOTAL PROTEIN 7.2 gm/dL (6.4-8.2)
[2018-10-11 07:50] LABS: BUN 23 mg/dl (7-24)
[2018-10-11 08:00] VITALS: BP 148/82
--- NOTE | 2018-10-11 09:00 | NUR ---
Customer Insight Analyst in to see patient. No new needs or request at this time. She denies any home needs. When medically stable she will be discharged to home.
--- NOTE | 2018-10-11 09:48 | NUR ---
MEDICATED WITH PRN IV DILAUDID FOR RLQ PAIN AND MILK OF MAGNESIA FOR CONSTIPATION; STATES BM THIS MORNING SMALL/NOT ADEQUATE.
--- NOTE | 2018-10-11 11:28 | NUR ---
PRN IV DILAUDID EFFECTIVE, PER PATIENT.
--- NOTE | 2018-10-11 13:58 | NUR ---
MEDICATED WITH PRN IV DILAUDID FOR RLQ PAIN.
--- NOTE | 2018-10-11 14:18 | NUR ---
PHYSICAL THERAPY Patient presented to therapy in sitting on EOB and no complaints. Patient has IV attached and infusing at this time. Patient was identified by name and . Patient gives informed consent for treatment. Patient performed sit to stand from EOB with SBA. Patient ambulated 220' x 1 with no assistive device and Close Supervision with no LOB or other difficulty. Patient is MOD I in room throughout the day, back and forth from bathroom. Patient was left sitting on EOB with call light within reach. Patient was 1:1 with this CAR HEAD LINER INSTALLER for 15 minutes total. MONTRELL GARCIA CAR HEAD LINER INSTALLER
--- NOTE | 2018-10-11 14:52 | NUR ---
PRN IV DILAUDID EFFECTIVE FOR SHORT TIME, PER PATIENT.
[2018-10-11 16:00] VITALS: BP 118/66
--- NOTE | 2018-10-11 17:50 | NUR ---
PATIENT MEDICATED WITH PRN IV DILAUDID FOR RLQ PAIN.
--- NOTE | 2018-10-11 18:50 | NUR ---
PRN IV DILAUDID EFFECTIVE FOR BRIEF TIME, PER PATIENT.
[2018-10-11 20:00] VITALS: BP 130/86
--- NOTE | 2018-10-11 21:09 | NUR ---
PO RESTORIL ADMINISTERED PER PRN ORDER FOR C/O RESTLESSNESS/INSOMNIA. WILL MONITOR EFFECTIVESS. CALL LIGHT LEFT IN REACH.
--- NOTE | 2018-10-11 23:08 | NUR ---
EARLIER RESTORIL BEGINNING TO WORK PER PT. STATES SHE JUST NEEDS SOMETHING FOR PAIN & SHE THINKS SHE WILL GET TO SLEEP. IV DILAUDID ADMINISTERED AT THIS TIME FOR C/O PAIN IN ABD RATED 8/10. WILL MONITOR. CALL LIGHT IN REACH.
[2018-10-12] VITALS: BP 113/82
--- NOTE | 2018-10-12 00:36 | NUR ---
EARLIER MEDICATION EFFECTIVE PER PT. PT NOW REQUESTING SORBET. VUPBROSI SORBET PROVIDED PER REQUEST. WILL MONITOR. CALL LIGHT IN REACH.
--- NOTE | 2018-10-12 05:15 | NUR ---
IV DILAUDID ADMINISTERED PER REQUEST FOR C/O ABD PAIN (RLQ) RATED 6/10. WILL MONITOR EFFECTIVENESS. CALL LIGHT IN REACH.
--- NOTE | 2018-10-12 05:38 | NUR ---
PO NORCO ADMINISTERED PER PRN ORDER FOR C/O PAIN IN BACK/LEGS RATED 7/10. WILL MONITOR EFFECTIVENESS. PT APPEARS FLUSHED IN THE FACE AFTER RN TURNED HEAT UP IN ROOM. TYMPANIC TEMPERATURE CHECKED-99.8. ROOM TEMPERATURE TURNED BACK DOWN PER REQUEST. WILL MONITOR.
--- NOTE | 2018-10-12 06:32 | NUR ---
EARLIER MEDICATION EFFECTIVE PER PT. WILL CONTINUE TO MONITOR. CALL LIGHT IN REACH.
[2018-10-12 07:07] LABS: CREATININE 1.26 mg/dL (0.55-1.02); POTASSIUM 3.7 mmol/L (3.5-5.1)
[2018-10-12 08:00] VITALS: BP 140/90
--- NOTE | 2018-10-12 09:00 | NUR ---
case management visits with patient, patient states she will be returning home when able and denies any home needs
--- NOTE | 2018-10-12 10:05 | NUR ---
MEDICATED WITH PRN IV DILAUDID FOR RLQ PAIN.
--- NOTE | 2018-10-12 10:38 | NUR ---
PRN IV DILAUDID EFFECTIVE, PER PATIENT.
[2018-10-12 12:00] VITALS: BP 140/78
--- NOTE | 2018-10-12 13:08 | NUR ---
MEDICATED WITH PRN IV DILAUDID FOR RLQ PAIN.
[2018-10-12] MEDS ORDERED: Sinemet 10-100MG PO (14:38)
--- NOTE | 2018-10-12 16:03 | NUR ---
Discharge instructions reviewed with patient. Patient receptive and verbalizes understanding. Follow-up care arranged. Written instructions given to patient. PATIENT DISCHARGED TO [facility], AMBULATORY FOR TRANSPORT HOME BY [facility]. MORGAN RAMOS
--- NOTE | 2018-10-12 16:26 | NUR ---
PHYSICAL THERAPY CO-SIGN I approve of the Physical Therapy notes written above. JAGJIT DE PAZ PT,DPT
== END 2018-10-12 16:04 | disposition home or self-care (01) | DRG 438 ==
LOC: ED 10:23 → 4E 12:52 → EDHOLD 12:52 → 4E 14:09
PROVIDERS: Emergency Medicine; Internal Medicine Nephrology; ADMIT Internal Medicine
DX: K85.90 Acute pancreatitis without necrosis or infection, unspecified (principal); N17.0 Acute kidney failure with tubular necrosis; E87.1 Hypo-osmolality and hyponatremia; N39.0 Urinary tract infection, site not specified; F33.0 Major depressive disorder, recurrent, mild; E87.2 Acidosis; E87.6 Hypokalemia; K21.0 Gastro-esophageal reflux disease with esophagitis; B96.1 Klebsiella pneumoniae [K. pneumoniae] as the cause of diseases classified elsewhere; M54.9 Dorsalgia, unspecified; M54.2 Cervicalgia; G89.29 Other chronic pain; F41.1 Generalized anxiety disorder; K57.30 Diverticulosis of large intestine without perforation or abscess without bleeding; B96.89 Other specified bacterial agents as the cause of diseases classified elsewhere; E86.0 Dehydration; F51.01 Primary insomnia; E78.5 Hyperlipidemia, unspecified; E78.1 Pure hyperglyceridemia; E87.8 Other disorders of electrolyte and fluid balance, not elsewhere classified; R31.9 Hematuria, unspecified; E83.42 Hypomagnesemia; G20 Parkinson's disease; F17.210 Nicotine dependence, cigarettes, uncomplicated; Z66 Do not resuscitate; Z51.5 Encounter for palliative care; Z87.11 Personal history of peptic ulcer disease; Z79.899 Other long term (current) drug therapy; Z90.89 Acquired absence of other organs; Z83.3 Family history of diabetes mellitus; Z82.3 Family history of stroke; Z82.49 Family history of ischemic heart disease and other diseases of the circulatory system; Z82.0 Family history of epilepsy and other diseases of the nervous system

== ENCOUNTER → 2018-10-18 | Outpatient (CLI) | payer MEDICARE, MEDICAID ==
[~2018-10-18] MED LIST changes: +GABAPENTIN800 MG PO; +OMEPRAZOLE40 MG PO; +Sinemet 10-100MG PO
[2018-10-18 13:34] LABS: HEMATOCRIT 38.2 % (37.0-47.0); HEMOGLOBIN 11.9 g/dl (12.0-16.0); MEAN CELL VOLUME 90.5 fl (81.0-99.0); MEAN CORPUSCULAR HGB 28.2 pg (27.0-31.0); MEAN CORPUSCULAR HGB CONC 31.2 g/dl (33.0-37.0); MEAN PLATELET VOLUME 9.5 fl (9.6-12.3); RED BLOOD COUNT 4.22 10*6/uL (4.10-5.10); RED CELL DISTRI WIDTH 15.1 % (0-14.5); WHITE BLOOD COUNT 10.5 10*3/uL (4.8-10.8)
[2018-10-18 13:59] LABS: ALBUMIN 4.1 gm/dl (3.1-4.5); CREATININE 1.33 mg/dL (0.55-1.02); PHOSPHOROUS 3.7 mg/dL (2.5-4.9); POTASSIUM 4.1 mmol/L (3.5-5.1)
== END | disposition home or self-care (01) ==
LOC: LAB 12:50
PROVIDERS: Family Medicine
DX: E87.6 Hypokalemia (principal); E87.1 Hypo-osmolality and hyponatremia; K85.90 Acute pancreatitis without necrosis or infection, unspecified; N17.9 Acute kidney failure, unspecified

== ENCOUNTER → 2018-11-07 | Outpatient (CLI) | payer MEDICARE, MEDICAID ==
[~2018-11-07] MED LIST changes: +CARBIDOPA-LEVO1 EAC5 PO; +VITAMIN D50000 UNIT PO
[2018-11-07 07:51] LABS: BASO # 0.1 10*3/uL (0.0-0.1); BASO % 0.9 % (0.0-1.0); EOS # 0.2 10*3/uL (0.0-0.4); EOS % 2.5 % (1.0-4.0); HEMATOCRIT 37.9 % (37.0-47.0); HEMOGLOBIN 12.2 g/dl (12.0-16.0); LYMPH # 1.5 10*3/uL (1.3-4.4); LYMPH % 24.2 % (27.0-41.0); MEAN CELL VOLUME 90.7 fl (81.0-99.0); MEAN CORPUSCULAR HGB 29.2 pg (27.0-31.0); MEAN CORPUSCULAR HGB CONC 32.2 g/dl (33.0-37.0); MEAN PLATELET VOLUME 9.4 fl (9.6-12.3); MONO # 0.5 10*3/uL (0.1-1.0); MONO % 8.3 % (3.0-9.0); NEUT % 63.3 % (47.0-73.0); PLATELET COUNT AUTOMATED 199 10*3/uL (130-400); RED BLOOD COUNT 4.18 10*6/uL (4.10-5.10); RED CELL DISTRI WIDTH 15.2 % (0-14.5); WHITE BLOOD COUNT 6.4 10*3/uL (4.8-10.8)
[2018-11-07 08:22] LABS: ALBUMIN 3.5 gm/dl (3.1-4.5); ALKALINE PHOSPHATASE 114 U/L (45-117); BUN 20 mg/dl (7-24); CHLORIDE 107 mmol/L (98-107); CREATININE 1.03 mg/dL (0.55-1.02); LIPASE 168 U/L (73-393); POTASSIUM 4.1 mmol/L (3.5-5.1); SGOT/AST 15 IU/L (3-35); SGPT/ALT 8 U/L (12-78); SODIUM 140 mmol/L (136-145); TOTAL PROTEIN 7.3 gm/dL (6.4-8.2)
== END | disposition home or self-care (01) ==
LOC: LAB 06:54
PROVIDERS: Family Medicine
DX: K21.9 Gastro-esophageal reflux disease without esophagitis (principal); K85.90 Acute pancreatitis without necrosis or infection, unspecified; R10.9 Unspecified abdominal pain; E74.00 Glycogen storage disease, unspecified; F41.1 Generalized anxiety disorder

== ENCOUNTER → 2018-11-14 | Outpatient (CLI) | payer MEDICARE, MEDICAID ==
[~2018-11-14] MED LIST changes: -CARBIDOPA-LEVO1 EAC5 PO; -VITAMIN D50000 UNIT PO
== END | disposition home or self-care (01) ==
LOC: US 13:15
DX: N18.3 Chronic kidney disease, stage 3 (moderate) (principal)

== ENCOUNTER 2018-12-07 04:52 | Inpatient (IN) | payer MEDICARE, MEDICAID ==
[2018-12-07] VITALS (10 sets, daily range): BP systolic 97–151; BP diastolic 53–91
[~2018-12-07] VITALS: Ht 154.9 cm; Wt 58.1 kg
[2018-12-07 05:38] LABS: BASO % 0.3 % (0.0-1.0); EOS % 0.1 % (1.0-4.0); HEMATOCRIT 46.1 % (37.0-47.0); HEMOGLOBIN 15.2 g/dl (12.0-16.0); LYMPH # 1.9 10*3/uL (1.3-4.4); LYMPH % 17.6 % (27.0-41.0); MEAN CELL VOLUME 86.3 fl (81.0-99.0); MEAN CORPUSCULAR HGB 28.5 pg (27.0-31.0); MEAN PLATELET VOLUME 9.4 fl (9.6-12.3); MONO # 0.8 10*3/uL (0.1-1.0); MONO % 7.2 % (3.0-9.0); NEUT # 8.1 10*3/uL (2.3-7.9); NEUT % 74.3 % (47.0-73.0); PLATELET COUNT AUTOMATED 272 10*3/uL (130-400); RED BLOOD COUNT 5.34 10*6/uL (4.10-5.10); RED CELL DISTRI WIDTH 14.7 % (0-14.5); WHITE BLOOD COUNT 10.9 10*3/uL (4.8-10.8)
[2018-12-07 05:55] LABS: LIPASE 113 U/L (73-393)
[2018-12-07 05:56] LABS: ALBUMIN 4.3 gm/dl (3.1-4.5); ALKALINE PHOSPHATASE 86 U/L (45-117); BUN 40 mg/dl (7-24); CHLORIDE 99 mmol/L (98-107); CREATININE 1.01 mg/dL (0.55-1.02); POTASSIUM 3.2 mmol/L (3.5-5.1); SGOT/AST 58 IU/L (3-35); SGPT/ALT 40 U/L (12-78); SODIUM 131 mmol/L (136-145)
[2018-12-07 06:00] LABS: TROPONIN I 0.414 ng/ml (<0.045)
[2018-12-07 06:14] LABS: ACT PARTIAL THROMBO TIME 22.2 SECONDS (20.0-32.1)
--- NOTE | 2018-12-07 06:58 | NUR ---
DENIES CHEST PAIN OR SOB AT PRESENT DOES C/O OF RUQ PAIN AND STILL SOME NAUSEA, DR FUENTES NOTIFIED
--- NOTE | 2018-12-07 08:03 | NUR ---
REPORT RECEIVED AT 0715 FROM GEETHA SEGOVIA. THIS PT IS AWAKE AND ALERT. SHE IS COMPLAINING OF MID AND RIGHT SIDED ABDOMINAL PAIN. AREAS ARE TENDER TO PALPATE. SHE IS COMPLAINING OF NAUSEA,NO EMESIS NOTED. DR FLORES IN TO SEE PT. NEW ORDER FOR ZOFRAN OBTAINED AND GIVEN. PT WILL HAVE AN ABDOMINAL CAT SCAN DONE. VS ARE STABLE. MINNIE SEGOVIA
--- NOTE | 2018-12-07 10:27 | NUR ---
PT IS SLEEPING NOW. AWAKENS EASILY AND STATES THAT ABDOMINAL PAIN HAS IMPROVED. RESPIRATIONS ARE NON-LABORED. VS ARE STABLE. MINNIE SEGOVIA
[2018-12-07] MEDS ORDERED: VITAMIN D50000 UNIT PO (11:43)
[2018-12-07] MEDS ORDERED: CARBIDOPA-LEVO1 EAC5 PO (11:47)
--- NOTE | 2018-12-07 12:23 | NUR ---
[facility] 63, admitted to , under the services of SKYLAR Mathur MD with a diagnosis of ABDM. PAIN. Chief complaint is ABDM. PAIN. Patient arrived via bed from ER. Monitor applied. Initial assessment completed. Vital signs taken and recorded. SKYLAR MATHUR MD notified of admission to the unit. Orders received. See assessment for past medical history, medications and allergies. Patient and/or family oriented to unit. [facility] ICCU visitation policy reviewed. Clothing/patient valuable form completed. LORENZO STEPHENSON
--- NOTE | 2018-12-07 12:46 | NUR ---
NOTIFIED DR. QUIÑONEZ'S OFICE OF CONSULT.
--- NOTE | 2018-12-07 13:54 | NUR ---
NOTIFIED DR. QUIÑONEZ'S TEAM OF CRITICAL LAB VALUE.
--- NOTE | 2018-12-07 20:37 | NUR ---
PATIENT MEDICATED WITH PRN RESTORIL ORDERD PER PATIENT REQUEST FOR INSOMNIA.
[2018-12-08] VITALS: BP 133/51
[2018-12-08 08:00] VITALS: BP 144/88
--- NOTE | 2018-12-08 08:15 | NUR ---
MEDICATED WITH ZOFRAN PER ORDER. DR. WANG HERE AND SEEING PATIENT.
--- NOTE | 2018-12-08 08:30 | NUR ---
Supervisor Finish End in to talk to patient. Patient states lives at home alone with her family checking in on her. There are 20 steps in the home. Physician: Dr. Jorge Tipton [facility] Home health services: none Patient's level of ADLs: INDEPENDENT Patient has working utilities: yes DME: none Follow-up physician's appointment after d/c: she prefers to make her own follow up appt after discharge Does patient want to access PORTAL?: no Discharge plan discussed with patient. She lives at home alone with her family checking in on her. She is independent in her ADLs and ambulation. Discussed home health care services and she denies any home needs at this time. When medically stable she will be discharged to home. Ex- will provide transportation or discharge. If he is unavailable she will call a cab. JAGJIT DURON
--- NOTE | 2018-12-08 08:45 | NUR ---
DR. STOCKTON AWARE OF CONSULT.
--- NOTE | 2018-12-08 09:47 | NUR ---
NUCLEAR MED CAME UP TO INJECT PATIENT FOR STRESS TEST AND PATIENT CONFESSED TO TAKING A CAFFIENE PILL. STRESS CANCELLED TILL TOMORROW. EXPLAINED TO PATIENT SHE CANNOT TAKE HER OWN MEDICATIONS. PATIENT DECIDED TO LEAVE AMA. LEFT MESSAGE ON DR. WANG PHONE. DAMAGE ASSESSOR AWARE.
[2018-12-08 10:10] LABS: BUN 32 mg/dl (7-24); CHLORIDE 99 mmol/L (98-107); CREATININE 1.07 mg/dL (0.55-1.02); POTASSIUM 2.9 mmol/L (3.5-5.1); SODIUM 132 mmol/L (136-145)
== END 2018-12-08 09:47 | disposition left against medical advice (07) | DRG 392 ==
LOC: ED 04:52 → 4E 11:36
PROVIDERS: Emergency Medicine; ADMIT Internal Medicine
DX: R10.84 Generalized abdominal pain (principal); R79.89 Other specified abnormal findings of blood chemistry; F32.9 Major depressive disorder, single episode, unspecified; F10.20 Alcohol dependence, uncomplicated; F17.210 Nicotine dependence, cigarettes, uncomplicated; G89.29 Other chronic pain; Z53.29 Procedure and treatment not carried out because of patient's decision for other reasons; R07.89 Other chest pain; F41.0 Panic disorder [episodic paroxysmal anxiety]; M54.2 Cervicalgia; M54.9 Dorsalgia, unspecified; K57.90 Diverticulosis of intestine, part unspecified, without perforation or abscess without bleeding; Z87.11 Personal history of peptic ulcer disease; Z87.440 Personal history of urinary (tract) infections; Z83.3 Family history of diabetes mellitus; Z82.0 Family history of epilepsy and other diseases of the nervous system; Z82.3 Family history of stroke; Z79.899 Other long term (current) drug therapy; Z71.6 Tobacco abuse counseling

== ENCOUNTER → 2018-12-14 | Outpatient (CLI) | payer MEDICARE, MEDICAID ==
[~2018-12-14] MED LIST changes: +CARBIDOPA-LEVO1 EAC5 PO; +VITAMIN D50000 UNIT PO
[2018-12-14 11:48] LABS: CPK 147 U/L (26-192)
[2018-12-14 11:55] LABS: TROPONIN I < 0.015 ng/ml (<0.045)
== END | disposition home or self-care (01) ==
LOC: LAB 11:15
PROVIDERS: Family Medicine
DX: R79.89 Other specified abnormal findings of blood chemistry (principal)

== ENCOUNTER → 2019-01-06 | Outpatient (CLI) | payer MEDICARE, MEDICAID | END | disposition home or self-care (01) | LOC: RAD 12:17 | DX: M47.817 Spondylosis without myelopathy or radiculopathy, lumbosacral region (principal); M51.37 Other intervertebral disc degeneration, lumbosacral region; M25.552 Pain in left hip ==

== ENCOUNTER → 2019-08-01 | Outpatient (CLI) | payer MEDICARE, MEDICAID ==
[~2019-08-01] MED LIST changes: +LEVOFLOXACIN500 MG PO
[2019-08-01 08:09] LABS: LIPASE 1570 U/L (73-393)
== END | disposition home or self-care (01) ==
LOC: LAB 06:56
PROVIDERS: Nurse Practitioner Family
DX: R10.11 Right upper quadrant pain (principal); R06.02 Shortness of breath; R73.9 Hyperglycemia, unspecified; E74.9 Disorder of carbohydrate metabolism, unspecified

== ENCOUNTER 2019-08-02 11:43 | Inpatient (IN) | payer MEDICARE, MEDICAID ==
[~2019-08-02] VITALS: Ht 154.9 cm; Wt 56.9 kg
[~2019-08-02 11:43] MED LIST changes: -LEVOFLOXACIN500 MG PO
[2019-08-02 11:55] VITALS: BP 127/74
[2019-08-02 12:48] LABS: BASO % 0.5 % (0.0-1.0); EOS # 0.1 10*3/uL (0.0-0.4); EOS % 1.7 % (1.0-4.0); HEMATOCRIT 35.3 % (37.0-47.0); LYMPH # 1.6 10*3/uL (1.3-4.4); LYMPH % 23.6 % (27.0-41.0); MEAN CELL VOLUME 89.6 fl (81.0-99.0); MEAN CORPUSCULAR HGB 29.9 pg (27.0-31.0); MEAN CORPUSCULAR HGB CONC 33.4 g/dl (33.0-37.0); MEAN PLATELET VOLUME 9.6 fl (9.6-12.3); MONO # 0.5 10*3/uL (0.1-1.0); MONO % 6.8 % (3.0-9.0); NEUT # 4.4 10*3/uL (2.3-7.9); NEUT % 66.8 % (47.0-73.0); PLATELET COUNT AUTOMATED 148 10*3/uL (130-400); RED BLOOD COUNT 3.94 10*6/uL (4.10-5.10); RED CELL DISTRI WIDTH 14.8 % (0-14.5); WHITE BLOOD COUNT 6.6 10*3/uL (4.8-10.8)
[2019-08-02 12:50] VITALS: BP 122/7
[2019-08-02 12:59] VITALS: BP 108/67; BP 122/71
[2019-08-02 13:16] LABS: ALBUMIN 3.5 gm/dl (3.1-4.5); ALKALINE PHOSPHATASE 56 U/L (45-117); BUN 20 mg/dl (7-24); CHLORIDE 104 mmol/L (98-107); CREATININE 0.68 mg/dL (0.55-1.02); LIPASE 653 U/L (73-393); POTASSIUM 3.3 mmol/L (3.5-5.1); SGOT/AST 124 IU/L (3-35); SGPT/ALT 110 U/L (12-78); SODIUM 133 mmol/L (136-145)
[2019-08-02 13:53] LABS: BILIRUBIN NEGATIVE (NEGATIVE); BLOOD NEGATIVE (NEGATIVE); CLARITY SL CLOUDY (CLEAR); COLOR YELLOW (YELLOW); GLUCOSE NEGATIVE (NEGATIVE); KETONE NEGATIVE (NEGATIVE); LEUKO ESTERASE 2+ (NEGATIVE); NITRITE NEGATIVE (NEGATIVE); SPECIFIC GRAVITY 1.005 (1.005-1.030); UROBILINOGEN 0.2 E.U./dl (0.2-1.0)
[2019-08-02 14:52] LABS: BACTERIA 1+
[2019-08-02 16:27] VITALS: BP 109/69
[2019-08-02 16:50] VITALS: BP 127/74
[2019-08-02] MEDS ORDERED: PRILOSEC20 M1 PO (16:53)
[2019-08-02 20:00] VITALS: BP 121/67
[2019-08-03] VITALS: BP 120/64
[2019-08-03 06:21] LABS: BASO % 0.6 % (0.0-1.0); EOS # 0.1 10*3/uL (0.0-0.4); EOS % 2.6 % (1.0-4.0); HEMATOCRIT 37.8 % (37.0-47.0); LYMPH # 1.5 10*3/uL (1.3-4.4); LYMPH % 28.9 % (27.0-41.0); MEAN CELL VOLUME 91.3 fl (81.0-99.0); MEAN CORPUSCULAR HGB CONC 31.7 g/dl (33.0-37.0); MEAN PLATELET VOLUME 10.1 fl (9.6-12.3); MONO # 0.4 10*3/uL (0.1-1.0); MONO % 6.6 % (3.0-9.0); NEUT # 3.2 10*3/uL (2.3-7.9); NEUT % 60.9 % (47.0-73.0); PLATELET COUNT AUTOMATED 170 10*3/uL (130-400); RED BLOOD COUNT 4.14 10*6/uL (4.10-5.10); WHITE BLOOD COUNT 5.3 10*3/uL (4.8-10.8)
[2019-08-03 06:50] LABS: BUN 14 mg/dl (7-24); CHLORIDE 111 mmol/L (98-107); CREATININE 0.84 mg/dL (0.55-1.02); LIPASE 607 U/L (73-393); POTASSIUM 3.6 mmol/L (3.5-5.1); SODIUM 140 mmol/L (136-145)
[2019-08-03 08:00] VITALS: BP 110/70
[2019-08-03 12:00] VITALS: BP 121/70
[2019-08-03 16:00] VITALS: BP 101/73
[2019-08-03 20:13] VITALS: BP 104/78
[2019-08-04 00:06] VITALS: BP 102/50
[2019-08-04 06:27] LABS: BASO % 0.5 % (0.0-1.0); EOS # 0.1 10*3/uL (0.0-0.4); HEMATOCRIT 32.9 % (37.0-47.0); LYMPH # 1.2 10*3/uL (1.3-4.4); LYMPH % 26.3 % (27.0-41.0); MEAN CELL VOLUME 90.6 fl (81.0-99.0); MEAN CORPUSCULAR HGB 29.2 pg (27.0-31.0); MEAN CORPUSCULAR HGB CONC 32.2 g/dl (33.0-37.0); MEAN PLATELET VOLUME 10.1 fl (9.6-12.3); MONO # 0.5 10*3/uL (0.1-1.0); MONO % 10.8 % (3.0-9.0); NEUT # 2.6 10*3/uL (2.3-7.9); NEUT % 58.7 % (47.0-73.0); PLATELET COUNT AUTOMATED 154 10*3/uL (130-400); RED BLOOD COUNT 3.63 10*6/uL (4.10-5.10); RED CELL DISTRI WIDTH 14.8 % (0-14.5); WHITE BLOOD COUNT 4.4 10*3/uL (4.8-10.8)
[2019-08-04 06:41] LABS: BUN 9 mg/dl (7-24); CHLORIDE 116 mmol/L (98-107); CREATININE 0.72 mg/dL (0.55-1.02); LIPASE 402 U/L (73-393); POTASSIUM 3.6 mmol/L (3.5-5.1); SODIUM 145 mmol/L (136-145)
[2019-08-04 08:00] VITALS: BP 118/75
[2019-08-04] MEDS ORDERED: LEVOFLOXACIN500 MG PO (08:01)
[2019-08-04] MEDS ORDERED: METRONIDAZOLE500 M1 PO (08:01)
== END 2019-08-04 08:30 | disposition home or self-care (01) | DRG 391 ==
LOC: ED 11:43 → 4E 15:40 → EDHOLD 15:40 → 4E 16:04
PROVIDERS: Internal Medicine; Physician Assistant; ADMIT Internal Medicine
DX: K57.32 Diverticulitis of large intestine without perforation or abscess without bleeding (principal); K85.90 Acute pancreatitis without necrosis or infection, unspecified; F33.0 Major depressive disorder, recurrent, mild; K86.0 Alcohol-induced chronic pancreatitis; Z66 Do not resuscitate; Z51.5 Encounter for palliative care; F41.1 Generalized anxiety disorder; F17.210 Nicotine dependence, cigarettes, uncomplicated; K44.9 Diaphragmatic hernia without obstruction or gangrene; K70.0 Alcoholic fatty liver; G89.29 Other chronic pain; F51.01 Primary insomnia; Z83.3 Family history of diabetes mellitus; Z82.0 Family history of epilepsy and other diseases of the nervous system

== ENCOUNTER → 2019-08-09 | Outpatient (CLI) | payer MEDICARE, MEDICAID ==
[~2019-08-09] MED LIST changes: +LEVOFLOXACIN500 MG PO
[2019-08-09 07:30] LABS: HEMATOCRIT 38.8 % (37.0-47.0); MEAN CELL VOLUME 94.9 fl (81.0-99.0); MEAN CORPUSCULAR HGB 30.3 pg (27.0-31.0); MEAN PLATELET VOLUME 9.7 fl (9.6-12.3); RED BLOOD COUNT 4.09 10*6/uL (4.10-5.10); RED CELL DISTRI WIDTH 15.9 % (0-14.5); WHITE BLOOD COUNT 10.6 10*3/uL (4.8-10.8)
[2019-08-09 08:01] LABS: ALBUMIN 3.9 gm/dl (3.1-4.5); ALKALINE PHOSPHATASE 58 U/L (45-117); BUN 13 mg/dl (7-24); CHLORIDE 108 mmol/L (98-107); CREATININE 0.83 mg/dL (0.55-1.02); LIPASE 170 U/L (73-393); POTASSIUM 3.4 mmol/L (3.5-5.1); SGOT/AST 34 IU/L (3-35); SGPT/ALT 65 U/L (12-78); SODIUM 136 mmol/L (136-145); TOTAL PROTEIN 7.7 gm/dL (6.4-8.2)
== END | disposition home or self-care (01) ==
LOC: LAB 07:02
PROVIDERS: Family Medicine
DX: K85.91 Acute pancreatitis with uninfected necrosis, unspecified (principal); E55.9 Vitamin D deficiency, unspecified; F41.1 Generalized anxiety disorder

== ENCOUNTER → 2019-09-11 | Outpatient (CLI) | payer MEDICARE, MEDICAID | END | disposition home or self-care (01) | LOC: MAMMO 07:16 | DX: Z12.31 Encounter for screening mammogram for malignant neoplasm of breast (principal) ==

== ENCOUNTER → 2019-09-19 | Outpatient (CLI) | payer MEDICARE, MEDICAID ==
[~2019-09-19] MED LIST changes: +Motrin,Rufen400 MG PO; +NORCO 5-325 TA1 EACH PO; +VALTREX1000 MG PO
== END | disposition home or self-care (01) ==
LOC: COVID19 02:28
DX: R05 Cough (principal); R50.9 Fever, unspecified; Z20.828 Contact with and (suspected) exposure to other viral communicable diseases

== ENCOUNTER 2019-09-21 11:11 | Emergency (ER) | payer MEDICARE, MEDICAID ==
[~2019-09-21] VITALS: Ht 154.9 cm; Wt 54.0 kg
[~2019-09-21 11:11] MED LIST changes: -Motrin,Rufen400 MG PO; -NORCO 5-325 TA1 EACH PO; -VALTREX1000 MG PO
[2019-09-21] MEDS ORDERED: Motrin,Rufen400 MG PO (11:51)
[2019-09-21] MEDS ORDERED: NORCO 5-325 TA1 EACH PO (11:51)
[2019-09-21] MEDS ORDERED: VALTREX1000 MG PO (11:52)
== END 2019-09-21 11:56 | disposition home or self-care (01) ==
LOC: ED 11:11
DX: B02.9 Zoster without complications (principal); K21.9 Gastro-esophageal reflux disease without esophagitis; F17.200 Nicotine dependence, unspecified, uncomplicated; Z79.899 Other long term (current) drug therapy

== ENCOUNTER 2019-12-13 18:10 | Inpatient (IN) | payer MEDICARE, MEDICAID ==
[~2019-12-13] VITALS: Ht 154.9 cm; Wt 47.8 kg
[~2019-12-13 18:10] MED LIST changes: +Motrin,Rufen400 MG PO; +NORCO 5-325 TA1 EACH PO; +VALTREX1000 MG PO
[2019-12-13 18:15] VITALS: BP 121/67
[2019-12-13 18:34] LABS: BASO % 0.4 % (0.0-1.0); EOS # 0.3 10*3/uL (0.0-0.4); EOS % 3.5 % (1.0-4.0); HEMATOCRIT 42.5 % (37.0-47.0); LYMPH # 0.8 10*3/uL (1.3-4.4); LYMPH % 11.3 % (27.0-41.0); MEAN CELL VOLUME 89.7 fl (81.0-99.0); MEAN CORPUSCULAR HGB 28.7 pg (27.0-31.0); MEAN PLATELET VOLUME 9.1 fl (9.6-12.3); MONO # 0.5 10*3/uL (0.1-1.0); MONO % 6.6 % (3.0-9.0); NEUT # 5.7 10*3/uL (2.3-7.9); NEUT % 77.5 % (47.0-73.0); PLATELET COUNT AUTOMATED 233 10*3/uL (130-400); RED BLOOD COUNT 4.74 10*6/uL (4.10-5.10); RED CELL DISTRI WIDTH 14.9 % (0-14.5); WHITE BLOOD COUNT 7.4 10*3/uL (4.8-10.8)
--- NOTE | 2019-12-13 18:38 | NUR ---
PATIENT DENIES WOUNDS A&OX4.
[2019-12-13 18:48] LABS: ACT PARTIAL THROMBO TIME 27.9 SECONDS (20.0-32.1)
[2019-12-13 18:52] LABS: ALBUMIN 3.5 gm/dl (3.1-4.5); ALKALINE PHOSPHATASE 117 U/L (45-117); BUN 43 mg/dl (7-24); CHLORIDE 104 mmol/L (98-107); CREATININE 1.43 mg/dL (0.55-1.02); POTASSIUM 4.5 mmol/L (3.5-5.1); SGOT/AST 67 IU/L (3-35); SGPT/ALT 39 U/L (12-78); SODIUM 136 mmol/L (136-145); TOTAL PROTEIN 8.2 gm/dL (6.4-8.2)
[2019-12-13 18:58] LABS: TROPONIN I < 0.015 ng/ml (<0.045)
--- NOTE | 2019-12-13 19:05 | NUR ---
PATIENT REPORT TO NIRALI SEGOVIA AT THIS TIME.
--- NOTE | 2019-12-13 19:14 | NUR ---
NURSE TO NURSE REPORT GIVEN TO THIS RN
[2019-12-13 19:37] VITALS: BP 120/63
[2019-12-13 19:45] LABS: ARTERIAL BLOOD GAS PH 7.24 (7.35-7.45)
[2019-12-13 19:46] VITALS: BP 145/75
[2019-12-13 19:46] LABS: ABG BASE EXCESS -17.9 mmol/L (-2.0-2.0)
--- NOTE | 2019-12-13 19:46 | NUR ---
A 64, admitted to ICCU, under the services of SKYLAR Mathur MD with a diagnosis of ALCOHOL ABUSE HIGH ANION GAP METABOLIC ACIDOSIS ELEVATED LACTIC ACID LEVEL. Chief complaint is ETOH WITHDRAWL. Patient arrived via stretcher from ER. Monitor applied. Initial assessment completed. Vital signs taken and recorded. SKYLAR MATHUR MD notified of admission to the unit. Orders received. See assessment for past medical history, medications and allergies. Patient and/or family oriented to unit. [facility] ICCU visitation policy reviewed. Clothing/patient valuable form completed. DELIA ERWIN
[2019-12-13 22:52] LABS: BILIRUBIN Negative (Negative); BLOOD 2+ (Negative); CLARITY Clear (Clear); COLOR Yellow (Yellow); GLUCOSE Negative (Negative); KETONE 3+ (Negative); LEUKO ESTERASE Negative (Negative); NITRITE Negative (Negative); SPECIFIC GRAVITY 1.015 (1.001-1.030); UROBILINOGEN 0.2 E.U./dl (0.0-1.0)
[2019-12-13 22:59] LABS: EPITHELIAL CELLS 16-20; RBC 0-2 rbc/hpf (0-2); WBC 0-2 wbc/hpf (0-5)
[2019-12-13 23:00] LABS: URINE AMPHETAMINES < 1000 (1000ng/ml); URINE BARBITURATES < 200 (200ng/ml); URINE BENZODIAZEPINES < 200 (200ng/ml); URINE CANNABINOIDS (THC) < 50 (50ng/ml); URINE COCAINE < 300 (300ng/ml); URINE METHADONE < 300 (300ng/ml); URINE OPIATES < 300 (300ng/ml)
[2019-12-13 23:04] LABS: URINE PHENCYCLIDINE < 25 (25ng/ml)
[2019-12-14] VITALS: BP 156/76
--- NOTE | 2019-12-14 02:36 | NUR ---
PATIENT HAVING VERY BAD TREMORS PATINET GIVEN ATIVAN TO HELP WITH DT'S.
[2019-12-14 04:00] VITALS: BP 143/85
[2019-12-14 06:29] LABS: HEMATOCRIT 37.3 % (37.0-47.0); MEAN CELL VOLUME 86.9 fl (81.0-99.0); MEAN CORPUSCULAR HGB 28.7 pg (27.0-31.0); MEAN PLATELET VOLUME 9.6 fl (9.6-12.3); PLATELET COUNT AUTOMATED 203 10*3/uL (130-400); RED BLOOD COUNT 4.29 10*6/uL (4.10-5.10); WHITE BLOOD COUNT 10.2 10*3/uL (4.8-10.8)
[2019-12-14 06:42] LABS: ALBUMIN 3.2 gm/dl (3.1-4.5); ALKALINE PHOSPHATASE 98 U/L (45-117); CHLORIDE 107 mmol/L (98-107); CREATININE 0.95 mg/dL (0.55-1.02); POTASSIUM 3.7 mmol/L (3.5-5.1); SGOT/AST 52 IU/L (3-35); SGPT/ALT 29 U/L (12-78); SODIUM 138 mmol/L (136-145); TOTAL PROTEIN 7.5 gm/dL (6.4-8.2)
[2019-12-14 06:44] LABS: BUN 27 mg/dl (7-24)
[2019-12-14 07:24] LABS: PLATELET SUFFICIENCY NORMAL (NORMAL); TOTAL CELLS COUNTED 100 #CELLS
[2019-12-14 08:00] VITALS: BP 124/83
[2019-12-14 12:00] VITALS: BP 157/86
[2019-12-14 16:00] VITALS: BP 144/73
[2019-12-14 17:10] LABS: ALBUMIN 2.6 gm/dl (3.1-4.5); ALKALINE PHOSPHATASE 88 U/L (45-117); BUN 16 mg/dl (7-24); CHLORIDE 108 mmol/L (98-107); CREATININE 0.64 mg/dL (0.55-1.02); POTASSIUM 2.8 mmol/L (3.5-5.1); SGOT/AST 41 IU/L (3-35); SGPT/ALT 25 U/L (12-78); SODIUM 140 mmol/L (136-145); TOTAL PROTEIN 6.6 gm/dL (6.4-8.2)
--- NOTE | 2019-12-14 17:27 | NUR ---
DR WHYTE NOTIFIED OF CMP RESULTS. NEW ORDERS RECEIVED.
--- NOTE | 2019-12-14 19:51 | NUR ---
Patient up to bedside, severe tremors having trouble holding toilet paper. Ativan given once back in bed, will monitor.
[2019-12-14 20:01] VITALS: BP 134/76
--- NOTE | 2019-12-14 20:50 | NUR ---
Patient resting, no signs of distress, tremors less while resting. Ativan effective.
--- NOTE | 2019-12-14 22:44 | NUR ---
Patient complaints of nausea and pain in abdomen. Zofran given, will monitor and reassess.
[2019-12-15] VITALS (8 sets, daily range): BP systolic 121–162; BP diastolic 67–92
--- NOTE | 2019-12-15 01:48 | NUR ---
PT MEDICATED AT 0000 WITH IV ATIVAN, PT BECAME SLIGHTLY AGITATED REQUESTING MEDICATION FOR HER SOMACH AND TO HELP HER SLEEP. PT MEDICATED PREVIOUSLY WITH IV ATIVAN 0.5MG EFFECTIVE. PT MEDICATED AGAIN WITH 0.5MG IV AND PT REMAINED VERY COOPERATIVE, WITH VSS AND RESTING QUIETLY IN BED
--- NOTE | 2019-12-15 01:49 | NUR ---
PT ASSISTED UP TO BSC, URINATED AND RETURNED TO BED, RESTING QUIETLY AND BED ALARM ACTIVATED.
--- NOTE | 2019-12-15 06:53 | NUR ---
Shift chart check completed.
[2019-12-15 07:40] LABS: ALBUMIN 2.8 gm/dl (3.1-4.5); ALKALINE PHOSPHATASE 76 U/L (45-117); BUN 8 mg/dl (7-24); CHLORIDE 110 mmol/L (98-107); CREATININE 0.57 mg/dL (0.55-1.02); POTASSIUM 2.8 mmol/L (3.5-5.1); SGOT/AST 33 IU/L (3-35); SGPT/ALT 24 U/L (12-78); SODIUM 145 mmol/L (136-145); TOTAL PROTEIN 6.5 gm/dL (6.4-8.2)
--- NOTE | 2019-12-15 08:30 | NUR ---
CM in to see patient. Unable to answer questions at this time. Will follow up at a later time.
[2019-12-15 08:45] LABS: BASO % 0.2 % (0.0-1.0); EOS % 0.2 % (1.0-4.0); HEMATOCRIT 34.5 % (37.0-47.0); LYMPH # 1.5 10*3/uL (1.3-4.4); MEAN CELL VOLUME 86.3 fl (81.0-99.0); MEAN CORPUSCULAR HGB 28.8 pg (27.0-31.0); MEAN CORPUSCULAR HGB CONC 33.3 g/dl (33.0-37.0); MEAN PLATELET VOLUME 9.6 fl (9.6-12.3); MONO # 0.4 10*3/uL (0.1-1.0); MONO % 4.3 % (3.0-9.0); NEUT # 6.2 10*3/uL (2.3-7.9); NEUT % 76.8 % (47.0-73.0); PLATELET COUNT AUTOMATED 146 10*3/uL (130-400); RED CELL DISTRI WIDTH 14.8 % (0-14.5); WHITE BLOOD COUNT 8.1 10*3/uL (4.8-10.8)
--- NOTE | 2019-12-15 11:08 | NUR ---
2ND IV PLACED PRIOR TO EGD TODAY (WITH DR STOCKTON) BY MARINE AIR GROUND TASK FORCE PLANNERS DARREN WITH ASSISTANCE OF ULTRASOUND
--- NOTE | 2019-12-15 11:30 | NUR ---
ATIVAN GIVEN FOR RESTLESSNESS & INCREASING TREMORS
--- NOTE | 2019-12-15 12:39 | NUR ---
TO SURGERY - REQUESTED ANESTHESIA ATTEMPT AN IV FOR BACKUP
--- NOTE | 2019-12-15 13:32 | NUR ---
CM in to see patient. She is currently not in her room. Will follow up at a later time.
--- NOTE | 2019-12-15 14:41 | NUR ---
RETURNED FROM SURGERY AFTER EGD - PT REQUESTING MORE PAIN MEDS &/OR ATIVAN.. EXPLAINED IT IS TOO SOON. PATIENT CLOSED HER EYES IMMEDIATELY..
--- NOTE | 2019-12-15 14:47 | NUR ---
DR WHYTE HERE AND CASE DISCUSSED
--- NOTE | 2019-12-15 15:30 | NUR ---
CM in to see patient. She is up on BSC. Nurse preparing Ativan. When asked if she would consider inpatient therapy on discharge. She would consider. CM will continue to follow with any discharge planning needs.
--- NOTE | 2019-12-15 15:33 | NUR ---
IV ATIVAN GIVEN FOR INCREASED ANXIETY AND STOMACH DISCOMFORT... EDUCATION GIVEN ABOUT EGD RESULTS AND MEDICATIONS THAT WILL BE ORDERED
--- NOTE | 2019-12-15 22:49 | NUR ---
24 HR chart check completed.
[2019-12-16 00:01] VITALS: BP 145/84
--- NOTE | 2019-12-16 00:54 | NUR ---
Patient awoke teary eyed and said she was having ab pain. Patient very weak up to bedside and having extreme tremors. Ativan given. Will monitor and reassess.
[2019-12-16 04:00] VITALS: BP 140/84
[2019-12-16 05:54] LABS: ALBUMIN 2.9 gm/dl (3.1-4.5); ALKALINE PHOSPHATASE 71 U/L (45-117); BUN 4 mg/dl (7-24); CHLORIDE 107 mmol/L (98-107); CREATININE 0.49 mg/dL (0.55-1.02); POTASSIUM 3.2 mmol/L (3.5-5.1); SGOT/AST 23 IU/L (3-35); SGPT/ALT 22 U/L (12-78); SODIUM 142 mmol/L (136-145); TOTAL PROTEIN 6.8 gm/dL (6.4-8.2)
[2019-12-16 06:09] LABS: BASO % 0.3 % (0.0-1.0); EOS # 0.1 10*3/uL (0.0-0.4); EOS % 0.7 % (1.0-4.0); LYMPH % 27.8 % (27.0-41.0); MEAN CELL VOLUME 87.7 fl (81.0-99.0); MEAN CORPUSCULAR HGB 28.2 pg (27.0-31.0); MEAN CORPUSCULAR HGB CONC 32.2 g/dl (33.0-37.0); MEAN PLATELET VOLUME 9.2 fl (9.6-12.3); MONO # 0.3 10*3/uL (0.1-1.0); MONO % 4.4 % (3.0-9.0); NEUT # 4.9 10*3/uL (2.3-7.9); NEUT % 66.4 % (47.0-73.0); PLATELET COUNT AUTOMATED 150 10*3/uL (130-400); RED BLOOD COUNT 4.22 10*6/uL (4.10-5.10); RED CELL DISTRI WIDTH 14.7 % (0-14.5); WHITE BLOOD COUNT 7.3 10*3/uL (4.8-10.8)
--- NOTE | 2019-12-16 07:20 | NUR ---
Shift chart check completed.24 HR chart check completed.
--- NOTE | 2019-12-16 07:35 | NUR ---
DR WANG HAS VISITED.
--- NOTE | 2019-12-16 07:58 | NUR ---
ROGE MORAN, SHIFT DIRECTOR, NOTIFIED OF PT'S TELEMETRY STATUS.
[2019-12-16 08:00] VITALS: BP 130/70
--- NOTE | 2019-12-16 08:37 | NUR ---
Hot Plate Plywood Press Laborer <Mehrdad, was notified of Transfer IMC.
--- NOTE | 2019-12-16 08:52 | NUR ---
ON ASSESSMENT PATIENT IS LISTLESS BUT ORIENTED, ABLE TO SAY WHERE SHE IS AND WHY SHE'S HERE. SHE'S ASKING FOR XANAX. HER ROUTINE AM MEDS GIVEN AND IV ATIVAN 0.5MG IV FOR SHAKINESS. POOR APPETITE. NO SEIZURE ACTIVITY. IV FLUIDS CONTINUE. KPHOS SUPPLEMENT UP TO INFUSE. MIDLINE JEANNE AND HEP LOCK DIMITRI. SEE ALL APPROPRIATE INTERVENTIONS.
--- NOTE | 2019-12-16 09:25 | NUR ---
EARLIER IV ATIVAN EFFECTIVE FOR DECREASED ANXIETY.
--- NOTE | 2019-12-16 11:02 | NUR ---
FOUND PATIENT WITH HER FINGER DOWN HER THROAT RETCHING INTO EMESIS BASIS. COULDN'T GIVE ME A REASON WHY. EXPLANATIONS THAT SHE HAS ESOPHAGEAL EROSIONS AND SHE SHOULD DEFIINITELY NOT BE DOING THAT. SHE ROLLED BACK OVER IN THE BED.
[2019-12-16 12:00] VITALS: BP 135/67
--- NOTE | 2019-12-16 13:53 | NUR ---
PT ASKS FREQUENTLY "WHEN CAN I HAVE MEDICINE AGAIN?" SHE HAS NO VISIBLE TREMORS, NO TACHYCARDIA AND WHEN I SAY "NOT YET" SHE CLOSES HER EYES AND APPEARS TO SLEEP AGAIN. SHE'S HAD SEVERAL PHONE CALLS FROM FAMILY TODAY. SHE WOULDN'T EAT ANY LUNCH.
--- NOTE | 2019-12-16 14:46 | NUR ---
IV ATIVAN 0.5MG GIVEN PT HAD BEEN ASKING WHEN SHE COULD HAVE IT.
--- NOTE | 2019-12-16 15:25 | NUR ---
ATIVAN EFFECTIVE TO ALLOW PT TO REST EASILY.
[2019-12-16 16:00] VITALS: BP 120/66
--- NOTE | 2019-12-16 17:23 | NUR ---
PT WANTED TO TRY WALKING WITH A WALKER. I WALKED WITH HER AND [facility], USING WHEELED WALKER, WITH STEADY GAIT. PLACED IN RECLINER CHAIR AT THE BEDSIDE.
--- NOTE | 2019-12-16 18:11 | NUR ---
BACK TO BED. PT HAS VERY POOR APPETITE. FEW BITES OF ICE CREAM/MASHED POTATOES.
--- NOTE | 2019-12-16 18:28 | NUR ---
DR WHYTE IN TO VISIT.
[2019-12-16 20:00] VITALS: BP 155/87
--- NOTE | 2019-12-16 20:19 | NUR ---
1930 RESTING IN BED WITH HOB ELEVATED. CALL LIGHT IN REACH. PULSE OX 97% ON RA. IN NO VISIBLE DISTRESS. REQUESTING ATIVAN. WILL GIVE AT 2044. NO TREMORS NOTED. MONITOR IS NSR IN THE 60-70'S. AFFECT REMAINS FLAT.
--- NOTE | 2019-12-16 21:01 | NUR ---
UP TO BSC WITH 1 ASSIST VOID. WEAK. ATIVAN 0.5MG IV GIVEN PER REQUEST FOR ANXIETY. WILL MONITOR.
--- NOTE | 2019-12-16 22:01 | NUR ---
EARKIER ATIVAN EFFECTIVE. RESTING IN BED WITH EYES CLOSED.
[2019-12-17] VITALS: BP 107/66
--- NOTE | 2019-12-17 00:20 | NUR ---
AWAKE AND WATCHING TV. NO DISTRESS NOTED.
--- NOTE | 2019-12-17 03:07 | NUR ---
ATIVAN 0.5MG IV FOR ANXIETY. WILL MONITOR.
--- NOTE | 2019-12-17 04:07 | NUR ---
EARLIER ATIVAN EFFECTIVE. RESTING IN BED WITH EYES CLOSED. APPEARS TO BE SLEEPING.
--- NOTE | 2019-12-17 05:25 | NUR ---
DR. WANG IN TO SEE PT.
--- NOTE | 2019-12-17 06:05 | NUR ---
PT RESTING IN BED WATCHING TV. IV FLUIDS CONT. NO DISTRESS NOTED. CONDITION GUARDED.
--- NOTE | 2019-12-17 06:56 | NUR ---
Shift chart check completed.24 HR chart check completed.
[2019-12-17 07:43] LABS: ALBUMIN 2.9 gm/dl (3.1-4.5); ALKALINE PHOSPHATASE 64 U/L (45-117); BUN 8 mg/dl (7-24); CHLORIDE 113 mmol/L (98-107); POTASSIUM 3.5 mmol/L (3.5-5.1); SGOT/AST 19 IU/L (3-35); SGPT/ALT 20 U/L (12-78); SODIUM 143 mmol/L (136-145); TOTAL PROTEIN 6.6 gm/dL (6.4-8.2)
[2019-12-17 08:00] VITALS: BP 122/70
--- NOTE | 2019-12-17 08:25 | NUR ---
ON ASSESSMENT PATIENT IS ALERT, ORIENTED, SMILING MORE THAN YESTERDAY, JOKING. ABLE TO TELL ME WHERE SHE IS AND WHY SHE'S HERE. SHE STILL HAS DYSPHAGIA. CARAFATE GIVEN, MADE INTO A SLURRY. NO TACHYCARDIA. SOME WEAKNESS, NO TREMORS. IV FLUIDS CONTINUE. SEE ALL APPROPRIATE INTERVENTIONS.
--- NOTE | 2019-12-17 11:16 | NUR ---
ATIVAN 0.5MG IV PER PT REQUEST FOR "ANYTHING I CAN HAVE" FOR ANXIETY.
--- NOTE | 2019-12-17 11:45 | NUR ---
DR WANG UPDATED ON AM LABS. ORDERS RECEIVED.
[2019-12-17 12:00] VITALS: BP 114/69
--- NOTE | 2019-12-17 12:00 | NUR ---
ATIVAN WAS EFFECTIVE TO ALLOW PT TO SLEEP UNTIL HER LUNCH ARRIVED.
--- NOTE | 2019-12-17 13:27 | NUR ---
PT HAS BEEN UP TO BSC X 2 FOR MUSHY/LIQUID BM. SHE DID EAT BETTER FOR LUNCH, ALTHOUGH SHE MOSTLY ONLY ORDERS LIQUIDS/ICE CREAM. WHEN SHE TAKES ANY PILLS SHE DRAMATICALLY GRABS HER THROAT ON SWALLOWING. ENCOURAGE PT NOT TO DRINK WATER AFTER TAKING THE MAALOX.
--- NOTE | 2019-12-17 14:22 | NUR ---
PT SLEEPING EASILY AT THIS TIME.
[2019-12-17 16:00] VITALS: BP 74/48
[2019-12-17 17:29] VITALS: BP 90/58
--- NOTE | 2019-12-17 19:50 | NUR ---
ATIVAN 0.5MG IV GIVEN FOR C/O'S ANXIETY. WILL MONITOR.
[2019-12-17 20:00] VITALS: BP 92/50
--- NOTE | 2019-12-17 20:18 | NUR ---
RESTING INBED WITH EYES CLOSED. APPEARS TO BE SLEEPING. ALERT, ORIENTED AND PLEASANT WHEN AWAKE. IV FLUIDS INFUSING WELL. NO DISTRESS NOTED. BED ALARM INTACT.
--- NOTE | 2019-12-17 20:50 | NUR ---
EARLIER IV ATIVAN EFFECTIVE.
[2019-12-18] VITALS: BP 99/52
--- NOTE | 2019-12-18 00:21 | NUR ---
RESTING IN BED WITH EYES CLOSED. APPEARS TO BE SLEEPING.
--- NOTE | 2019-12-18 06:11 | NUR ---
REMAINS SLEEPING WIHTOUT DISTRESS. CONDITION GUARDED.
[2019-12-18 08:00] VITALS: BP 132/67
--- NOTE | 2019-12-18 08:16 | NUR ---
DR WANG WAS IN - PATIENT TO BE DISCHARGED LATER TODAY
[2019-12-18] MEDS ORDERED: Carafate1 GM PO (08:23)
[2019-12-18] MEDS ORDERED: PROPRANOLOL HCL10 MG PO (08:23)
[2019-12-18] MEDS ORDERED: CHLORDIAZEPOXID25 M1 PO (08:23)
--- NOTE | 2019-12-18 09:00 | NUR ---
Undertaker Assistant in to talk to patient. Patient states lives at home alone with her family checking in on her. There are 28 steps in the home. Physician: Dr. Jorge Tipton (she doesn't want him notified that she was in the hospital) Pharmacy: [facility] Home health services: none Patient's level of ADLs: INDEPENDENT Patient has working utilities: yes DME: none Follow-up physician's appointment after d/c: she prefers to make her own follow up appt after discharge Does patient want to access PORTAL?: no Discharge plan discussed with patient. She lives at home alone with her family checking in on her. She is independent in her ADLs and ambulation. Discussed home health care services and she declines. She states she does see Viviane Alford and [facility] for counseling and therapy. Discussed discharge planning with Dr. Hays. Patient would like to have the vivitrol shot at [facility] in [place]. CM will reach out for appt. When medically stable she will be discharged to home. She states she will take a cab home. JAGJIT DURON
--- NOTE | 2019-12-18 09:38 | NUR ---
Spoke to Yeny at [facility] in [place]. Their offices are located in [place] and [place]. Patient prefers to stay in [place]. Spoke to Concetta at [facility]. Appt made with Shahida Merchant for med management Wednesday, 12/26, at 1100. The vivitrol injection will have to be ordered. Patient to bring insurance and photo ID. Concetta asked that demos and recent labs be faxed to [phone].
--- NOTE | 2019-12-18 09:45 | NUR ---
Discussed with patient [facility] no longer having an office in [place]. Their offices are in [place] and [place]. Appt made with [facility]. Given address and appt time. Patient would like to see about daily counseling. Spoke to Aleja in [facility] who will bring patient information.
--- NOTE | 2019-12-18 10:12 | NUR ---
DC INSTRUCTIONS GIVEN TO PT AND SHE VERBALIZED UNDERSTANDING
--- NOTE | 2019-12-18 10:40 | NUR ---
PT WALKED TO FRONT LOBBY TO WAIT FOR CAB
--- NOTE | 2019-12-18 12:43 | NUR ---
Faxed demos and labs to [facility] as requested per Concetta.
== END 2019-12-18 10:40 | disposition home or self-care (01) | DRG 380 ==
LOC: ED 18:10 → ICCU 20:22
PROVIDERS: Emergency Medicine; Internal Medicine Nephrology; ADMIT Internal Medicine; ATTEND Internal Medicine
PROC: 05HB33Z Insertion of Infusion Device into Right Basilic Vein, Percutaneous Approach (ICD-10-PCS; principal; 2019-12-15)
PROC: 0DB78ZX Excision of Stomach, Pylorus, Via Natural or Artificial Opening Endoscopic, Diagnostic (ICD-10-PCS; principal; 2019-12-15)
PROC: 0DD58ZX Extraction of Esophagus, Via Natural or Artificial Opening Endoscopic, Diagnostic (ICD-10-PCS; principal; 2019-12-15)
DX: K22.10 Ulcer of esophagus without bleeding (principal); E43 Unspecified severe protein-calorie malnutrition; N17.9 Acute kidney failure, unspecified; E87.3 Alkalosis; I85.00 Esophageal varices without bleeding; K76.6 Portal hypertension; F10.239 Alcohol dependence with withdrawal, unspecified; K86.1 Other chronic pancreatitis; Z68.1 Body mass index [BMI] 19.9 or less, adult; E87.2 Acidosis; N18.2 Chronic kidney disease, stage 2 (mild); K25.9 Gastric ulcer, unspecified as acute or chronic, without hemorrhage or perforation; E83.39 Other disorders of phosphorus metabolism; R74.01 Elevation of levels of liver transaminase levels; E87.6 Hypokalemia; K29.20 Alcoholic gastritis without bleeding; F32.9 Major depressive disorder, single episode, unspecified; F17.210 Nicotine dependence, cigarettes, uncomplicated; E11.9 Type 2 diabetes mellitus without complications; K21.9 Gastro-esophageal reflux disease without esophagitis; K70.30 Alcoholic cirrhosis of liver without ascites; D72.829 Elevated white blood cell count, unspecified; R00.0 Tachycardia, unspecified; E83.42 Hypomagnesemia; K76.0 Fatty (change of) liver, not elsewhere classified; K44.9 Diaphragmatic hernia without obstruction or gangrene; K57.30 Diverticulosis of large intestine without perforation or abscess without bleeding; F10.229 Alcohol dependence with intoxication, unspecified; K57.90 Diverticulosis of intestine, part unspecified, without perforation or abscess without bleeding; F41.1 Generalized anxiety disorder; Z87.11 Personal history of peptic ulcer disease; Z87.440 Personal history of urinary (tract) infections; Z83.3 Family history of diabetes mellitus; Z82.49 Family history of ischemic heart disease and other diseases of the circulatory system; Z82.3 Family history of stroke; Z82.0 Family history of epilepsy and other diseases of the nervous system

== ENCOUNTER 2020-01-05 13:31 | Emergency (ER) | payer MEDICARE, MEDICAID ==
[~2020-01-05] VITALS: Ht 154.9 cm; Wt 49.9 kg
[~2020-01-05 13:31] MED LIST changes: +CHLORDIAZEPOXID25 M1 PO; +PROPRANOLOL HCL10 MG PO
[2020-01-05] MEDS ORDERED: CEPHALEXIN500 M1 PO (15:10)
== END 2020-01-05 15:12 | disposition home or self-care (01) ==
LOC: ED 13:31
DX: I80.9 Phlebitis and thrombophlebitis of unspecified site (principal); Z79.899 Other long term (current) drug therapy; Z79.2 Long term (current) use of antibiotics

== ENCOUNTER 2020-01-29 11:18 | Emergency (ER) | payer MEDICARE, MEDICAID ==
[~2020-01-29 11:18] MED LIST changes: +CEPHALEXIN500 M1 PO
== END 2020-01-29 11:59 | disposition left against medical advice (07) ==
LOC: ED 11:18
DX: R10.9 Unspecified abdominal pain (principal); Z53.21 Procedure and treatment not carried out due to patient leaving prior to being seen by health care provider

== ENCOUNTER → 2020-05-06 | Outpatient (CLI) | payer OTHER, MEDICAID ==
[2020-05-06 13:45] LABS: HEMATOCRIT 44.4 % (37.0-47.0); MEAN CELL VOLUME 91.4 fl (81.0-99.0); MEAN CORPUSCULAR HGB 29.8 pg (27.0-31.0); MEAN CORPUSCULAR HGB CONC 32.7 g/dl (33.0-37.0); MEAN PLATELET VOLUME 9.7 fl (9.6-12.3); RED BLOOD COUNT 4.86 10*6/uL (4.10-5.10); RED CELL DISTRI WIDTH 12.9 % (0-14.5)
[2020-05-06 13:46] LABS: ALKALINE PHOSPHATASE 84 U/L (45-117); BUN 23 mg/dl (7-24); CHLORIDE 103 mmol/L (98-107); CHOLESTEROL 213 mg/dL (<200); HDL CHOLESTEROL 80 mg/dl (40-60); LDL CHOLESTEROL 104 mg/dL (9-159); SGOT/AST 22 IU/L (3-35); SGPT/ALT 28 U/L (12-78); SODIUM 137 mmol/L (136-145); TOTAL PROTEIN 8.2 gm/dL (6.4-8.2); TRIGLYCERIDES 147 mg/dl (<150); VLDL CHOLESTEROL 29 mg/dL (6-40)
[2020-05-06 14:09] LABS: VITAMIN D, 25-HYDROXY 35.5 ng/mL (30-100)
== END | disposition home or self-care (01) ==
LOC: LAB 12:43
PROVIDERS: ATTEND Family Medicine
DX: E74.00 Glycogen storage disease, unspecified (principal); F41.1 Generalized anxiety disorder; F10.10 Alcohol abuse, uncomplicated; E55.9 Vitamin D deficiency, unspecified; E78.00 Pure hypercholesterolemia, unspecified; R53.83 Other fatigue

== ENCOUNTER → 2020-05-24 | Outpatient (CLI) | payer OTHER, MEDICAID | END | disposition home or self-care (01) | LOC: RAD 08:41 | PROVIDERS: ATTEND Family Medicine | DX: R05 Cough (principal); F17.200 Nicotine dependence, unspecified, uncomplicated ==

== ENCOUNTER → 2020-10-25 | Outpatient (CLI) | payer OTHER, MEDICAID ==
[2020-10-25 11:03] LABS: CREATININE 0.91 mg/dL (0.55-1.02)
== END | disposition home or self-care (01) ==
LOC: LAB 10:34 → CT 11:00
PROVIDERS: ATTEND Family Medicine
DX: K44.9 Diaphragmatic hernia without obstruction or gangrene (principal); K57.30 Diverticulosis of large intestine without perforation or abscess without bleeding; F10.99 Alcohol use, unspecified with unspecified alcohol-induced disorder

== ENCOUNTER → 2020-11-14 | Outpatient (CLI) | payer OTHER, MEDICAID ==
[~2020-11-14] MED LIST changes: +NEURONTIN400 MG PO
[2020-11-14 12:36] LABS: ALBUMIN 4.3 gm/dl (3.1-4.5); ALKALINE PHOSPHATASE 78 U/L (45-117); BUN 25 mg/dl (7-24); CHLORIDE 106 mmol/L (98-107); CHOLESTEROL 218 mg/dL (<200); CREATININE 1.01 mg/dL (0.55-1.02); LDL CHOLESTEROL 102 mg/dL (9-159); POTASSIUM 4.4 mmol/L (3.5-5.1); SGOT/AST 23 IU/L (3-35); SGPT/ALT 28 U/L (12-78); SODIUM 137 mmol/L (136-145); TOTAL PROTEIN 8.3 gm/dL (6.4-8.2); TRIGLYCERIDES 252 mg/dl (<150)
[2020-11-14 12:44] LABS: INTERNATIONAL NORM RATIO 0.9 (2.0-3.5)
[2020-11-14 13:00] LABS: HEMATOCRIT 45.3 % (37.0-47.0); MEAN CORPUSCULAR HGB 30.4 pg (27.0-31.0); RED BLOOD COUNT 4.77 10*6/uL (4.10-5.10); RED CELL DISTRI WIDTH 13.1 % (0-14.5)
[2020-11-14 13:19] LABS: VITAMIN D, 25-HYDROXY 29.4 ng/mL (30-100)
== END | disposition home or self-care (01) ==
LOC: LAB 12:03
PROVIDERS: ATTEND Family Medicine
DX: Z01.818 Encounter for other preprocedural examination (principal); K46.9 Unspecified abdominal hernia without obstruction or gangrene; E55.9 Vitamin D deficiency, unspecified; E78.00 Pure hypercholesterolemia, unspecified; E74.00 Glycogen storage disease, unspecified; F41.1 Generalized anxiety disorder; G62.9 Polyneuropathy, unspecified; Z79.01 Long term (current) use of anticoagulants

== ENCOUNTER → 2020-11-28 | Outpatient (CLI) | payer OTHER, MEDICAID ==
[~2020-11-28] VITALS: Ht 154.9 cm; Wt 54.4 kg
[2020-11-28 13:19] VITALS: BP 123/66
== END | disposition home or self-care (01) ==
LOC: COVID19 12:00 → SDC 12:30 → COVID19 12-02 00:37 → SDC 12-02 09:30 → EDSTATUS 12-02 12:30
PROVIDERS: ATTEND Surgery
DX: K43.2 Incisional hernia without obstruction or gangrene (principal); Z20.822 Contact with and (suspected) exposure to COVID-19; Z53.8 Procedure and treatment not carried out for other reasons

== ENCOUNTER 2021-01-02 04:40 | Inpatient (IN) | payer OTHER, MEDICAID ==
[2020-12-30 13:07] VITALS: BP 114/78
[~2021-01-02] VITALS: Ht 154.9 cm; Wt 59.9 kg
[2021-01-02] VITALS (7 sets, daily range): BP systolic 101–118; BP diastolic 52–67
[2021-01-03] VITALS: BP 99/58
[2021-01-03 04:00] VITALS: BP 98/54
[2021-01-03 07:03] LABS: BASO % 0.2 % (0.0-1.0); EOS # 0.1 10*3/uL (0.0-0.4); EOS % 0.8 % (1.0-4.0); HEMATOCRIT 35.4 % (37.0-47.0); LYMPH # 1.6 10*3/uL (1.3-4.4); MEAN CELL VOLUME 94.4 fl (81.0-99.0); MEAN CORPUSCULAR HGB 30.1 pg (27.0-31.0); MEAN CORPUSCULAR HGB CONC 31.9 g/dl (33.0-37.0); MEAN PLATELET VOLUME 9.8 fl (9.6-12.3); MONO # 0.7 10*3/uL (0.1-1.0); MONO % 7.6 % (3.0-9.0); NEUT # 6.9 10*3/uL (2.3-7.9); PLATELET COUNT AUTOMATED 223 10*3/uL (130-400); RED BLOOD COUNT 3.75 10*6/uL (4.10-5.10); RED CELL DISTRI WIDTH 12.6 % (0-14.5); WHITE BLOOD COUNT 9.3 10*3/uL (4.8-10.8)
[2021-01-03 07:27] LABS: BUN 15 mg/dl (7-24); CHLORIDE 111 mmol/L (98-107); POTASSIUM 4.1 mmol/L (3.5-5.1); SODIUM 140 mmol/L (136-145)
[2021-01-03 07:28] LABS: CREATININE 0.59 mg/dL (0.55-1.02)
[2021-01-03 08:00] VITALS: BP 100/56
[2021-01-03 16:00] VITALS: BP 112/52
[2021-01-04] VITALS: BP 101/49
[2021-01-04 08:00] VITALS: BP 106/55
[2021-01-04 12:00] VITALS: BP 99/56
[2021-01-04 16:00] VITALS: BP 108/61
[2021-01-04 20:00] VITALS: BP 120/67
[2021-01-05 01:06] VITALS: BP 98/54
[2021-01-05 07:50] VITALS: BP 120/64
[2021-01-05 16:00] VITALS: BP 132/87
[2021-01-05 20:00] VITALS: BP 112/59
[2021-01-06] VITALS: BP 119/71
[2021-01-06 08:00] VITALS: BP 104/78
[2021-01-06] MEDS ORDERED: Colace PO (08:09)
== END 2021-01-06 11:11 | disposition home or self-care (01) | DRG 337 ==
LOC: SDC 04:40 → 5E 14:45
PROVIDERS: ADMIT Internal Medicine; ATTEND Internal Medicine
PROC: 0DNW4ZZ Release Peritoneum, Percutaneous Endoscopic Approach (ICD-10-PCS; principal; 2021-01-02)
PROC: 0DNU4ZZ Release Omentum, Percutaneous Endoscopic Approach (ICD-10-PCS; 2021-01-02)
PROC: 0WUF0JZ Supplement Abdominal Wall with Synthetic Substitute, Open Approach (ICD-10-PCS; 2021-01-02)
PROC: 0WJF4ZZ Inspection of Abdominal Wall, Percutaneous Endoscopic Approach (ICD-10-PCS; 2021-01-02)
PROC: 0KXL0Z6 Transfer Left Abdomen Muscle, Transverse Rectus Abdominis Myocutaneous Flap, Open Approach (ICD-10-PCS; 2021-01-02)
PROC: 3E0T3BZ Introduction of Anesthetic Agent into Peripheral Nerves and Plexi, Percutaneous Approach (ICD-10-PCS; 2021-01-02)
PROC: 0KXK0Z6 Transfer Right Abdomen Muscle, Transverse Rectus Abdominis Myocutaneous Flap, Open Approach (ICD-10-PCS; 2021-01-02)
DX: K43.0 Incisional hernia with obstruction, without gangrene (principal); Z20.822 Contact with and (suspected) exposure to COVID-19; G89.4 Chronic pain syndrome; F17.210 Nicotine dependence, cigarettes, uncomplicated; K66.0 Peritoneal adhesions (postprocedural) (postinfection); K57.90 Diverticulosis of intestine, part unspecified, without perforation or abscess without bleeding; K59.00 Constipation, unspecified; Z71.6 Tobacco abuse counseling

== ENCOUNTER → 2021-04-01 | Outpatient (CLI) | payer OTHER, MEDICAID ==
[~2021-04-01] MED LIST changes: +Colace PO
[2021-04-01 09:09] LABS: CREATININE 0.85 mg/dL (0.55-1.02)
== END | disposition home or self-care (01) ==
LOC: CT 03-27 08:00 → LAB 08:38 → CT 09:00
PROVIDERS: ATTEND Surgery
DX: K43.9 Ventral hernia without obstruction or gangrene (principal); K44.9 Diaphragmatic hernia without obstruction or gangrene; K57.30 Diverticulosis of large intestine without perforation or abscess without bleeding; K43.0 Incisional hernia with obstruction, without gangrene

== ENCOUNTER → 2021-05-16 | Outpatient (CLI) | payer OTHER, MEDICAID | END | disposition home or self-care (01) | LOC: RAD 10:05 | PROVIDERS: ATTEND Family Medicine | DX: M25.531 Pain in right wrist (principal) ==

== ENCOUNTER 2021-07-23 19:00 | Emergency (ER) | payer OTHER, MEDICAID ==
[~2021-07-23] VITALS: Ht 154.9 cm; Wt 56.4 kg
== END 2021-07-23 19:21 | disposition left against medical advice (07) ==
LOC: ED 19:00
DX: R10.84 Generalized abdominal pain (principal); Z90.89 Acquired absence of other organs; Z98.890 Other specified postprocedural states; F17.200 Nicotine dependence, unspecified, uncomplicated

== ENCOUNTER 2021-09-29 17:23 | Emergency (ER) | payer OTHER, MEDICAID ==
[~2021-09-29] VITALS: Ht 154.9 cm; Wt 57.6 kg
[2021-09-29 18:58] LABS: BASO # 0.1 10*3/uL (0.0-0.1); BASO % 0.5 % (0.0-1.0); EOS # 0.2 10*3/uL (0.0-0.4); EOS % 1.8 % (1.0-4.0); HEMATOCRIT 42.2 % (37.0-47.0); LYMPH # 2.4 10*3/uL (1.3-4.4); LYMPH % 21.4 % (27.0-41.0); MEAN CELL VOLUME 86.8 fl (81.0-99.0); MEAN CORPUSCULAR HGB CONC 33.4 g/dl (33.0-37.0); MEAN PLATELET VOLUME 9.4 fl (9.6-12.3); MONO # 0.8 10*3/uL (0.1-1.0); MONO % 7.5 % (3.0-9.0); NEUT # 7.7 10*3/uL (2.3-7.9); NEUT % 68.4 % (47.0-73.0); PLATELET COUNT AUTOMATED 236 10*3/uL (130-400); RED BLOOD COUNT 4.86 10*6/uL (4.10-5.10); RED CELL DISTRI WIDTH 13.2 % (0-14.5); WHITE BLOOD COUNT 11.3 10*3/uL (4.8-10.8)
[2021-09-29 19:31] LABS: CREATININE 1.32 mg/dL (0.55-1.02); POTASSIUM 3.4 mmol/L (3.5-5.1); TOTAL PROTEIN 7.8 gm/dL (6.4-8.2)
[2021-09-29 21:05] LABS: BILIRUBIN Negative (Negative); BLOOD Negative (Negative); CLARITY Clear (Clear); COLOR Yellow (Yellow); GLUCOSE Negative (Negative); KETONE Negative (Negative); LEUKO ESTERASE Negative (Negative); NITRITE Negative (Negative); PH 5.5 (4.5-8.0); SPECIFIC GRAVITY <= 1.005 (1.001-1.030); UROBILINOGEN 0.2 E.U./dl (0.0-1.0)
[2021-09-29 21:20] LABS: BACTERIA 1+
[2021-09-29 21:21] LABS: EPITHELIAL CELLS 0-2
== END 2021-09-29 23:53 | disposition home or self-care (01) ==
LOC: ED 17:23
PROVIDERS: Physician Assistant
DX: E86.0 Dehydration (principal); R35.0 Frequency of micturition; R10.9 Unspecified abdominal pain; R82.998 Other abnormal findings in urine; F17.200 Nicotine dependence, unspecified, uncomplicated; Z79.899 Other long term (current) drug therapy; Z98.84 Bariatric surgery status; Z90.89 Acquired absence of other organs

== ENCOUNTER → 2021-10-10 | Outpatient (CLI) | payer OTHER, MEDICAID ==
[2021-10-10 07:45] LABS: HEMATOCRIT 39.1 % (37.0-47.0); MEAN CELL VOLUME 90.1 fl (81.0-99.0); MEAN CORPUSCULAR HGB 29.7 pg (27.0-31.0); MEAN PLATELET VOLUME 9.8 fl (9.6-12.3); RED BLOOD COUNT 4.34 10*6/uL (4.10-5.10); RED CELL DISTRI WIDTH 13.7 % (0-14.5); WHITE BLOOD COUNT 7.7 10*3/uL (4.8-10.8)
[2021-10-10 08:15] LABS: ALKALINE PHOSPHATASE 88 U/L (45-117); BUN 20 mg/dl (7-24); CHLORIDE 112 mmol/L (98-107); CREATININE 0.83 mg/dL (0.55-1.02); POTASSIUM 3.9 mmol/L (3.5-5.1); SGOT/AST 21 IU/L (3-35); SGPT/ALT 22 U/L (12-78); SODIUM 143 mmol/L (136-145); TOTAL PROTEIN 7.4 gm/dL (6.4-8.2)
== END | disposition home or self-care (01) ==
LOC: LAB 07:09
PROVIDERS: ATTEND Family Medicine
DX: R53.83 Other fatigue (principal); K21.9 Gastro-esophageal reflux disease without esophagitis; E86.0 Dehydration; R10.9 Unspecified abdominal pain; G60.9 Hereditary and idiopathic neuropathy, unspecified; F41.1 Generalized anxiety disorder; E74.00 Glycogen storage disease, unspecified

== ENCOUNTER 2021-12-04 14:29 | Emergency (ER) | payer OTHER, MEDICAID ==
[~2021-12-04] VITALS: Wt 58.5 kg
[2021-12-04 15:15] LABS: BASO % 0.5 % (0.0-1.0); EOS # 0.1 10*3/uL (0.0-0.4); EOS % 2.2 % (1.0-4.0); HEMATOCRIT 36.6 % (37.0-47.0); LYMPH # 1.2 10*3/uL (1.3-4.4); LYMPH % 20.9 % (27.0-41.0); MEAN CELL VOLUME 92.4 fl (81.0-99.0); MEAN CORPUSCULAR HGB 30.3 pg (27.0-31.0); MEAN CORPUSCULAR HGB CONC 32.8 g/dl (33.0-37.0); MEAN PLATELET VOLUME 9.7 fl (9.6-12.3); MONO # 0.6 10*3/uL (0.1-1.0); NEUT # 3.8 10*3/uL (2.3-7.9); NEUT % 65.9 % (47.0-73.0); PLATELET COUNT AUTOMATED 189 10*3/uL (130-400); RED BLOOD COUNT 3.96 10*6/uL (4.10-5.10); RED CELL DISTRI WIDTH 13.7 % (0-14.5); WHITE BLOOD COUNT 5.8 10*3/uL (4.8-10.8)
[2021-12-04 15:31] LABS: ACT PARTIAL THROMBO TIME 28.2 SECONDS (20.0-32.1); INTERNATIONAL NORM RATIO 0.9 (2.0-3.5)
[2021-12-04 15:44] LABS: ALKALINE PHOSPHATASE 80 U/L (45-117); BUN 23 mg/dl (7-24); CHLORIDE 111 mmol/L (98-107); CREATININE 0.85 mg/dL (0.55-1.02); POTASSIUM 3.9 mmol/L (3.5-5.1); SGOT/AST 20 IU/L (3-35); SGPT/ALT 25 U/L (12-78); SODIUM 142 mmol/L (136-145); TOTAL PROTEIN 6.9 gm/dL (6.4-8.2)
[2021-12-04] MEDS ORDERED: HYDROCODONE-AC1 EAC1 PO (21:08)
== END 2021-12-04 21:11 | disposition home or self-care (01) ==
LOC: ED 14:29
PROVIDERS: Emergency Medicine
DX: S70.11XA Contusion of right thigh, initial encounter (principal); Z90.89 Acquired absence of other organs; Z98.890 Other specified postprocedural states; Z87.891 Personal history of nicotine dependence; W18.39XA Other fall on same level, initial encounter; Y93.89 Activity, other specified; Y92.89 Other specified places as the place of occurrence of the external cause; Y99.8 Other external cause status

== ENCOUNTER 2022-02-18 16:49 | Emergency (ER) | payer OTHER, MEDICAID ==
[~2022-02-18] VITALS: Ht 154.9 cm; Wt 59.0 kg
[~2022-02-18 16:49] MED LIST changes: +HYDROCODONE-AC1 EAC1 PO
== END 2022-02-18 17:26 | disposition home or self-care (01) ==
LOC: ED 16:49
DX: R11.10 Vomiting, unspecified (principal); Z53.21 Procedure and treatment not carried out due to patient leaving prior to being seen by health care provider

== ENCOUNTER → 2022-04-29 | Outpatient (CLI) | payer OTHER, MEDICAID ==
[2022-04-29 13:39] LABS: BASO # 0.1 10*3/uL (0.0-0.1); BASO % 0.8 % (0.0-1.0); EOS # 0.2 10*3/uL (0.0-0.4); EOS % 2.6 % (1.0-4.0); HEMATOCRIT 41.1 % (37.0-47.0); LYMPH # 1.7 10*3/uL (1.3-4.4); LYMPH % 26.2 % (27.0-41.0); MEAN CELL VOLUME 95.4 fl (81.0-99.0); MEAN CORPUSCULAR HGB 30.6 pg (27.0-31.0); MEAN CORPUSCULAR HGB CONC 32.1 g/dl (33.0-37.0); MEAN PLATELET VOLUME 9.4 fl (9.6-12.3); MONO # 0.5 10*3/uL (0.1-1.0); NEUT % 62.1 % (47.0-73.0); PLATELET COUNT AUTOMATED 241 10*3/uL (130-400); RED BLOOD COUNT 4.31 10*6/uL (4.10-5.10); RED CELL DISTRI WIDTH 14.6 % (0-14.5); WHITE BLOOD COUNT 6.5 10*3/uL (4.8-10.8)
[2022-04-29 13:52] LABS: ALKALINE PHOSPHATASE 72 U/L (46-116); BUN 11 mg/dl (9-23); CHLORIDE 104 mmol/L (98-107); SGPT/ALT 19 U/L (10-49); TOTAL PROTEIN 7.4 gm/dL (6.0-8.0)
[2022-04-30 05:06] LABS: HBSAG Negative (Negative); HEP B CORE AB, IGM Negative (Negative); HEPATITIS C ANTIBODY Non Reactive (Non Reactive)
== END | disposition home or self-care (01) ==
LOC: LAB 13:12
PROVIDERS: ATTEND Nurse Practitioner Family
DX: Z11.59 Encounter for screening for other viral diseases (principal); R53.83 Other fatigue; F11.20 Opioid dependence, uncomplicated

== ENCOUNTER 2022-06-03 12:34 | Emergency (ER) | payer OTHER, MEDICAID ==
[~2022-06-03] VITALS: Ht 154.9 cm; Wt 57.6 kg
[2022-06-03] MEDS ORDERED: ABILIFY2 MG PO (13:14)
[2022-06-03] MEDS ORDERED: VIVITROL380 MG IM (13:15)
[2022-06-03 14:31] LABS: BASO # 0.1 10*3/uL (0.0-0.1); BASO % 0.9 % (0.0-1.0); EOS # 0.6 10*3/uL (0.0-0.4); EOS % 8.2 % (1.0-4.0); HEMATOCRIT 40.2 % (37.0-47.0); LYMPH # 1.8 10*3/uL (1.3-4.4); LYMPH % 23.8 % (27.0-41.0); MEAN CELL VOLUME 93.9 fl (81.0-99.0); MEAN CORPUSCULAR HGB 30.1 pg (27.0-31.0); MEAN CORPUSCULAR HGB CONC 32.1 g/dl (33.0-37.0); MEAN PLATELET VOLUME 9.5 fl (9.6-12.3); MONO # 0.5 10*3/uL (0.1-1.0); MONO % 6.6 % (3.0-9.0); NEUT # 4.7 10*3/uL (2.3-7.9); NEUT % 60.2 % (47.0-73.0); PLATELET COUNT AUTOMATED 299 10*3/uL (130-400); RED BLOOD COUNT 4.28 10*6/uL (4.10-5.10); RED CELL DISTRI WIDTH 14.1 % (0-14.5); WHITE BLOOD COUNT 7.7 10*3/uL (4.8-10.8)
[2022-06-03 14:48] LABS: ALKALINE PHOSPHATASE 78 U/L (46-116); BUN 12 mg/dl (9-23); CHLORIDE 104 mmol/L (98-107); LIPASE 29 U/L (12-53); POTASSIUM 3.6 mmol/L (3.4-5.1); SGPT/ALT 15 U/L (10-49); TOTAL PROTEIN 7.5 gm/dL (6.0-8.0)
== END 2022-06-03 16:07 | disposition home or self-care (01) ==
LOC: ED 12:34
PROVIDERS: Physician Assistant
DX: H11.31 Conjunctival hemorrhage, right eye (principal); R03.0 Elevated blood-pressure reading, without diagnosis of hypertension; K21.9 Gastro-esophageal reflux disease without esophagitis; Z79.899 Other long term (current) drug therapy; Z90.89 Acquired absence of other organs; Z98.890 Other specified postprocedural states; Z87.891 Personal history of nicotine dependence

== ENCOUNTER 2022-12-17 23:04 | Emergency (ER) | payer OTHER, MEDICAID ==
[~2022-12-17] VITALS: Ht 154.9 cm; Wt 56.7 kg
[~2022-12-17 23:04] MED LIST changes: +ABILIFY2 MG PO; +VIVITROL380 MG IM
== END 2022-12-17 23:37 | disposition left against medical advice (07) ==
LOC: ED 23:04
DX: R56.9 Unspecified convulsions (principal); R10.9 Unspecified abdominal pain; T42.6X5A Adverse effect of other antiepileptic and sedative-hypnotic drugs, initial encounter; F41.9 Anxiety disorder, unspecified; F32.A Depression, unspecified; K21.9 Gastro-esophageal reflux disease without esophagitis; Z90.89 Acquired absence of other organs; Z98.890 Other specified postprocedural states; F17.200 Nicotine dependence, unspecified, uncomplicated; Y92.89 Other specified places as the place of occurrence of the external cause

== ENCOUNTER 2023-01-15 16:31 | Emergency (ER) | payer OTHER, MEDICAID ==
[~2023-01-15] VITALS: Wt 58.5 kg
[2023-01-15 17:09] LABS: BASO % 0.8 % (0.0-1.0); EOS # 0.2 10*3/uL (0.0-0.4); EOS % 4.1 % (1.0-4.0); HEMATOCRIT 38.2 % (37.0-47.0); LYMPH # 2.3 10*3/uL (1.3-4.4); LYMPH % 45.3 % (27.0-41.0); MEAN CELL VOLUME 85.8 fl (81.0-99.0); MEAN CORPUSCULAR HGB 27.9 pg (27.0-31.0); MEAN CORPUSCULAR HGB CONC 32.5 g/dl (33.0-37.0); MEAN PLATELET VOLUME 9.6 fl (9.6-12.3); MONO # 0.4 10*3/uL (0.1-1.0); MONO % 7.9 % (3.0-9.0); NEUT # 2.1 10*3/uL (2.3-7.9); NEUT % 41.3 % (47.0-73.0); PLATELET COUNT AUTOMATED 255 10*3/uL (130-400); RED BLOOD COUNT 4.45 10*6/uL (4.10-5.10); RED CELL DISTRI WIDTH 15.5 % (0-14.5); WHITE BLOOD COUNT 5.2 10*3/uL (4.8-10.8)
[2023-01-15 17:47] LABS: ALKALINE PHOSPHATASE 76 U/L (46-116); BUN 8 mg/dl (9-23); CHLORIDE 116 mmol/L (98-107); POTASSIUM 3.6 mmol/L (3.4-5.1); SGPT/ALT 21 U/L (5-49); TOTAL PROTEIN 7.3 gm/dL (6.0-8.0)
[2023-01-15 17:49] LABS: ETHYL ALCOHOL 403.2 mg/dl (<3)
[2023-01-15 19:29] LABS: BILIRUBIN Negative (Negative); BLOOD Negative (Negative); CLARITY Clear (Clear); COLOR Yellow (Yellow); GLUCOSE Negative (Negative); KETONE Negative (Negative); LEUKO ESTERASE 2+ (Negative); NITRITE Positive (Negative); UROBILINOGEN 0.2 E.U./dl (0.0-1.0)
[2023-01-15 19:50] LABS: BACTERIA 3+
[2023-01-15] MEDS ORDERED: SEPTDS PO (19:54)
== END 2023-01-16 06:40 | disposition home or self-care (01) ==
LOC: ED 16:31
PROVIDERS: Physician Assistant Medical
DX: N39.0 Urinary tract infection, site not specified (principal); R78.0 Finding of alcohol in blood; F41.9 Anxiety disorder, unspecified; F32.A Depression, unspecified; K21.9 Gastro-esophageal reflux disease without esophagitis; Z90.89 Acquired absence of other organs; Z98.890 Other specified postprocedural states; F17.290 Nicotine dependence, other tobacco product, uncomplicated; Z79.899 Other long term (current) drug therapy

== ENCOUNTER 2023-01-28 21:59 | Emergency (ER) | payer OTHER, MEDICAID ==
[~2023-01-28] VITALS: Ht 162.5 cm; Wt 55.3 kg
[~2023-01-28 21:59] MED LIST changes: +SEPTDS PO
[2023-01-28 22:41] LABS: BASO # 0.1 10*3/uL (0.0-0.1); BASO % 1.2 % (0.0-1.0); EOS # 0.2 10*3/uL (0.0-0.4); EOS % 3.3 % (1.0-4.0); HEMATOCRIT 33.9 % (37.0-47.0); LYMPH # 2.6 10*3/uL (1.3-4.4); LYMPH % 44.1 % (27.0-41.0); MEAN CELL VOLUME 83.1 fl (81.0-99.0); MEAN CORPUSCULAR HGB 27.7 pg (27.0-31.0); MEAN CORPUSCULAR HGB CONC 33.3 g/dl (33.0-37.0); MEAN PLATELET VOLUME 8.8 fl (9.6-12.3); MONO # 0.6 10*3/uL (0.1-1.0); MONO % 9.8 % (3.0-9.0); NEUT # 2.4 10*3/uL (2.3-7.9); NEUT % 41.4 % (47.0-73.0); PLATELET COUNT AUTOMATED 348 10*3/uL (130-400); RED BLOOD COUNT 4.08 10*6/uL (4.10-5.10); WHITE BLOOD COUNT 5.8 10*3/uL (4.8-10.8)
[2023-01-28 23:19] LABS: ALKALINE PHOSPHATASE 79 U/L (46-116); BUN 13 mg/dl (9-23); CHLORIDE 108 mmol/L (98-107); POTASSIUM 3.3 mmol/L (3.4-5.1); SGPT/ALT 12 U/L (5-49); TOTAL PROTEIN 7.5 gm/dL (6.0-8.0)
[2023-01-28 23:20] LABS: ETHYL ALCOHOL 331.6 mg/dl (<3)
== END 2023-01-29 01:50 | disposition home or self-care (01) ==
LOC: ED 21:59
PROVIDERS: Nurse Practitioner
DX: M54.50 Low back pain, unspecified (principal); F10.129 Alcohol abuse with intoxication, unspecified; R10.2 Pelvic and perineal pain; F41.9 Anxiety disorder, unspecified; F32.A Depression, unspecified; K21.9 Gastro-esophageal reflux disease without esophagitis; Z90.89 Acquired absence of other organs; Z98.890 Other specified postprocedural states; F17.200 Nicotine dependence, unspecified, uncomplicated; Z79.899 Other long term (current) drug therapy; Y90.0 Blood alcohol level of less than 20 mg/100 ml

== ENCOUNTER → 2023-02-26 | Outpatient (CLI) | payer OTHER, MEDICAID | END | disposition home or self-care (01) | LOC: US 10:23 | PROVIDERS: ATTEND Family Medicine | DX: R10.813 Right lower quadrant abdominal tenderness (principal) ==

== ENCOUNTER 2023-03-30 09:03 | Emergency (ER) | payer OTHER, MEDICAID ==
[~2023-03-30] VITALS: Ht 154.9 cm; Wt 56.7 kg
[2023-03-30 11:18] LABS: ACT PARTIAL THROMBO TIME 22.4 SECONDS (20.0-32.1)
[2023-03-30 11:24] LABS: ALKALINE PHOSPHATASE 99 U/L (46-116); BUN 9 mg/dl (9-23); CHLORIDE 97 mmol/L (98-107); SGPT/ALT 16 U/L (5-49); TOTAL PROTEIN 8.3 gm/dL (6.0-8.0)
[2023-03-30 11:32] LABS: POTASSIUM 2.4 mmol/L (3.4-5.1)
[2023-03-30 12:00] LABS: BASO % 0.3 % (0.0-1.0); EOS % 0.3 % (1.0-4.0); HEMATOCRIT 32.3 % (37.0-47.0); LYMPH # 0.9 10*3/uL (1.3-4.4); LYMPH % 13.2 % (27.0-41.0); MEAN CORPUSCULAR HGB 23.5 pg (27.0-31.0); MEAN CORPUSCULAR HGB CONC 29.4 g/dl (33.0-37.0); MEAN PLATELET VOLUME 9.3 fl (9.6-12.3); MONO # 0.4 10*3/uL (0.1-1.0); MONO % 5.6 % (3.0-9.0); NEUT # 5.6 10*3/uL (2.3-7.9); NEUT % 80.3 % (47.0-73.0); PLATELET COUNT AUTOMATED 244 10*3/uL (130-400); RED BLOOD COUNT 4.04 10*6/uL (4.10-5.10)
[2023-03-30 12:50] LABS: BILIRUBIN Negative (Negative); BLOOD Negative (Negative); CLARITY Clear (Clear); COLOR Yellow (Yellow); GLUCOSE Negative (Negative); KETONE Negative (Negative); LEUKO ESTERASE Negative (Negative); NITRITE Negative (Negative); UROBILINOGEN 0.2 E.U./dl (0.0-1.0)
[2023-03-30 13:02] LABS: BACTERIA 1+; WBC 0-2 wbc/hpf (0-5)
[2023-03-30 13:03] LABS: CALCIUM OXALATE CRYSTALS Trace
== END 2023-03-30 13:55 | disposition left against medical advice (07) ==
LOC: ED 09:03
PROVIDERS: Family Medicine
DX: R55 Syncope and collapse (principal); F41.9 Anxiety disorder, unspecified; E87.6 Hypokalemia; E86.0 Dehydration; F32.A Depression, unspecified; K21.9 Gastro-esophageal reflux disease without esophagitis; F17.200 Nicotine dependence, unspecified, uncomplicated; Z98.890 Other specified postprocedural states

== ENCOUNTER 2023-04-01 08:28 | Emergency (ER) | payer OTHER, MEDICAID ==
[~2023-04-01] VITALS: Ht 154.9 cm; Wt 55.8 kg
[2023-04-01 09:21] LABS: BASO % 0.4 % (0.0-1.0); EOS # 0.2 10*3/uL (0.0-0.4); EOS % 2.3 % (1.0-4.0); LYMPH # 1.5 10*3/uL (1.3-4.4); LYMPH % 20.8 % (27.0-41.0); MEAN CORPUSCULAR HGB 23.7 pg (27.0-31.0); MEAN CORPUSCULAR HGB CONC 28.3 g/dl (33.0-37.0); MEAN PLATELET VOLUME 9.8 fl (9.6-12.3); MONO # 0.4 10*3/uL (0.1-1.0); MONO % 5.1 % (3.0-9.0); NEUT # 5.1 10*3/uL (2.3-7.9); NEUT % 71.1 % (47.0-73.0); PLATELET COUNT AUTOMATED 215 10*3/uL (130-400); RED BLOOD COUNT 3.58 10*6/uL (4.10-5.10); RED CELL DISTRI WIDTH 18.5 % (0-14.5); WHITE BLOOD COUNT 7.1 10*3/uL (4.8-10.8)
[2023-04-01 09:32] LABS: ACT PARTIAL THROMBO TIME 24.5 SECONDS (20.0-32.1)
[2023-04-01 09:37] LABS: MEAN CELL VOLUME 83.8 fl (81.0-99.0)
[2023-04-01 09:38] LABS: BILIRUBIN Negative (Negative); BLOOD Negative (Negative); CLARITY Clear (Clear); COLOR Yellow (Yellow); GLUCOSE Negative (Negative); KETONE Negative (Negative); LEUKO ESTERASE 2+ (Negative); NITRITE Negative (Negative); UROBILINOGEN 0.2 E.U./dl (0.0-1.0)
[2023-04-01 09:40] LABS: ALKALINE PHOSPHATASE 75 U/L (46-116); BUN 11 mg/dl (9-23); CHLORIDE 105 mmol/L (98-107); LIPASE 41 U/L (12-53); POTASSIUM 2.7 mmol/L (3.4-5.1); SGPT/ALT 15 U/L (5-49); TOTAL PROTEIN 7.2 gm/dL (6.0-8.0)
[2023-04-01 09:41] LABS: ETHYL ALCOHOL < 3.0 mg/dl (<3)
[2023-04-01 09:43] LABS: URINE AMPHETAMINES Negative (1000ng/ml); URINE BARBITURATES Negative (200ng/ml); URINE BENZODIAZEPINES Positive (200ng/ml); URINE CANNABINOIDS (THC) Negative (50ng/ml); URINE COCAINE Negative (300ng/ml); URINE METHADONE Negative (300ng/ml); URINE OPIATES Negative (300ng/ml); URINE PHENCYCLIDINE Negative (25ng/ml)
[2023-04-01 10:28] LABS: BACTERIA TRACE; MUCOUS TRACE
[2023-04-01] MEDS ORDERED: POTASSIUM CHLO10 ME4 PO (12:24)
== END 2023-04-01 13:02 | disposition home or self-care (01) ==
LOC: ED 08:28
PROVIDERS: Internal Medicine
DX: R55 Syncope and collapse (principal); E87.6 Hypokalemia; F41.9 Anxiety disorder, unspecified; F32.A Depression, unspecified; K21.9 Gastro-esophageal reflux disease without esophagitis; F17.200 Nicotine dependence, unspecified, uncomplicated; Z79.899 Other long term (current) drug therapy; Z98.890 Other specified postprocedural states; Z90.89 Acquired absence of other organs

== ENCOUNTER 2023-04-12 03:34 | Emergency (ER) | payer OTHER, MEDICAID ==
[~2023-04-12 03:34] MED LIST changes: +POTASSIUM CHLO10 ME4 PO
[2023-04-12] MEDS ORDERED: SODIUM CHLORIDE 0.9% 1,000 ML IV ONE (03:45)
[2023-04-12] MEDS ORDERED: Ondansetron Hydrochloride 4 MG/2 ML VIAL IV ONE (03:45)
== END 2023-04-12 05:41 | disposition left against medical advice (07) ==
LOC: ED 03:34
DX: R51.9 Headache, unspecified (principal); R11.0 Nausea; F41.9 Anxiety disorder, unspecified; F32.A Depression, unspecified; K21.9 Gastro-esophageal reflux disease without esophagitis; Z53.29 Procedure and treatment not carried out because of patient's decision for other reasons; Z98.890 Other specified postprocedural states; Z90.89 Acquired absence of other organs; F17.200 Nicotine dependence, unspecified, uncomplicated

== ENCOUNTER 2023-04-12 05:53 | Emergency (ER) | payer OTHER, MEDICAID ==
[2023-04-12 06:29] LABS: BASO # 0.1 10*3/uL (0.0-0.1); BASO % 1.6 % (0.0-1.0); EOS # 0.1 10*3/uL (0.0-0.4); EOS % 1.6 % (1.0-4.0); HEMATOCRIT 33.5 % (37.0-47.0); MEAN CORPUSCULAR HGB 22.9 pg (27.0-31.0); MEAN PLATELET VOLUME 8.9 fl (9.6-12.3); MONO # 0.6 10*3/uL (0.1-1.0); MONO % 15.9 % (3.0-9.0); NEUT % 53.6 % (47.0-73.0); PLATELET COUNT AUTOMATED 366 10*3/uL (130-400); RED BLOOD COUNT 4.24 10*6/uL (4.10-5.10); RED CELL DISTRI WIDTH 17.6 % (0-14.5); WHITE BLOOD COUNT 3.7 10*3/uL (4.8-10.8)
[2023-04-12] MEDS ORDERED: Ondansetron Hydrochloride 4 MG TAB SL ONE (06:35)
[2023-04-12 06:55] LABS: ALKALINE PHOSPHATASE 80 U/L (46-116); BUN 8 mg/dl (9-23); CHLORIDE 108 mmol/L (98-107); ETHYL ALCOHOL 97.1 mg/dl (<3); LIPASE 35 U/L (12-53); POTASSIUM 3.5 mmol/L (3.4-5.1); TOTAL PROTEIN 8.1 gm/dL (6.0-8.0)
[2023-04-12 07:04] LABS: SGPT/ALT < 7 U/L (5-49)
[2023-04-12] MEDS ORDERED: Ketorolac Tromethamine 30 MG/ML VIAL IM ONE (07:10)
[2023-04-12] MEDS ORDERED: Promethazine Hydrochloride 25 MG/ML VIAL IM ONE (07:15)
== END 2023-04-12 09:47 | disposition home or self-care (01) ==
LOC: ED 05:53
PROVIDERS: Internal Medicine
DX: R19.7 Diarrhea, unspecified (principal); R51.9 Headache, unspecified; F41.9 Anxiety disorder, unspecified; F32.A Depression, unspecified; K21.9 Gastro-esophageal reflux disease without esophagitis; Z98.890 Other specified postprocedural states; Z79.899 Other long term (current) drug therapy; Z90.89 Acquired absence of other organs; F17.200 Nicotine dependence, unspecified, uncomplicated

== ENCOUNTER → 2023-06-29 | Outpatient (CLI) | payer OTHER, MEDICAID ==
[~2023-06-29] MED LIST changes: +BARIUM SULFATE 60% 355 ML BOT PO ONE; +BARIUM SULFATE 98% 340 GM BOT PO ONE; +BARIUM SULFATE TABLET 700 MG PO ONE; +SODIUM BICARBONATE 4 GM PACK PO ONE
== END | disposition home or self-care (01) ==
LOC: RAD 01:08
PROVIDERS: ATTEND Family Medicine
DX: K21.9 Gastro-esophageal reflux disease without esophagitis (principal); R07.9 Chest pain, unspecified; K44.9 Diaphragmatic hernia without obstruction or gangrene; R13.10 Dysphagia, unspecified; R10.13 Epigastric pain